=== PATIENT | male | born 1940 | race Caucasian/White ===

== ENCOUNTER 2024-05-18 13:01 | Inpatient (IN) | payer OTHER, SELFPAY ==
[2024-05-18] VITALS (14 sets, daily range): BP systolic 84–124; BP diastolic 46–74; BMI 21.5
[2024-05-18 11:04] LABS: % Basophils 0.2 % (0-2); % Immature Granulocytes 0.5 % (0-0.5); % Lymphocytes 3.7 % (20.5-51.1); % Monocytes 3.8 % (1.7-9.3); % Neutrophils 91.8 % (42.2-75.2); Absolute Immature Granulocytes 0.1 10^3/uL (0-0.05); Absolute Lymphocytes 0.4 10^3/uL (1.2-3.4); Absolute Monocytes 0.4 10^3/uL (0.1-0.6); Absolute Neutrophils 8.7 10^3/uL (1.4-6.5); Hematocrit 37.4 % (39.0-52.0); Hemoglobin 12.7 g/dL (13.0-18.0); Mean Corpuscular Volume 100.3 fL (80.0-94.0); Mean Platelet Volume 10.5 fL (7.4-10.4); Nucleated Red Blood Cells % 0 % (-); Platelet Count 138 10^3/uL (130-400); Red Blood Cell Count 3.73 10^6/uL (4.70-6.10); Red Cell Dist. Width 13.7 % (11.5-14.5); White Blood Cell Count 9.5 10^3/uL (4.8-10.8)
[2024-05-18 11:10] LABS: Urine Albumin 3+ (Neg - Trace); Urine Bilirubin 1+ (Negative); Urine Character Very Cloudy (Clear); Urine Glucose Negative (Negative); Urine Ketone Trace (Negative); Urine Leukocyte 2+ (Negative); Urine Nitrite Positive (Negative); Urine Occult Blood 4+ (Negative); Urine Specific Gravity 1.015 (<1.030); Urine Urobilinogen 2+ (Neg - 1+)
[2024-05-18 11:12] LABS: Urine Color Yellow
[2024-05-18 11:16] LABS: ALT (SGPT) 30 U/L (0-50); AST (SGOT) 61 U/L (17-59); Albumin 3.2 g/dl (3.5-5.0); Alkaline Phosphatase 108 U/L (38-126); Blood Urea Nitrogen 43 mg/dl (9-20); Calcium 9.5 mg/dl (8.4-10.2); Carbon Dioxide 27 mmol/L (22-30); Chloride 106 mmol/L (98-107); Estimated Creatinine Clearance 27 ml/min; Glucose 252 mg/dl (70-99); Potassium 3.9 mmol/L (3.5-5.1); Sodium 145 mmol/L (135-145); Total Bilirubin 1.3 mg/dl (0.2-1.3); eGFR 36.89
[2024-05-18 11:17] LABS: Lactic Acid 3.1 mmol/L (0.7-2.0)
[2024-05-18 11:25] LABS: Urine Mucus Few
[2024-05-18 11:26] LABS: Urine Bacteria Many (Negative); Urine Red Blood Cell 30-40 /HPF (0-2); Urine White Cell >100 /HPF (0-5)
--- NOTE | 2024-05-18 11:32 | ED.GENMED ---
History of Present Illness
General
Chief Complaint: Catheter/Tube Problem
Time Seen by Provider: 05/18/24 10:50
History of Present Illness
History of Present Illness:
83-year-old male with history of diabetes, hypertension, hyperlipidemia, neurogenic bladder with suprapubic catheter placement presenting for concern of fever and altered mental status. Patient arrives with his partner who reports this morning
patient woke up feeling very warm, and seemed confused. He notes that 2 days ago he took him to the urologist because he was pain with passage of urine to his suprapubic catheter. He was started on Azo, however no antibiotics. Reports history of
UTI in the past. Patient himself is a limited historian. Denies any chest pain, difficulty breathing, abdominal pain. No report of recent fall or trauma. Partner at bedside notes normal mentation as of last evening. No additional history
obtained at this time
Past History
Past History
ED Past Medical History: CAD, HTN, Hypercholesterolemia, NIDDM, CA and Other (cardiac)
ED Past Surgical History: Cardiac (CABG x 2 1994)
Social History
Tobacco: Non-smoker
Alcohol: None
Personal: Partner
Living: other
Employment: Retired
Family History
Family History: Other
Phy Exam
Physical Exam
Physical Exam:
General: Well-appearing, no clinical signs of dehydration, nontoxic and in no acute distress
HEENT: protecting airway
Neck: appears supple
CV: Normal heart rate, regular rhythm
Resp: No accessory muscle use, no increased work of breathing, lungs clear to auscultation bilaterally
Abd: Soft and non-distended, no tenderness to palpation
Extremities: No deformities, no swelling, no erythema, pulses and sensation intact
Neuro: alert, disoriented to place and time
: Suprapubic catheter in place, appropriately draining
Rectal: deferred
Psych: Normal affect
Skin: Intact
Sepsis
Sepsis Screening
Sepsis Assessment: Severe Sepsis
Sepsis Screening: Lactate >2mmol/L and Hypotension
Sepsis Screen
Sepsis Screen: Severe Sepsis
Date: 05/18/24
Time: 11:35
Course
Orders/Labs/Results
Orders:
Orders
05/18/24 10:51
Complete Blood Count/With Diff Urgent
Comprehensive Metabolic Panel Urgent
Lactate Level [Lactic Acid] Urgent
Urinalysis Reflex To Culture Urgent
Date Specimen was Collected: 05/18/24
Time Specimen was Collected: 10:49
Urine Microscopic Reflex Cult Urgent
Urine Culture Urgent
MAURO Source: U
Specimen Description:
Date Specimen was Collected: 05/18/24
Time Specimen was Collected: 10:49
05/18/24 10:55
Acetaminophen [Tylenol] 650 mg .ROUTE .STK-MED ONE
05/18/24 11:10
Blood Culture Urgent
MAURO Source: Blood/Venous
Specimen Description:
0.9% Sodium Chloride 1000 ml [Nss] 1,000 ml IV BOLUS
05/18/24 11:11
COVID-19 Antigen Urgent
Source: Nasal Swab
CR Chest - 2 Views Urgent
Comment:
Reason For Exam: sepsis
05/18/24 11:25
Cefepime HCl [Maxipime] 2,000 mg IV NOW STA
05/18/24 11:40
Blood Culture Routine
MAURO Source: Blood/Venous
Specimen Description:
Abnormal Lab Results
05/18/24
10:51
RBC 3.73 L 10^6/uL
(4.70-6.10)
Hgb 12.7 L g/dL
(13.0-18.0)
Hct 37.4 L %
(39.0-52.0)
MCV 100.3 H fL
(80.0-94.0)
MCH 34.0 H pg
(27.0-31.0)
MPV 10.5 H fL
(7.4-10.4)
Abs Immat Gran (auto) 0.1 H 10^3/uL
(0-0.05)
Absolute Neuts (auto) 8.7 H 10^3/uL
(1.4-6.5)
Absolute Lymphs (auto) 0.4 L 10^3/uL
(1.2-3.4)
Neutrophils % 91.8 H %
(42.2-75.2)
Lymphocytes % 3.7 L %
(20.5-51.1)
BUN 43 H mg/dl
(9-20)
Creatinine 1.8 H mg/dL
(0.7-1.3)
Glucose 252 H mg/dl
(70-99)
Lactic Acid 3.1 H mmol/L
(0.7-2.0)
AST 61 H U/L
(17-59)
Total Protein 6.0 L g/dl
(6.3-8.2)
Albumin 3.2 L g/dl
(3.5-5.0)
Urine Ketones Trace A
(Negative)
Ur Occult Blood Reflex 4+ A
(Negative)
Urine Nitrite (Reflex) Positive A
(Negative)
Urine Bilirubin 1+ A
(Negative)
Urine Urobilinogen 2+ A
(Neg - 1+)
Leukocyte Esterase Rfl 2+ A
(Negative)
Urine RBC 30-40 A /HPF
(0-2)
Urine WBC (Reflex) >100 A /HPF
(0-5)
Urine Bacteria (Reflex) Many A
(Negative)
Urine Albumin (Reflex) 3+ A
(Neg - Trace)
05/18/24 10:51
05/18/24 10:51
Vital Signs
Initial and Last Documented VS:
Initial Vital Signs
Pulse Resp BP Pulse Ox
90 18 102/54 98
05/18/24 10:32 05/18/24 10:32 05/18/24 10:32 05/18/24 10:32
Last Documented Vital Signs
Temp Pulse Resp BP Pulse Ox
101.2 F H 90 18 102/54 98
05/18/24 10:50 05/18/24 10:32 05/18/24 10:32 05/18/24 10:32 05/18/24 10:32
MDM/Problems Addressed
MDM/Problems Addressed:
83-year-old male with history of neurogenic bladder with suprapubic catheter, hypertension, hyperlipidemia, diabetes presenting for change in mental status and fever. Vital signs are significant for fever, hypotension, tachycardia.
On exam patient is in no acute distress, however does appear confused, disoriented to place and time. Patient and presenting vital signs concerning for sepsis, meeting SIRS criteria. Plan for laboratory analysis, lactic acid, blood cultures, IV
fluids. Suspected the source of infection is urine. Partner notes that patient was having pain with urination prior to catheter placement on Sunday. Will maintain. Will also check chest x-ray and COVID.
11:40 - Urine does show evidence of infection. Positive nitrites. Will start antibiotics. Will continue IV fluids. Lactate is 3, again consistent with sepsis. Plan for admission.
*Critical Care Note
Total Time (30-74mins, 75-104mins- exclusive of procedures): Not Applicable
ED Attending Note
-
Portions of this chart may have been created with voice recognition software.� Occasional wrong word or��sound alike� substitutions may have occurred due to the inherent limitations of voice recognition software.
Discharge Plan
Departure
Prescriptions:
No Action
donepezil 10 MG tablet
20 mg PO HS
ezetimibe 10 MG tablet
10 mg PO DAILY
rosuvastatin [Crestor] 40 MG tablet
40 mg PO DAILY
memantine 10 MG tablet
10 mg PO BID
metformin 500 MG tablet
500 mg PO BID
omega 7-oos-gdf-fish oil [Fish Oil] 1,200 (144-216) mg Capsule
1 cap PO BID
d-mannose Powder
1 ea PO BID
metoprolol tartrate 50 mg Tablet
50 mg PO BID
cyanocobalamin (vitamin B-12) 1,000 mcg Tablet
1,000 mcg PO DAILY
therapeutic multivitamin Tablet
1 tab PO DAILY
aspirin 81 mg Tablet,Delayed Release (Dr/Ec)
81 mg PO DAILY
Folic Acid 667 Dfe Folate
1 tab PO DAILY
amoxicillin-pot clavulanate 875-125 mg Tablet
1 tab PO Q12 7 Days Qty: 14 0RF
Referrals:
Mauricio Cook MD [Family Provider] -
Interventions
Interventions:
*Risk Screen - Suicide Last Done: 05/18/24 10:31
*General Assessment Last Done: 05/18/24 10:32
*Neglect/Abuse Screening Last Done: 05/18/24 10:31
ED- Fall Risk Assessment Last Done: 05/18/24 10:31
*ED COVID-19 Vaccine History Last Done: 05/18/24 10:31
WU-Dyqluj-Cjgvfamyet Assessment Last Done: 05/18/24 10:43
ED-Male Genitourinary Assessment Last Done: 05/18/24 10:43
Discharge Date and Time
Print Language: CZECH
[2024-05-18] MEDS: TYLENOL 650 MG PO (11:34)
[2024-05-18] MEDS: NSS 1000 IV ×2 (11:35→14:29)
[2024-05-18] MEDS: MAXIPIME 2000 MG IV (11:42)
[2024-05-18 12:03] LABS: COVID-19 Antigen Negative (Negative)
--- NOTE | 2024-05-18 12:18 | HPS.HSE ---
Family Physician
-
Family Physician: Mauricio Cook
Chief Complaint
-
fever confusion
History of Present Illness
83-year-old male with history of diabetes, hypertension, hyperlipidemia, neurogenic bladder with suprapubic catheter placement presenting for concern of fever and altered mental status. he had fever of 101 at home. his Welch was changed two days
ago by urology due to the catheter obstruction. patient complaining of pain at the cath site. denied ANNE, dizzy or syncopal episode. Patient denied chest pain or short of breath. Denied nausea vomiting diarrhea.
Positive urinalysis. Patient received cefepime in ER. Admitting for further management
Medical History
Past Medical History
Past Medical History: Reports Other
Additional Past Medical History:
Neurogenic bladder, CAD, hypertension, dementia, hyperlipidemia, type 2 diabetes,
Past Surgical History: Reports Other
Additional Past Surgical History:
Coronary artery bypass graft, cataract
Social History
Tobacco: Non-smoker
Alcohol: None
Drug: None
Personal:
Living: With Family
Family History
Family History: Not pertinent
Allergies / Home Medications
Allergies reflects when Allergies were last updated in [facility].
Home Medications with original date entered in [facility]
Allergy/Medication List:
Allergies
Allergy/AdvReac Type Severity Reaction Status Date / Time
No Known Allergies Allergy Verified 06/23/23 08:32
Home Medications
donepezil 10 mg tablet 20 mg PO HS memory 12/08/20
ezetimibe 10 mg tablet 10 mg PO DAILY High cholesterol 12/08/20
rosuvastatin 40 mg tablet (Crestor) 40 mg PO DAILY High cholesterol 12/08/20
memantine 10 mg tablet 10 mg PO BID memory 05/13/21
metformin 500 mg tablet 500 mg PO BID Diabetes 05/13/21
Folic Acid 667 Dfe Folate 1 tab PO DAILY Supplement 06/23/23
aspirin 81 mg tablet,delayed release 81 mg PO DAILY Blood Clot Prevention/Tx 06/23/23
cyanocobalamin (vitamin B-12) 1,000 mcg tablet 1,000 mcg PO DAILY Supplement 06/23/23
metoprolol tartrate 50 mg tablet 50 mg PO BID Blood Pressure 06/23/23
therapeutic multivitamin 1 tab PO DAILY Supplement 06/23/23
Review of Systems
-
Constitutional: Reports Fever, Fatigue and Chills
EENT: Reports No Symptoms
Respiratory: Reports No Symptoms
Cardiac: Reports No Symptoms
Abdomen/GI: Reports Abdominal Pain
: Reports Suprapubic Tube
Musculoskeletal: Reports No Symptoms
Skin: Reports No Symptoms
Neurological: Reports No Symptoms
Endocrine: Reports No Symptoms
Hematologic/Lymphatic: Reports No Symptoms
Psych: Reports No Symptoms
Physical Exam
Vital Signs
Vital Signs
Temp Pulse Resp BP Pulse Ox
101.2 F H 107 21 92/56 97
05/18/24 10:50 05/18/24 11:45 05/18/24 11:30 05/18/24 11:00 05/18/24 11:45
Physical Exam
General: Well Developed, Well Nourished and No Apparent Distress
HEENT: NormoCephalic, Moist mucous membranes and Atraumatic
Respiratory: Clear
Cardiac: S1/S2 and Regular Rhythm; No Murmur or Rub
GI: Soft, Non Tender, Non Distended, Normal Bowel Sounds and Tender; No Organomegaly
Rectal: Deferred by Provider
Musculoskeletal: No Clubbing, No Cyanosis and No Edema
Skin: No Rash
Neuro: Nonfocal/grossly intact
Psych: Calm
Laboratory Results
-
05/18/24 10:51
05/18/24 10:51
Laboratory Results
Lactic Acid 3.1 mmol/L (0.7-2.0) H 05/18/24 10:51
Total Bilirubin 1.3 mg/dl (0.2-1.3) 05/18/24 10:51
AST 61 U/L (17-59) H 05/18/24 10:51
ALT 30 U/L (0-50) 05/18/24 10:51
Alkaline Phosphatase 108 U/L (38-126) 05/18/24 10:51
Data Reviewed
-
Lab Data: Labs Reviewed by me
Impression/Plan
-
# Metabolic encephalopathy/fever likely from catheter associated urinary tract infection
# Neurogenic bladder
-Severe sepsis sepsis as evident Lactic 3.1, hypotension and tachycardia and fever
-Blood and urine culture sent from ER
-IV cefepime continued, Tylenol as needed for fever
-Trend lactic, curve WBCs
-obtain CT abdomen pelvis
-Fluids continued
# Acute kidney injury likely dehydration
-Creatinine 1.8
-Normal saline continued
-Monitor BMP in a.m.
# Type 2 diabetes
-Home metformin on hold due to lactic acidosis and ARINA
-Sliding scale
-CHO diet
#Hypertension
-Patient is hypotensive in ER
-Hold metoprolol
#Coronary artery disease CABG
#Hyperlipidemia
-Continue statin, Zetia
-Aspirin continued
#Dementia
-Continue donepezil memantine
DVT prophylaxis heparin subcu
Full code
--- NOTE | 2024-05-18 13:52 | W.PN.UPDATE ---
Update Note
Progress Note Update
This is an addendum to the H&P written by Heather Brown on 05/18/2024.� Patient seen and examined independently with [facility] [employer].
83-year-old male past medical history of CAD status post CABG, hypertension, hyperlipidemia, neurogenic bladder status post suprapubic catheter, CKD 3, dementia, presenting with fever, altered mental status.� He saw urologist 2 days ago due to block
suprapubic catheter was replaced at that time but is also having pain at the site of the catheter.�
Labs show ARINA with creatinine 1.8.
Concern for sepsis secondary to super catheter associated UTI.� Check blood cultures, IV fluids, cefepime, check CT abdomen pelvis to evaluate for clogged suprapubic catheter which has occurred in the past versus pyelonephritis.
[2024-05-18 16:21] LABS: Glucose - Point of Care 260 mg/dl (70-99)
[2024-05-18 16:37] LABS: Lactic Acid 1.2 mmol/L (0.7-2.0)
[2024-05-18] MEDS: NOVOLOG FLEXPEN-MODERATE RESISTANCE 5 UNITS SC (16:46)
[2024-05-18] MEDS: FLOMAX 0.4 MG PO (17:51)
[2024-05-18] MEDS: MAXIPIME 1000 MG IV (17:52)
[2024-05-18] MEDS: NAMENDA 5 MG PO (20:33)
[2024-05-18] MEDS: HEPARIN 5000 UNITS SC (20:33)
--- NOTE | 2024-05-18 20:48 | EDRN ---
Report received patient sleeping, did wake patient to see if he wants to eat dinner, helped cut up his chicken, patient appears to be eating without difficulty. New gown and linen placed on patient and pulled up in bed, will continue to monitor,
call danielle in reach.
[2024-05-18] MEDS: ARICEPT 20 MG PO (22:37)
[2024-05-18 22:42] LABS: Glucose - Point of Care 186 mg/dl (70-99)
[2024-05-19] VITALS (18 sets, daily range): BP systolic 96–127; BP diastolic 38–80
--- NOTE | 2024-05-19 00:46 | EDRN ---
Patient sleeping at this time, will continue to monitor
[2024-05-19] MEDS: NSS 1000 IV ×3 (01:01→20:06)
--- NOTE | 2024-05-19 02:42 | EDRN ---
Report to ANGIE Glasgow
[2024-05-19 06:25] LABS: Glucose - Point of Care 123 mg/dl (70-99)
[2024-05-19 07:02] LABS: Hematocrit 31.9 % (39.0-52.0); Hemoglobin 11.2 g/dL (13.0-18.0); Mean Corp Hgb Conc. 35.1 g/dL (33.0-37.0); Mean Corpuscular Hgb 35.6 pg (27.0-31.0); Mean Corpuscular Volume 101.3 fL (80.0-94.0); Mean Platelet Volume 10.2 fL (7.4-10.4); Platelet Count 109 10^3/uL (130-400); Red Blood Cell Count 3.15 10^6/uL (4.70-6.10); Red Cell Dist. Width 13.7 % (11.5-14.5); White Blood Cell Count 9.8 10^3/uL (4.8-10.8)
--- NOTE | 2024-05-19 09:18 | VNURNOTE ---
Chart reviewed. Patient is current with [facility] nursing. Will continue to follow hospital course and DC plans.
[2024-05-19] MEDS: HEPARIN 5000 UNITS SC ×2 (09:20→20:01)
[2024-05-19] MEDS: ASPIR LOW (ENTERIC COATED) 81 MG PO (09:20)
[2024-05-19] MEDS: FLOMAX 0.4 MG PO (09:20)
[2024-05-19 10:03] LABS: Hematocrit 30.6 % (39.0-52.0); Hemoglobin 10.5 g/dL (13.0-18.0); Mean Corp Hgb Conc. 34.3 g/dL (33.0-37.0); Mean Corpuscular Hgb 34.3 pg (27.0-31.0); Mean Platelet Volume 10.8 fL (7.4-10.4); Platelet Count 138 10^3/uL (130-400); Red Blood Cell Count 3.06 10^6/uL (4.70-6.10); Red Cell Dist. Width 13.7 % (11.5-14.5); White Blood Cell Count 8.9 10^3/uL (4.8-10.8)
[2024-05-19 10:07] LABS: Blood Urea Nitrogen 41 mg/dl (9-20); Calcium 8.3 mg/dl (8.4-10.2); Carbon Dioxide 25 mmol/L (22-30); Chloride 110 mmol/L (98-107); Estimated Creatinine Clearance 38 ml/min; Glucose 135 mg/dl (70-99); Sodium 144 mmol/L (135-145); eGFR 54.51
[2024-05-19] MEDS: CRESTOR 10 MG PO (10:48)
[2024-05-19] MEDS: ZETIA 10 MG PO (10:49)
[2024-05-19] MEDS: NAMENDA 5 MG PO ×2 (10:49→20:00)
[2024-05-19] MEDS: STERILE WATER FOR INJECTION 10 ML IV ×2 (11:52→23:21)
[2024-05-19] MEDS: MAXIPIME 1000 MG IV ×2 (11:53→23:20)
[2024-05-19 12:05] LABS: Glucose - Point of Care 127 mg/dl (70-99)
--- NOTE | 2024-05-19 12:12 | PTCARENOTE ---
Patient resting comfortably in bed, vitals stable. pt afebrile. Suprapubic catheter draining mallorie urine. Blanchable redness on patient sacrum, continues [id number] and pillow for offloading. Confirmed with MD that patient is NPO for possible surgery
today.
--- NOTE | 2024-05-19 12:27 | CONS.URO ---
Consultation
-
Date/Time Consultation Requested: 05/18
Date/Time Consultation Performed: 05/19
Requesting Provider: Hospitalist
Performing Provider: ED
Reason for Consultation: urosepsis, suspected CAUTI, non-obstructing distal right ureteral stone
Medical History
History of Present Illness
83M presents to ED w/ fever, altered mental status, tachycardia.
Noted fever 101F @home.
SPT changed in office due to blockage on 05/16/24 w/ 22Fr latex catheter.
SPT draining well @office visit.
Patient c/o pain at catheter site and general lower abdomen.
Denies N/V.
Past Medical History
Past Medical History: CAD, HTN, NIDDM and Other (dementia, hyperlipidemia, neurogenic bladder)
Past Surgical History: Cardiac (CABG), Urological (SPT placement) and Other (cataracts)
Social History
Tobacco: Non-smoker
Alcohol: None
Drug: None
Personal:
Living: With Family
Family History
Family History: Reviewed & Not Pertinent
Allergies/Home Medications
Allergies
Allergy/AdvReac Type Severity Reaction Status Date / Time
No Known Allergies Allergy Verified 06/23/23 08:32
Home Medications
�Medication �Instructions �Recorded �Confirmed �Type
donepezil 10 mg tablet 20 mg PO HS memory 12/08/20 05/18/24 History
ezetimibe 10 mg tablet 10 mg PO DAILY High cholesterol 12/08/20 05/18/24 History
rosuvastatin 40 mg tablet (Crestor) 40 mg PO DAILY High cholesterol 12/08/20 05/18/24 History
memantine 10 mg tablet 10 mg PO BID memory 05/13/21 05/18/24 History
metformin 500 mg tablet 500 mg PO BID Diabetes 05/13/21 05/18/24 History
Folic Acid 667 Dfe Folate 1 tab PO DAILY Supplement 06/23/23 05/18/24 History
aspirin 81 mg tablet,delayed 81 mg PO DAILY Blood Clot 06/23/23 05/18/24 History
release Prevention/Tx
cyanocobalamin (vitamin B-12) 1,000 mcg PO DAILY Supplement 06/23/23 05/18/24 History
1,000 mcg tablet
metoprolol tartrate 50 mg tablet 50 mg PO BID Blood Pressure 06/23/23 05/18/24 History
therapeutic multivitamin 1 tab PO DAILY Supplement 06/23/23 05/18/24 History
Review of Systems
-
History Source: Patient
A 12 point Review of Systems was completed except as noted: Yes
Physical Exam
Vital Signs
Vital Signs
Temp Pulse Resp BP Pulse Ox
97.3 F 67 22 127/62 95
05/19/24 11:31 05/19/24 11:45 05/19/24 11:45 05/19/24 11:00 05/19/24 11:31
Lab / Testing Results
Laboratory Results
05/19/24 09:37
05/19/24 09:37
Physical Exam
General: No Apparent Distress and Comfortable
HEENT: Normocephalic and Anicteric
Respiratory: Non Labored Respirations
Cardiac: Regular Rhythm
Breast: N/A
GI: Soft, Non Tender and Non Distended
Rectal: Deferred by Provider
Genito-urinary: No Costovertebral Tend and Suprapubic Tube
Musculoskeletal: No Edema
Skin: Warm and Dry
Neuro: AO x 3, No Motor Deficits and Nonfocal/Grossly Intact
Hematologic/Lymphatic: No Lymphadenopathy
Psych: Calm
Assessment / Plan
-
cUTI
Urosepsis
H/o neurogenic bladder w/ SPT drainage
Non-obstructing small right UVJ stone
Labs:
WBC WNL
Cr 1.8 => 1.3
UA +nitrites, >100 WBCs
BCx => E. Coli
UCx => GN bacilli
Imaging:
CTAP w/o IV contrast:
2 mm non-obstructing stone in right UVJ.
Mild distention of right ureter w/o right collecting system distention or hydronephrosis.
Left renal stones and renal cysts.
SPT extends into bladder, collapsed bladder. Mild bladder wall thickening and soft tissue stranding.
Cr improved w/ IVF hydration and IV antibiotics.
CT imaging reviewed - no radiographic evidence of obstructive uropathy.
Stone is small w/o evidence of right renal obstruction - high likelihood of spontaneous passage.
Afebrile and hemodynamically stable today (05/19) w/ clinical improvement noted.
- No indication for ureteroscopic intervention if afebrile and HDS
- CT imaging/report reviewed - no obstructive uropathy noted
- IV antibiotics pending Cx S/S (E. Coli)
- If SBPs allow, start tamsulosin 0.4 mg qhs to facilitate stone passage into bladder
- Will exchange SPT - may consider silastic catheter given recent obstructions
D/w ED physician.
D/w Dr. An.
Data Reviewed
-
Total Time Spent with Patient (in minutes): 4
CT Scan: Image personally visualized and interpreted, Report Reviewed by Me and Discussed with Physician
Lab Data: Labs Reviewed and Discussed with Physician
Old Records: Reviewed
[2024-05-19 15:14] LABS: Glucose - Point of Care 136 mg/dl (70-99)
--- NOTE | 2024-05-19 16:16 | CM ---
VM left for DIXON/Italo to obtain IA info as pt sleeping soundly in room
ED CM missed return call and left another VM
--- NOTE | 2024-05-19 16:27 | W.PN.HOSP.TC ---
Today's Communication/Plan
-
repeat blood cultures
cont cefepime
SPT exchange
IVF
Monitor blood culture clearance, BMP
Assessment / Plan
Assessment / Plan
Physical Exam
General: Well Developed, Well Nourished and No Apparent Distress
HEENT: NormoCephalic, Moist mucous membranes and Atraumatic
Respiratory: Clear
Cardiac: S1/S2 and Regular Rhythm; No Murmur or Rub
GI: Soft, Non Tender, Non Distended, Normal Bowel Sounds and Tender; No Organomegaly
Rectal: Deferred by Provider
Musculoskeletal: No Clubbing, No Cyanosis and No Edema
Skin: No Rash
Neuro: Nonfocal/grossly intact
Psych: Calm
#Complicated UTI
#Severe sepsis - Lactic 3.1, tachycardia and fever
#Bacteremia
--Blood and urine culture; repeat blood culture
-IV cefepime continued, Tylenol as needed for fever
-Trend lactic, curve WBCs
-Fluids continued
�SPT exchange
#H/o neurogenic bladder w/ SPT drainage
#Non-obstructing small right UVJ stone
--Fluids continued
�no evidence of obstruction, high likelihood of spontaneous passage
� Exchange SPT
� Urology consulted
� May start tamsulosin depending on blood pressures
� See plan for sepsis above
� No indication for acute urological procedure at this time
# Acute kidney injury likely septic ATN versus prerenal
-Creatinine 1.8�improved with fluids
-Continue IV fluids, monitor stone passage
-Monitor BMP in a.m.
# Metabolic encephalopathy/fever likely from catheter associated urinary tract infection
�Appears to have improved
# Type 2 diabetes
-Home metformin on hold due to lactic acidosis and ARINA
-Sliding scale
-CHO diet
#Hypertension
-Patient is hypotensive in ER
-Hold metoprolol
#Coronary artery disease CABG
#Hyperlipidemia
-Continue statin, Zetia
-Aspirin continued
#Dementia
-Continue donepezil memantine
DVT prophylaxis heparin subcu
Full code
Total time spent on today's encounter was 50 minutes which included time spent in counseling the patient/family regarding diagnosis and treatment plan as listed above, goals of care, and symptom management. Case was discussed with nursing staff,
specialists, and care coordinators/case management. All labs and imaging personally reviewed by me. Remainder the time spent in detailed review of previous records, lab data, imaging, and other medical provider documentation.
Anticipated Discharge: 24 - 48 hours
Subjective/Interval History
-
Date of Service: May 19, 2024
No acute events overnight
Objective Data
-
Labs:
Laboratory Results
05/19/24 05/19/24
06:13 09:37
WBC 9.8 8.9
Hgb 11.2 L 10.5 L
Hct 31.9 L 30.6 L
Plt Count 109 L D 138 D
Sodium 144
Potassium
Chloride 110 H
Carbon Dioxide 25
BUN 41 H
Creatinine 1.3
Glucose 135 H
Calcium 8.3 L
Total Bilirubin Cancelled
AST Cancelled
ALT Cancelled
Alkaline Phosphatase Cancelled
Vital Signs:
Vital Signs
Temp Pulse Resp BP Pulse Ox
98.1 F 64 19 107/55 98
05/19/24 14:22 05/19/24 14:22 05/19/24 14:22 05/19/24 14:22 05/19/24 14:25
I&O
05/18/24 05/19/24 05/20/24
06:59 06:59 06:59
Intake Total 1440 / 1440 400 / 400
Output Total 800 / 800 100 / 100
Balance 640 / 640 300 / 300
Review of Systems
-
History Source: Patient
All other systems: Not reviewed unless documented
Data Reviewed
-
Diagnostic Radiology: Image personally visualized and interpreted and Report Reviewed by me
CT Scan: Image personally visualized and interpreted and Report Reviewed by me
Labs: Labs Reviewed by me
[2024-05-19] MEDS: NOVOLOG FLEXPEN-MODERATE RESISTANCE SC (17:20)
[2024-05-19] MEDS: ARICEPT 20 MG PO (20:00)
[2024-05-19 21:23] LABS: Glucose - Point of Care 171 mg/dl (70-99)
[2024-05-20 07:26] VITALS: BP 145/82
[2024-05-20 07:38] LABS: Glucose - Point of Care 137 mg/dl (70-99)
--- NOTE | 2024-05-20 07:55 | W.PN.URO.CBU ---
Today's Communication / Plan
-
- No indication for ureteroscopic intervention
- CT imaging/report reviewed - no obstructive uropathy noted
- IV antibiotics pending Cx S/S
- continue tamsulosin 0.4 mg qhs to facilitate stone passage into bladder
- Resume regular SPT changes on discharge - may consider silastic catheter given recent obstructions
D/w patient.
D/w Dr. An.
Assessment / Plan
-
cUTI
Urosepsis
H/o neurogenic bladder w/ SPT drainage
Non-obstructing small right UVJ stone
WBC WNL
Cr 1.8 => 1.3 => 1.3
UA +nitrites, >100 WBCs
BCx => E. Coli
UCx => E. Coli, Oxytoca
SPT replaced w/ good drainage noted.
Cr improved w/ IVF + IV abx.
CT imaging reviewed - no radiographic evidence of obstructive uropathy.
Stone is small w/o evidence of right renal obstruction - high likelihood of spontaneous passage.
Diagnosis
-
Date of Service: May 20, 2024
-
Patient Diagnosis:
cUTI
Urosepsis
H/o neurogenic bladder w/ SPT
Non-obstructing small right UVJ stone
Subjective
-
Feels well.
Notes suprapubic and abdominal pain has resolved.
SPT draining clear yellow urine.
Denies right flank or abdominal pain.
Objective
-
Vital Signs
Temp Pulse Resp BP Pulse Ox
98.3 F 105 18 145/82 95
05/20/24 07:26 05/20/24 07:26 05/20/24 07:26 05/20/24 07:26 05/20/24 07:26
Intake and Output
05/19/24 05/20/24 05/21/24
06:59 06:59 06:59
Intake Total 1440 / 1440 1620 / 1620
Output Total 800 / 800 3200 / 3200
Balance 640 / 640 -1580 / -1580
Intake:
Oral fluids 1440 / 1440 720 / 720
IV fluids (Total) 900 / 900
Output:
Urine, Welch 2200 / 2200
Urine, Voided 450 / 450
Suprapubic output 350 / 350 1000 / 1000
Laboratory Results
05/20/24 07:10
05/20/24 07:10
Physical Exam
-
General - well developed, well nourished, no acute distress
Abdomen - soft, non-tender, non-distended, 22Fr latex SPT in place draining clear yellow urine, no discharge/purulence/erythema @SPT site
Genitalia - normal
Skin - warm & dry with no rash
Neuro - AOx3, no motor deficits
Extremities - no clubbing, no cyanosis, no edema
Care Review
Data Reviewed
Discussed with: Hospitalist
CT Scan: Report Pers Reviewed and Image Pers Reviewed
[2024-05-20 08:11] LABS: ALT (SGPT) 187 U/L (0-50); AST (SGOT) 290 U/L (17-59); Albumin 2.5 g/dl (3.5-5.0); Alkaline Phosphatase 96 U/L (38-126); Blood Urea Nitrogen 29 mg/dl (9-20); Calcium 8.1 mg/dl (8.4-10.2); Carbon Dioxide 21 mmol/L (22-30); Chloride 110 mmol/L (98-107); Estimated Creatinine Clearance 38 ml/min; Glucose 130 mg/dl (70-99); Magnesium 2.1 mg/dl (1.6-2.3); Potassium 3.5 mmol/L (3.5-5.1); Sodium 143 mmol/L (135-145); Total Bilirubin 1.1 mg/dl (0.2-1.3); eGFR 54.51
[2024-05-20 08:12] LABS: Hematocrit 30.3 % (39.0-52.0); Hemoglobin 10.8 g/dL (13.0-18.0); Mean Corp Hgb Conc. 35.6 g/dL (33.0-37.0); Mean Corpuscular Hgb 35.3 pg (27.0-31.0); Mean Platelet Volume 10.1 fL (7.4-10.4); Platelet Count 110 10^3/uL (130-400); Red Blood Cell Count 3.06 10^6/uL (4.70-6.10); Red Cell Dist. Width 13.4 % (11.5-14.5); White Blood Cell Count 6.5 10^3/uL (4.8-10.8)
[2024-05-20] MEDS: NOVOLOG FLEXPEN-MODERATE RESISTANCE SC (08:27)
[2024-05-20] MEDS: NSS 1000 IV (08:28)
[2024-05-20] MEDS: NAMENDA 5 MG PO ×2 (08:28→21:41)
[2024-05-20] MEDS: HEPARIN 5000 UNITS SC ×2 (08:29→21:41)
[2024-05-20] MEDS: ASPIR LOW (ENTERIC COATED) 81 MG PO (08:29)
[2024-05-20] MEDS: FLOMAX 0.4 MG PO (08:29)
[2024-05-20] MEDS: ZETIA 10 MG PO (08:29)
[2024-05-20] MEDS: CRESTOR 10 MG PO (08:29)
--- NOTE | 2024-05-20 10:32 | PTCARENOTE ---
pt awake oriented to self. states no pain. room air. ivf running as ordered. suprapubic tube in place
[2024-05-20 11:34] LABS: Glucose - Point of Care 203 mg/dl (70-99)
[2024-05-20] MEDS: STERILE WATER FOR INJECTION 10 ML IV (11:43)
[2024-05-20] MEDS: MAXIPIME 1000 MG IV (11:43)
[2024-05-20] MEDS: NOVOLOG FLEXPEN-MODERATE RESISTANCE 3 UNITS SC (11:44)
--- NOTE | 2024-05-20 11:50 | CM ---
Addendum entered by Jeanette Carson 05/20/24 15:40:
Patient is current with [facility], [facility] will follow with patient after discharge
Plan; Home with [facility].
Original Note:
logistics planning manager reviewed patient's chart and met with patient and patient states that he lives with his spouse in a 2 story home, patient is independent with adl's and ambulation, no dme.
PCP: Dr. Crum
Pharamcy: Frank López
Plan; Home with spouse when stable, no needs.
--- NOTE | 2024-05-20 14:08 | W.PN.HOSP.TC ---
Today's Communication/Plan
-
f/u repeat blood cultures
Cont ivf, monitor bmp
ID consulted - anticipate switching to oral regimen within 24-48 hours
Assessment / Plan
Assessment / Plan
#Complicated UTI
#Severe sepsis - Lactic 3.1, tachycardia and fever
#Bacteremia
--Blood and urine culture; repeat blood culture; Urine: Klebsiella oxytoca, E. coli; blood cultures E. coli
-IV cefepime continued, Tylenol as needed for fever
-Trend lactic, curve WBCs
-Fluids continued
�SPT exchange
-ID consulted
#H/o neurogenic bladder w/ SPT drainage
#Non-obstructing small right UVJ stone
--Fluids continued
�no evidence of obstruction, high likelihood of spontaneous passage
� Successful Exchange SPT 05/19
� Urology consulted
� tamsulosin
� See plan for sepsis above
� No indication for acute urological procedure at this time
- Resume regular SPT changes on discharge - may consider silastic catheter given recent obstructions
# Acute kidney injury likely septic ATN versus prerenal - resolving
-Creatinine 1.8�improved with fluids
-Continue IV fluids, monitor stone passage
-Monitor BMP in a.m.
# Transaminitis
� Bilirubin within normal limits, alk phos within normal limits
� Most likely secondary to infection
� Continue to monitor outpatient
�CT abdomen/pelvis with no remarkable findings in the liver, gallbladder, biliary duct, pancreas
# Metabolic encephalopathy/fever likely from catheter associated urinary tract infection
�resolved
# Type 2 diabetes
-Home metformin on hold due to lactic acidosis and ARINA
-Sliding scale
-CHO diet
#Hypertension
-Patient is hypotensive in ER
-Hold metoprolol
#Coronary artery disease CABG
#Hyperlipidemia
-Continue statin, Zetia
-Aspirin continued
#Dementia
-Continue donepezil memantine
DVT prophylaxis heparin subcu
Full code
Total time spent on today's encounter was 53 minutes which included time spent in counseling the patient/family regarding diagnosis and treatment plan as listed above, goals of care, and symptom management. Case was discussed with nursing staff,
specialists, and care coordinators/case management. All labs and imaging personally reviewed by me. Remainder the time spent in detailed review of previous records, lab data, imaging, and other medical provider documentation.
Anticipated Discharge: 24 - 48 hours
Subjective/Interval History
-
Date of Service: May 20, 2024
No acute events overnight
Objective Data
-
Labs:
Laboratory Results
05/20/24
07:10
WBC 6.5
Hgb 10.8 L
Hct 30.3 L
Plt Count 110 L D
Sodium 143
Potassium 3.5
Chloride 110 H
Carbon Dioxide 21 L
BUN 29 H
Creatinine 1.3
Glucose 130 H
Calcium 8.1 L
Total Bilirubin 1.1
AST 290 H
ALT 187 H
Alkaline Phosphatase 96
Vital Signs:
Vital Signs
Temp Pulse Resp BP Pulse Ox
98.3 F 105 18 145/82 95
05/20/24 07:26 05/20/24 07:26 05/20/24 07:26 05/20/24 07:26 05/20/24 07:26
I&O
05/19/24 05/20/24 05/21/24
06:59 06:59 06:59
Intake Total 1440 / 1440 1620 / 1620
Output Total 800 / 800 3200 / 3200
Balance 640 / 640 -1580 / -1580
Review of Systems
-
History Source: Patient
All other systems: Not reviewed unless documented
Physical Exam
-
General: No Apparent Distress
HEENT: Moist Mucous Membranes
Respiratory: Clear to Auscultation
Cardiac: Regular Rhythm and S1/S2
GI: Soft, Nontender, Nondistended and Normal Bowel Sounds
Genito-urinary: Supra Pubic Tube (22Fr latex SPT in place draining clear yellow urine, no discharge/purulence/erythema @SPT site)
Neuro: AO x 3
Psych: Calm; Negative Confused or Agitated
Data Reviewed
-
Diagnostic Radiology: Image personally visualized and interpreted and Report Reviewed by me
CT Scan: Image personally visualized and interpreted and Report Reviewed by me
Labs: Labs Reviewed by me
[2024-05-20] MEDS: LR 1000 IV (14:40)
--- NOTE | 2024-05-20 15:07 | CON.ID ---
Consultation
-
Date/Time Consultation Requested: 05/20/2024 0919
Date/Time Consultation Performed: 05/20/2024 1450
Requesting Provider: Dr. An
Performing Provider: Dr. Gtz
Reason for Consultation: Bacteremia; complicated urinary tract infection
Chief Complaint / Past History
History of Present Illness
Glenroy Benoit is an 83-year-old man with a significant past medical history of neurogenic bladder and chronic suprapubic catheter being evaluated at the request of Dr. An regarding a complicated urinary tract infection and bacteremia.
History is obtained from chart review along with patient interview although the patient was found to be able to provide very little in the way of history.
The patient presents to [facility] on 05/18 after his partner reported a change in mental status earlier in the day. ER notes report that confusion was noted to some degree on the day of admission. 2 days prior, the patient was seen by
Neurology and had his suprapubic catheter changed. Prior to arrival in the ER, the patient was noted to have a fever to 101 degrees at home.
At presentation, the patient was not noted to have a leukocytosis but did have a fever to 101.2 degrees. Blood cultures obtained at the time of admission are now positive for E. coli, and Infectious Diseases is asked to comment upon further
antimicrobial management.
At the present time, the patient denies any pain. He denies any headache. Denies any shortness of breath, cough or congestion. He denies any abdominal discomfort. He describes no suprapubic discomfort.
Past History
Additional Past Medical History:
CAD; Hx UT
HTN
Dyslipidemia
Diabetes mellitus
CKD
Neurogenic bladder
Additional Past Surgical History:
CABG (1994)
Suprapubic catheter placement
Allergy History:
No Known Allergies Allergy (Verified 06/23/23 08:32)
Medications Reviewed: Yes
Current Antibiotics:
Cefepime 1 g IV every 12 hours
Social History
Tobacco: Non-Smoker
Alcohol: None
Drug: None
Personal: Partner
Living: With Family
Employment: Retired
Family History
Family History: Not Pertinent
Review of Systems
Vital Signs
Temp Pulse Resp BP Pulse Ox
98.3 F 105 18 145/82 95
05/20/24 07:26 05/20/24 07:26 05/20/24 07:26 05/20/24 07:26 05/20/24 07:26
Physical Exam
Physical Exam
Constitutional: No Acute Distress, Comfortable and Non-toxic
Eyes: Pupils Equal, Pupils Round, No Conjunctival Hemorrhage and Sclera Anicteric
Oral: No Thrush and No Ulcers
Cardiovascular: Regular Rate and S1/S2; Negative S3/S4
Pulmonary: Clear; Negative Wheezes, Rales or Rhonchi
Gastrointestinal: Soft, Non Tender, Non Distended, Normal Bowel Sounds, No Rebound and No Guarding
Genito-Urinary: Welch (Suprapubic) and Clear Urine; Negative Suprapubic Tenderness, Turbid Urine or Hematuria
Extremities: Negative Edema, Cyanosis, Erythema or Venous Insufficiency
Neurological: Awake and Alert
Psychological: Confused
.
Lab / Diagnostic Study Results
05/20/24 07:10
05/20/24 07:10
Abs Immat Gran (auto) 0.1 10^3/uL (0-0.05) H 05/18/24 10:51
Absolute Neuts (auto) 8.7 10^3/uL (1.4-6.5) H 05/18/24 10:51
Absolute Lymphs (auto) 0.4 10^3/uL (1.2-3.4) L 05/18/24 10:51
Absolute Monos (auto) 0.4 10^3/uL (0.1-0.6) 05/18/24 10:51
Absolute Basos (auto) 0.0 10^3/uL (0-0.2) 05/18/24 10:51
Immature Gran % 0.5 % (0-0.5) 05/18/24 10:51
Neutrophils % 91.8 % (42.2-75.2) H 05/18/24 10:51
Lymphocytes % 3.7 % (20.5-51.1) L 05/18/24 10:51
Monocytes % 3.8 % (1.7-9.3) 05/18/24 10:51
Eosinophils % 0.0 % (0-6) 05/18/24 10:51
Basophils % 0.2 % (0-2) 05/18/24 10:51
Lactic Acid Cancelled 05/18/24 23:00
Ur Squamous Epith Cells 3-5 /LPF (Few) 05/18/24 10:51
Microbiology Results
Micro:
05/19/24 09:58 Blood Culture - Preliminary
Blood/Venous No Growth in 24 hours- Final report to follow
05/20/24 09:29 Blood Culture - Pending
Blood/Venous
05/18/24 10:51 Urine Culture - Final
Urine Escherichia coli
Klebsiella oxytoca
05/18/24 11:32 Blood Culture - Preliminary
Blood/Venous Positive culture in progress
Gram Stain - Final
05/18/24 11:32 Blood Culture - Preliminary
Blood/Venous Escherichia coli
Gram Stain - Final
Imaging:
05/18/2024 CT abdomen/pelvis without contrast: The suprapubic catheter extends into the bladder lumen. Bladder is collapsed. Mild bladder wall thickening and soft tissue stranding which may be acute versus chronic inflammatory changes or cystitis.
No bladder calculus. No ascites or adenopathy. A 2 mm calculus is in the right ureterovesical junction. Mild distention of the ureter. No significant intra renal collecting system distention or hydronephrosis noted. Please see full dictation
for additional detail.
Assessment / Plan
E. coli bacteremia
Complicated urinary tract infection (CAUTI; POA)
Fever
ARINA; improved
Transaminitis
CAD; Hx UT
HTN
Dyslipidemia
Diabetes mellitus
Neurogenic bladder; suprapubic catheter in place
Recommendations:
Continue with cefepime for the present.
Follow white count and temperature curve.
Trend LFTs
Further recommendations as additional data is returned.
[2024-05-20 15:10] VITALS: BP 120/58
[2024-05-20 16:06] LABS: Glucose - Point of Care 188 mg/dl (70-99)
[2024-05-20] MEDS: NOVOLOG FLEXPEN-MODERATE RESISTANCE 1 UNITS SC (17:00)
[2024-05-20 21:12] LABS: Glucose - Point of Care 236 mg/dl (70-99)
[2024-05-20] MEDS: ARICEPT 20 MG PO (21:42)
[2024-05-20 22:42] VITALS: BP 151/71
[2024-05-21] MEDS: STERILE WATER FOR INJECTION 10 ML IV ×2 (01:00→13:52)
[2024-05-21] MEDS: MAXIPIME 1000 MG IV ×2 (01:00→13:51)
[2024-05-21] MEDS: LR 1000 IV (04:00)
--- NOTE | 2024-05-21 07:42 | W.PN.URO.CBU ---
Today's Communication / Plan
-
- CT imaging/report reviewed - no obstructive uropathy noted
- IV Cefepime per ID Cx S/S
- continue tamsulosin 0.4 mg qhs to facilitate stone passage into bladder
- Resume regular SPT changes w/ VN on discharge - may consider silastic catheter given recent obstructions
D/w patient.
D/w Dr. An.
Assessment / Plan
-
Urosepsis
E. Coli bacteremia
H/o neurogenic bladder w/ SPT drainage
Non-obstructing small right UVJ stone
WBC WNL
Cr 1.8 => 1.3 => 1.3
UA +nitrites, >100 WBCs
BCx => E. Coli
UCx => E. Coli, Oxytoca
SPT exchanged w/ clear UOP.
Cr improved w/ IVF + IV abx.
CT imaging reviewed - no radiographic evidence of obstructive uropathy.
Diagnosis
-
Date of Service: May 21, 2024
-
Patient Diagnosis:
Post Op Day:
Patient Diagnosis:
cUTI
Urosepsis
H/o neurogenic bladder w/ SPT
Non-obstructing small right UVJ stone
Subjective
-
Feels well.
Afebrile.
SPT exchanged and draining clear urine.
Suprapubic/abdominal pain resolved.
Tolerating diet.
Objective
-
Vital Signs
Temp Pulse Resp BP Pulse Ox
98.2 F 75 20 143/70 95
05/21/24 07:49 05/21/24 07:49 05/21/24 07:49 05/21/24 07:49 05/21/24 07:49
Intake and Output
05/20/24 05/21/24 05/22/24
06:59 06:59 06:59
Intake Total 1620 / 1620 1750 / 1750
Output Total 3200 / 3200 4250 / 4250
Balance -1580 / -1580 -2500 / -2500
Intake:
Oral fluids 720 / 720 600 / 600
IV fluids (Total) 900 / 900 1150 / 1150
Output:
Urine, Welch 2200 / 2200
Suprapubic output 1000 / 1000 4250 / 4250
Physical Exam
-
General - well developed, well nourished, no acute distress
Abdomen - soft, non-tender, non-distended, SPT in place draining clear urine, no purulent discharge or erythema @SPT site
Genitalia - normal
Skin - warm & dry with no rash
Extremities - no clubbing, no cyanosis, no edema
Care Review
Data Reviewed
Discussed with: Hospitalist
CT Scan: Report Pers Reviewed and Image Pers Reviewed
[2024-05-21 07:49] VITALS: BP 143/70
[2024-05-21 08:04] LABS: Glucose - Point of Care 167 mg/dl (70-99)
[2024-05-21 08:21] LABS: Hematocrit 30.3 % (39.0-52.0); Hemoglobin 10.7 g/dL (13.0-18.0); Mean Corp Hgb Conc. 35.3 g/dL (33.0-37.0); Mean Corpuscular Hgb 33.4 pg (27.0-31.0); Mean Corpuscular Volume 94.7 fL (80.0-94.0); Platelet Count 124 10^3/uL (130-400); White Blood Cell Count 6.2 10^3/uL (4.8-10.8)
[2024-05-21] MEDS: NOVOLOG FLEXPEN-MODERATE RESISTANCE 1 UNITS SC ×3 (08:21→16:12)
[2024-05-21] MEDS: HEPARIN 5000 UNITS SC (08:22)
[2024-05-21] MEDS: NAMENDA 5 MG PO (08:24)
[2024-05-21] MEDS: ASPIR LOW (ENTERIC COATED) 81 MG PO (08:24)
[2024-05-21] MEDS: ZETIA 10 MG PO (08:25)
[2024-05-21] MEDS: FLOMAX 0.4 MG PO (08:25)
[2024-05-21] MEDS: CRESTOR 10 MG PO (08:25)
[2024-05-21 08:49] LABS: ALT (SGPT) 123 U/L (0-50); AST (SGOT) 88 U/L (17-59); Albumin 2.5 g/dl (3.5-5.0); Alkaline Phosphatase 103 U/L (38-126); Blood Urea Nitrogen 22 mg/dl (9-20); Calcium 8.3 mg/dl (8.4-10.2); Carbon Dioxide 23 mmol/L (22-30); Chloride 108 mmol/L (98-107); Estimated Creatinine Clearance 45 ml/min; Glucose 164 mg/dl (70-99); Potassium 3.4 mmol/L (3.5-5.1); Sodium 143 mmol/L (135-145); Total Bilirubin 0.8 mg/dl (0.2-1.3); Total Protein 5.1 g/dl (6.3-8.2); eGFR > 60.00
[2024-05-21 11:50] LABS: Glucose - Point of Care 191 mg/dl (70-99)
--- NOTE | 2024-05-21 12:21 | W.PN.ID1 ---
Date of Service
Date of Service: May 21, 2024
Today's Communication
Transition to cefdinir.
Assessment / Plan
E. coli bacteremia
Complicated urinary tract infection (CAUTI; POA)
Fever
ARINA; improved
Transaminitis
CAD; Hx HI
HTN
Dyslipidemia
Diabetes mellitus
Neurogenic bladder; suprapubic catheter in place
Recommendations:
Patient overall clinically improved.
Transition to oral cefdinir, to complete 7 more days of antibiotics.
Chief Complaint
-: UTI and Bacteremia
Subjective / Review of Systems
Patient seen and examined. Denies specific complaints. No fevers or chills.
Vital Signs / Physical Exam
Vital Signs
Vital Signs
Temp Pulse Resp BP Pulse Ox
98.2 F 75 20 143/70 95
05/21/24 07:49 05/21/24 07:49 05/21/24 07:49 05/21/24 07:49 05/21/24 07:49
Physical Exam
Constitutional: No Acute Distress, Comfortable, Chronically Ill and Non-toxic
Eyes: Sclera Anicteric
Cardiovascular: S1/S2; Negative S3/S4
Pulmonary: Non Labored
Gastrointestinal: Soft and Non Tender
Genito-Urinary: Welch (Suprapubic) and Clear Urine; Negative Suprapubic Tenderness, Turbid Urine or Hematuria
Neurological: Awake and Alert
Psychological: Calm
Objective Data
Lab Data
Lab Results
05/21/24 07:53
05/21/24 07:53
Estimated Creat Clear 45 ml/min 05/21/24 07:53
Lactic Acid Cancelled 05/18/24 23:00
Total Bilirubin 0.8 mg/dl (0.2-1.3) 05/21/24 07:53
AST 88 U/L (17-59) H 05/21/24 07:53
ALT 123 U/L (0-50) H 05/21/24 07:53
Alkaline Phosphatase 103 U/L (38-126) 05/21/24 07:53
Most recent labs reviewed.
Micro Results:
05/18/24 11:32 Blood Culture - Final
Blood/Venous Escherichia coli
Gram Stain - Final
05/18/24 11:32 Blood Culture - Final
Blood/Venous Escherichia coli
Gram Stain - Final
05/19/24 09:58 Blood Culture - Preliminary
Blood/Venous No Growth in 48 hours- Final report to follow
05/20/24 09:29 Blood Culture - Preliminary
Blood/Venous No Growth in 24 hours- Final report to follow
05/18/24 10:51 Urine Culture - Final
Urine Escherichia coli
Klebsiella oxytoca
Imaging:
05/18/2024 CT abdomen/pelvis without contrast: The suprapubic catheter extends into the bladder lumen. Bladder is collapsed. Mild bladder wall thickening and soft tissue stranding which may be acute versus chronic inflammatory changes or cystitis.
No bladder calculus. No ascites or adenopathy. A 2 mm calculus is in the right ureterovesical junction. Mild distention of the ureter. No significant intra renal collecting system distention or hydronephrosis noted. Please see full dictation
for additional detail.
Care Review
Plan reviewed with: Physician (Hospitalist)
--- NOTE | 2024-05-21 13:06 | W.PN.HOSP.TC ---
Addendum entered and electronically signed by Kang An MD 05/21/24 18:03:
[id number]
Original Note:
Today's Communication/Plan
-
cefdinir x 7 days
f/u with pcp, urology
SPT exchange by VN
Assessment / Plan
Assessment / Plan
#Complicated UTI ([place], POA)
#Severe sepsis - Lactic 3.1, tachycardia and fever
#Bacteremia, E. coli
--Blood and urine culture; repeat blood culture; Urine: Klebsiella oxytoca, E. coli; blood cultures E. coli
-IV cefepime continued, Tylenol as needed for fever�transition over to cefdinir to complete 7 more days
�SPT exchange - VN at home
-ID consulted
-F/u urology outpatient
#H/o neurogenic bladder w/ SPT drainage
#Non-obstructing small right UVJ stone
--Fluids continued
�no evidence of obstruction, high likelihood of spontaneous passage
� Successful Exchange SPT 05/19
� Urology consulted
� tamsulosin
� See plan for sepsis above
� No indication for acute urological procedure at this time
- Resume regular SPT changes on discharge - may consider silastic catheter given recent obstructions
# Acute kidney injury likely septic ATN versus prerenal - resolved
-Creatinine 1.8�improved with fluids
-Monitor BMP outpatient
# Transaminitis
� Bilirubin within normal limits, alk phos within normal limits
� Most likely secondary to infection
- improving
� Continue to monitor outpatient
�CT abdomen/pelvis with no remarkable findings in the liver, gallbladder, biliary duct, pancreas
#Hypokalemia
-monitor and replete
# Metabolic encephalopathy/fever likely from catheter associated urinary tract infection
�resolved
# Type 2 diabetes
-metformin
-Sliding scale
-CHO diet
#Hypertension
resume metoprolol
#Coronary artery disease CABG
#Hyperlipidemia
-Continue statin, Zetia
-Aspirin continued
#Dementia
-Continue donepezil memantine
DVT prophylaxis heparin subcu
Full code
More than 30 minutes spent in discharge including
Final examination of the patient
Summarizing hospital stay
Instructions for continuing care to all relevant caregivers
Preparation of discharge records, prescriptions, and referral forms
Total time spent (35 in minutes):
Anticipated Discharge: Today
Subjective/Interval History
-
Date of Service: May 21, 2024
No acute events overnight
Objective Data
-
Labs:
Laboratory Results
05/21/24
07:53
WBC 6.2
Hgb 10.7 L
Hct 30.3 L
Plt Count 124 L
Sodium 143
Potassium 3.4 L
Chloride 108 H
Carbon Dioxide 23
BUN 22 H
Creatinine 1.1
Glucose 164 H
Calcium 8.3 L
Total Bilirubin 0.8
AST 88 H
ALT 123 H
Alkaline Phosphatase 103
Vital Signs:
Vital Signs
Temp Pulse Resp BP Pulse Ox
98.2 F 75 20 143/70 95
05/21/24 07:49 05/21/24 07:49 05/21/24 07:49 05/21/24 07:49 05/21/24 07:49
I&O
05/20/24 05/21/24 05/22/24
06:59 06:59 06:59
Intake Total 1620 / 1620 1750 / 1750
Output Total 3200 / 3200 4250 / 4250
Balance -1580 / -1580 -2500 / -2500
Review of Systems
-
History Source: Patient
All other systems: Not reviewed unless documented
Physical Exam
-
General: No Apparent Distress
HEENT: Moist Mucous Membranes
Respiratory: Clear to Auscultation
Cardiac: Regular Rhythm and S1/S2
GI: Soft, Nontender, Nondistended and Normal Bowel Sounds
Genito-urinary: Supra Pubic Tube (22Fr latex SPT in place draining clear yellow urine, no discharge/purulence/erythema @SPT site)
Neuro: AO x 3
Psych: Calm; Negative Confused or Agitated
Data Reviewed
-
Diagnostic Radiology: Image personally visualized and interpreted and Report Reviewed by me
CT Scan: Image personally visualized and interpreted and Report Reviewed by me
Labs: Labs Reviewed by me
--- NOTE | 2024-05-21 13:10 | W.DS.TRANS ---
DC Summary - [employer]
-
Discharge Instructions:
Discharge Diagnosis/Procedures Complicated UTI
E. coli bacteremia
ARINA
Diet Diabetic, Carb Controlled,Low Cholesterol,Low
Fat
Activity As tolerated
Blood Work CBC, CMP(K and LFTs) in 3 to 5 days with PCP
Instructions:
Stand-Alone Forms:
Changes to Home Medications: No
Discharge Medications:
DC Medications w/original date entered in [employer]
donepezil 10 mg tablet 20 mg PO HS memory 12/08/20
ezetimibe 10 mg tablet 10 mg PO DAILY High cholesterol 12/08/20
rosuvastatin 40 mg tablet (Crestor) 40 mg PO DAILY High cholesterol 12/08/20
memantine 10 mg tablet 10 mg PO BID memory 05/13/21
metformin 500 mg tablet 500 mg PO BID Diabetes 05/13/21
Folic Acid 667 Dfe Folate 1 tab PO DAILY Supplement 06/23/23
aspirin 81 mg tablet,delayed release 81 mg PO DAILY Blood Clot Prevention/Tx 06/23/23
cyanocobalamin (vitamin B-12) 1,000 mcg tablet 1,000 mcg PO DAILY Supplement 06/23/23
metoprolol tartrate 50 mg tablet 50 mg PO BID Blood Pressure 06/23/23
therapeutic multivitamin 1 tab PO DAILY Supplement 06/23/23
cefdinir 300 mg capsule 300 mg PO Q12 7 days #14 caps 05/21/24
tamsulosin 0.4 mg capsule 0.4 mg PO DAILY 30 days #30 caps 05/21/24
Home Medication Changes
cefdinir 300 mg capsule 300 mg PO Q12 7 days #14 caps 05/21/24
tamsulosin 0.4 mg capsule 0.4 mg PO DAILY 30 days #30 caps 05/21/24
Pending Results: No
--- NOTE | 2024-05-21 13:20 | CM ---
Plan Home with [facility].
Plan; Home with [facility]
[2024-05-21] MEDS: KCL ELIXIR 40 MEQ PO (13:50)
[2024-05-21] MEDS: MAXIPIME IV (14:15)
[2024-05-21] MEDS: STERILE WATER FOR INJECTION IV (14:15)
[2024-05-21 15:15] VITALS: BP 120/59
[2024-05-21 16:09] LABS: Glucose - Point of Care 170 mg/dl (70-99)
== END 2024-05-21 18:38 | disposition home health service (06) | DRG 698 ==
LOC: 4 WEST ACU 13:01
PROVIDERS: Registered Nurse; ADMITTING PHYSICIAN Hospitalist; ATTENDING PHYSICIAN Internal Medicine; CONSULT PHYSICIAN Surgery; EMERGENCY PHYSICIAN Student in an Organized Health Care Education/Training Program; FAMILY PHYSICIAN Family Medicine; OTHER PHYSICIAN Internal Medicine Infectious Disease
DX: T83.511A Infection and inflammatory reaction due to indwelling urethral catheter, initial encounter (principal); A41.51 Sepsis due to Escherichia coli [E. coli]; G93.41 Metabolic encephalopathy; R65.20 Severe sepsis without septic shock; N17.9 Acute kidney failure, unspecified; E87.20 Acidosis, unspecified; N20.1 Calculus of ureter; N39.0 Urinary tract infection, site not specified; N31.9 Neuromuscular dysfunction of bladder, unspecified; I12.9 Hypertensive chronic kidney disease with stage 1 through stage 4 chronic kidney disease, or unspecified chronic kidney disease; E11.22 Type 2 diabetes mellitus with diabetic chronic kidney disease; E78.00 Pure hypercholesterolemia, unspecified; E86.0 Dehydration; F03.90 Unspecified dementia, unspecified severity, without behavioral disturbance, psychotic disturbance, mood disturbance, and anxiety; I25.10 Atherosclerotic heart disease of native coronary artery without angina pectoris; N18.9 Chronic kidney disease, unspecified; R74.01 Elevation of levels of liver transaminase levels; E87.6 Hypokalemia; Y84.6 Urinary catheterization as the cause of abnormal reaction of the patient, or of later complication, without mention of misadventure at the time of the procedure; I25.2 Old myocardial infarction; Z11.52 Encounter for screening for COVID-19; Z79.82 Long term (current) use of aspirin; Z79.899 Other long term (current) drug therapy; Z95.1 Presence of aortocoronary bypass graft; Z79.84 Long term (current) use of oral hypoglycemic drugs; Z93.59 Other cystostomy status
CPT/HCPCS: 71046; 74176; 80048; 80053; 81003; 81015; 82962; 83036; 83605; 83735; 85025; 85027; 87040; 87077; 87086; 87149; 87186; 87205; 87811; 96361; 96374; 99285

== ENCOUNTER 2024-11-15 18:44 | Inpatient (IN) | payer OTHER, SELFPAY ==
[2024-11-15 15:05] VITALS: BP 102/66
[2024-11-15 15:39] LABS: % Basophils 0.3 % (0-2); % Eosinophils 0.1 % (0-6); % Immature Granulocytes 0.7 % (0-0.5); % Neutrophils 86.9 % (42.2-75.2); Absolute Basophils 0.1 10^3/uL (0-0.2); Absolute Immature Granulocytes 0.1 10^3/uL (0-0.05); Absolute Lymphocytes 1.4 10^3/uL (1.2-3.4); Absolute Neutrophils 17.2 10^3/uL (1.4-6.5); Hematocrit 40.2 % (39.0-52.0); Hemoglobin 13.7 g/dL (13.0-18.0); Mean Corp Hgb Conc. 34.1 g/dL (33.0-37.0); Mean Corpuscular Hgb 34.3 pg (27.0-31.0); Mean Corpuscular Volume 100.8 fL (80.0-94.0); Mean Platelet Volume 9.7 fL (7.4-10.4); Nucleated Red Blood Cells % 0 % (-); Platelet Count 173 10^3/uL (130-400); Red Blood Cell Count 3.99 10^6/uL (4.70-6.10); Red Cell Dist. Width 14.2 % (11.5-14.5); White Blood Cell Count 19.8 10^3/uL (4.8-10.8)
[2024-11-15 15:45] LABS: ALT (SGPT) 28 U/L (0-50); AST (SGOT) 26 U/L (17-59); Albumin 3.7 g/dl (3.5-5.0); Alkaline Phosphatase 78 U/L (38-126); Blood Urea Nitrogen 18 mg/dl (9-20); Calcium 9.5 mg/dl (8.4-10.2); Carbon Dioxide 31 mmol/L (22-30); Chloride 101 mmol/L (98-107); Glucose 152 mg/dl (70-99); Potassium 4.6 mmol/L (3.5-5.1); Sodium 140 mmol/L (135-145); Total Bilirubin 1.6 mg/dl (0.2-1.3); Total Protein 6.9 g/dl (6.3-8.2); eGFR > 60.00
[2024-11-15 16:03] VITALS: BP 110/62
--- NOTE | 2024-11-15 16:15 | ED.GENMED ---
History of Present Illness
General
Chief Complaint: Change in Mental Status
Source: patient and spouse
Exam Limitations: none
Time Seen by Provider: 11/15/24 15:57
Nursing documentation reviewed up to this point in time: agreed with
History of Present Illness
History of Present Illness:
Patient to ED for eval of weakness and confusion. states symptoms started this AM. Denies fever/chills, recent illness. He had a similar event approx 1 year ago due to UTI. Brought to ED today for eval.
Past History
Past History
ED Past Medical History: CAD, HTN, Hypercholesterolemia, NIDDM, LA and Other (cardiac)
ED Past Surgical History: Cardiac (CABG x 1994)
Social History
Tobacco: Non-smoker
Alcohol: None
Personal: Partner
Living: other
Employment: Retired
Family History
Family History: Other
Review of Systems
Review of Systems
Allergies reviewed?: Yes
All Other Systems: ROS reviewed and negative except as documented in HPI and ROS
Constitutional: Reports fatigue
EENT: Reports no symptoms
Respiratory: Reports no symptoms
Cardiac: Reports no symptoms
ABD/GI: Reports other (Poor appetite today)
: Reports no symptoms
Musculoskeletal: Reports no symptoms
Skin: Reports no symptoms
Neurological: Reports other (confusion)
Psychiatric: Reports no symptoms
Phy Exam
General Physical Exam
General Presentation: no apparent distress
General age: appears stated age
General Skin: warm and dry
General Habitus: normal
General Mental: alert
Cardiovascular Exam
Cardiovascular Exam: regular rate/rhythm and no edema
Pulmonary Exam
Pulmonary Exam: lungs clear and no respiratory distress
Gastrointestinal Exam
Gastrointestinal Exam: normal bowel sounds, non tender, soft, no organomegaly, no pulsatile mass, non distended and no cva tenderness
Musculoskeletal Exam
Musculoskeletal Exam: full ROM and neuro vasc intact
Skin Exam
Skin Exam: normal color, warm/dry and no rash
Psychiatric Exam
Psychiatric Exam: normal mood/affect
Course
Orders/Labs/Results
Orders:
Orders
11/15/24 Breakfast
Regular
At Your Request: Limited Participation
Does patient need a safe tray?: No
11/15/24 15:16
Complete Blood Count/With Diff Urgent
Comprehensive Metabolic Panel Urgent
11/15/24 16:22
Lactic Acid Urgent
Blood Culture Urgent
MAURO Source: Blood/Venous
Specimen Description:
11/15/24 17:36
Urinalysis Reflex To Culture Urgent
Date Specimen was Collected: 11/15/24
Time Specimen was Collected: 17:35
Urine Microscopic Reflex Cult Urgent
Urine Culture Urgent
MAURO Source: U
Specimen Description:
Obtained by: Random
Date Specimen was Collected: 11/15/24
Time Specimen was Collected: 17:35
11/15/24 18:01
0.9% Sodium Chloride 1000 ml [Nss] 1,000 ml IV BOLUS
11/15/24 18:02
Cefepime HCl [Maxipime] 2,000 mg IV NOW STA
11/15/24 18:24
Admit/Transfer Patient As Directed
Co-Sign Provider:
Level of Care: Inpatient admission
Assign to:: Medical/Surgical
Physician / Group: Huong
Diagnosis: CAUTI
Reason for Hospitalization: IV abx
Expected length of stay greater than two midnights?: Yes
ELOS- Estimated Length of Stay in days: 3
I certify the patient meets the requirements for IP care: Yes
11/15/24 18:25
PRN Pain Medication Management As Directed
May give lesser potent ordered pain med per pt: Yes
preference::
Protocol:: Medication orders for pain may be administered in a
manner that supports deferring to patient preference
when the pt is:
- Requesting an ordered lesser potent pain medication.
Least to most potent pain medications are defined
as: acetaminophen < NSAID < tramadol < opioids
(morphine, oxycodone, hydromorphone).
- Requesting a lesser dose of the same medication IF
ORDERED.
- Requesting a less intrusive route of administration
if both routes are prescribed by the provider (PO <
IV).
11/15/24 18:26
Blood Culture Urgent
MAURO Source: Blood/Venous
Specimen Description:
11/15/24 18:27
Code Status As Directed
Resuscitation Status: Do not resuscitate
Reached after discussion with pt or family/Healthcare POA: Yes
DNR Bracelet Application ONCE
11/15/24 20:14
0.9% Sodium Chloride 1000 ml [Nss] 1,000 ml IV 100 mls/hr
Acetaminophen [Tylenol] 650 mg PO Q4HPRN PRN
Dextrose 50%-Water [Dextrose 50% Syringe] 12.5 grams IV [id number] PRN
Glucagon [GlucaGen] 1 mg IM PRN PRN
11/15/24 20:14
UROLOGY CONSULT Routine
Consulting Provider: Nolberto Aguiar
Was physician already notified: Yes
Activity As Directed
Activity Level: Out of Bed- Chair
Bedside Glucose Monitoring As Directed
Frequency: AC&HS
Additional Instructions:: Change to q6h if pt on TPN, tube feeding or not eating
Vital Signs As Directed
Frequency: Per unit guidelines
Weight As Directed
Frequency: Daily
Ot Eval And Treat Routine
Pt Eval And Treat Routine
Activity Level: Out of Bed-Early Mobility
DX Deep Vein Thrombosis Video Routine
11/15/24 21:00
Memantine HCl [Namenda] 10 mg PO BID
Metoprolol [Lopressor] 50 mg PO BID
11/15/24 22:00
Donepezil HCl [Aricept] 20 mg PO HS
11/16/24 02:00
Cefepime HCl [Maxipime] 1,000 mg IV Q8H
11/16/24 06:00
Basic Metabolic Panel IN AM
Complete Blood Count/No Diff IN AM
Glycohemoglobin (HgbA1c) IN AM
11/16/24 07:30
Insulin Aspart Corrective Low [Novolog Flexpen-Low Resistance] See Protocol SC AC
11/16/24 08:00
Aspirin Low Dose EC [Aspir Low (Enteric Coated)] 81 mg PO DAILY
Ezetimibe [Zetia] 10 mg PO DAILY
Rosuvastatin Calcium [Crestor] 40 mg PO DAILY
Tamsulosin [Flomax] 0.4 mg PO DAILY
11/16/24 18:00
Enoxaparin Sodium [Lovenox] 40 mg SC QPM
Abnormal Lab Results
11/15/24 11/15/24
15:16 17:36
WBC 19.8 H 10^3/uL
(4.8-10.8)
RBC 3.99 L 10^6/uL
(4.70-6.10)
MCV 100.8 H fL
(80.0-94.0)
MCH 34.3 H pg
(27.0-31.0)
Abs Immat Gran (auto) 0.1 H 10^3/uL
(0-0.05)
Absolute Neuts (auto) 17.2 H 10^3/uL
(1.4-6.5)
Absolute Monos (auto) 1.0 H 10^3/uL
(0.1-0.6)
Immature Gran % 0.7 H %
(0-0.5)
Neutrophils % 86.9 H %
(42.2-75.2)
Lymphocytes % 7.0 L %
(20.5-51.1)
Carbon Dioxide 31 H mmol/L
(22-30)
Glucose 152 H mg/dl
(70-99)
Total Bilirubin 1.6 H mg/dl
(0.2-1.3)
Ur Occult Blood Reflex 4+ A
(Negative)
Urine Nitrite (Reflex) Positive A
(Negative)
Urine Bilirubin 1+ A
(Negative)
Urine Urobilinogen 2+ A
(Neg - 1+)
Leukocyte Esterase Rfl 3+ A
(Negative)
Urine RBC 70-80 A /HPF
(0-2)
Urine WBC (Reflex) 30-40 A /HPF
(0-5)
Urine Bacteria (Reflex) Many A
(Negative)
Urine Albumin (Reflex) 3+ A
(Neg - Trace)
11/15/24 15:16
11/15/24 15:16
Vital Signs
Initial and Last Documented VS:
Initial Vital Signs
Temp Pulse Resp BP Pulse Ox
99.2 F 86 16 102/66 97
11/15/24 15:05 11/15/24 15:05 11/15/24 15:05 11/15/24 15:05 11/15/24 15:05
Last Documented Vital Signs
Temp Pulse Resp BP Pulse Ox
101.1 F H 80 20 142/70 98
11/15/24 20:15 11/15/24 21:37 11/15/24 20:15 11/15/24 21:37 11/15/24 20:15
*Pulse Oximetry
Patient hypoxic: no
*Critical Care Note
Total Time (30-74mins, 75-104mins- exclusive of procedures): Not Applicable
Update Note
Update Note:
Patient to ED for eval of confusion and weakness. Afebrile. Labs reviewed. WBC 19, lactic normal. UA reflecting UTI. Cefipime and IVF started in ED. Will admit to hospitalists service.
ED Attending Note
-
Portions of this chart may have been created with voice recognition software.� Occasional wrong word or��sound alike� substitutions may have occurred due to the inherent limitations of voice recognition software.
Discharge Plan
Departure
Patient Disposition: Admit
Date of Disposition: 11/15/24
Time of Disposition: 18:04
Presentation/result/management discussed w/ accepting MD/DO: Hospitalist
Condition: Fair
Covid-19: Not Applicable
Discharge Problem:
Acute UTI (urinary tract infection), Weakness
Interventions
Interventions:
*Risk Screen - Suicide Last Done: 11/15/24 16:10
*General Assessment Last Done: 11/15/24 16:10
*Neglect/Abuse Screening Last Done: 11/15/24 16:10
*ED- Fall Risk Assessment Last Done: 11/15/24 16:10
*ED COVID-19 Vaccine History Last Done: 11/15/24 16:10
*Nursing Disposition Last Done: 11/15/24 20:15
ED- Cardiac Assessment Last Done: 11/15/24 16:10
ED- Neurological Assessment Last Done: 11/15/24 16:10
ED- Pulmonary Assessment Last Done: 11/15/24 16:10
ED Swallowing Screen Last Done: 11/15/24 16:10
Discharge Date and Time
Discharge Date/Time: 11/15/24 20:15
[2024-11-15 16:43] LABS: Lactic Acid 1.8 mmol/L (0.7-2.0)
[2024-11-15 17:00] VITALS: BP 106/63
[2024-11-15 17:41] LABS: Urine Albumin 3+ (Neg - Trace); Urine Bilirubin 1+ (Negative); Urine Character Cloudy (Clear); Urine Color Red; Urine Glucose Negative (Negative); Urine Ketone Negative (Negative); Urine Leukocyte 3+ (Negative); Urine Nitrite Positive (Negative); Urine Occult Blood 4+ (Negative); Urine Specific Gravity 1.015 (<1.030); Urine Urobilinogen 2+ (Neg - 1+)
[2024-11-15 17:48] LABS: Urine Red Blood Cell 70-80 /HPF (0-2); Urine White Cell 30-40 /HPF (0-5)
[2024-11-15 17:49] LABS: Urine Bacteria Many (Negative)
[2024-11-15 18:01] VITALS: BP 119/64
[2024-11-15] MEDS: NSS 1000 IV ×2 (18:08→21:36)
--- NOTE | 2024-11-15 18:08 | HPS.HSE ---
Family Physician
-
Family Physician: Mauricio Cook
Chief Complaint
-
Weakness
History of Present Illness
Patient is an 84 y/o male past medical history CAD, HTN, DM, diabetes and neurogenic bladder with suprapubic catheter who presents with weakness. Additional history obtained from patient's spouce at bedside. Patient usually ambulates unassisted but
today had to be lifted from bed to a wheelchair which is not his baseline. Patient's suprapubic catheter is usually changed every 5 weeks, but missed his appointment in the office last. There are no reports of fevers.
Medical History
Past Medical History
Past Medical History: Reports Other
Additional Past Medical History:
Neurogenic Bladder s/p Suprapubic Catheter
Dementia
Diabetes Mellitus, Type II
Coronary Artery Disease s/p CABG
Essential Hypertension
Hyperlipidemia
Past Surgical History: Reports Other
Additional Past Surgical History:
Coronary Artery Bypass Graft
Cataracts
Social History
Tobacco: Non-smoker
Personal:
Living: With Family
Family History
Family History: Not pertinent
Allergies / Home Medications
Allergies reflects when Allergies were last updated in [facility].
Home Medications with original date entered in [facility]
Allergy/Medication List:
Allergies
Allergy/AdvReac Type Severity Reaction Status Date / Time
No Known Allergies Allergy Verified 11/15/24 15:08
Home Medications
donepezil 10 mg tablet 20 mg PO HS memory 12/08/20
ezetimibe 10 mg tablet 10 mg PO DAILY High cholesterol 12/08/20
rosuvastatin 40 mg tablet (Crestor) 40 mg PO DAILY High cholesterol 12/08/20
memantine 10 mg tablet 10 mg PO BID memory 05/13/21
metformin 500 mg tablet 500 mg PO BID Diabetes 05/13/21
Folic Acid 667 Dfe Folate 1 tab PO DAILY Supplement 06/23/23
aspirin 81 mg tablet,delayed release 81 mg PO DAILY Blood Clot Prevention/Tx 06/23/23
cyanocobalamin (vitamin B-12) 1,000 mcg tablet 1,000 mcg PO DAILY Supplement 06/23/23
metoprolol tartrate 50 mg tablet 50 mg PO BID Blood Pressure 06/23/23
therapeutic multivitamin 1 tab PO DAILY Supplement 06/23/23
tamsulosin 0.4 mg capsule 0.4 mg PO DAILY 30 days #30 caps 05/21/24
Review of Systems
-
Unable to obtain full review of systems at this time due to: Dementia
Constitutional: Reports Fever
Physical Exam
Vital Signs
Vital Signs
Temp Pulse Resp BP Pulse Ox
99.2 F 84 27 119/64 97
11/15/24 15:05 11/15/24 18:01 11/15/24 18:01 11/15/24 18:01 11/15/24 18:06
Physical Exam
General: Comfortable and Appears Chronically Ill
HEENT: Anicteric and Moist mucous membranes
Respiratory: Clear and Non Labored Respirations
Cardiac: S1/S2 and Regular Rhythm
GI: Soft and Non Tender
Rectal: Deferred by Provider
Genito-urinary: Suprapubic Tube
Skin: Warm and Dry
Neuro: Awake, Alert, Oriented and Nonfocal/grossly intact
Psych: Calm
Laboratory Results
-
11/15/24 15:16
11/15/24 15:16
Laboratory Results
Lactic Acid 1.8 mmol/L (0.7-2.0) 11/15/24 16:22
Total Bilirubin 1.6 mg/dl (0.2-1.3) H 11/15/24 15:16
AST 26 U/L (17-59) 11/15/24 15:16
ALT 28 U/L (0-50) 11/15/24 15:16
Alkaline Phosphatase 78 U/L (38-126) 11/15/24 15:16
Data Reviewed
-
Lab Data: Labs Reviewed by me
Old Records: Reviewed
Impression/Plan
-
Catheter-Associated Urinary Tract Infection
-Continue Cefepime
-Await urine and blood cultures
Neurogenic Bladder s/p Suprapubic Catheter
-Consult Urology to exchange suprapubic tube
Dementia
-Monitor for mood/behavior changes during hospitalization
-Continue donepezil and memantine
Diabetes Mellitus, Type II
-Hold metformin
-Monitor sugars and continue coverage insulin
Coronary Artery Disease s/p CABG
-Continue aspirin
Essential Hypertension
-Continue metoprolol
Hyperlipidemia
-Continue ezetimibe and rosuvastatin
DVT proph: Lovenox
Code Status: DNR per patient and confirmed with patent's spouse at bedside
[2024-11-15] MEDS: MAXIPIME 2000 MG IV (18:09)
--- NOTE | 2024-11-15 18:23 | W.PN.UPDATE ---
Update Note
Progress Note Update
This is an addendum to H&P written by Stephanie Tom on 11/15/2024.� Patient seen and examined independently with PA.
84-year-old male past medical history of neurogenic bladder with suprapubic catheter, complicated UTI with E. coli bacteremia, nephrolithiasis, CAD status post CABG, hypertension, hypercholesteremia, diabetes, dementia, presenting for weakness and
confusion.
Vital signs normal.� Labs show leukocytosis.
Urinalysis shows 30-40 WBC, positive nitrates, +3 leukocyte esterase.
Presentation consistent with catheter associated UTI.
Urine culture, blood cultures pending.� IV fluids.� Cefepime.� Urology consulted to exchange suprapubic catheter.
--- NOTE | 2024-11-15 18:53 | PHANOTE ---
Med tech note: patient is not able to give a med rec. I called his partner and left a message for him to call back.
--- NOTE | 2024-11-15 19:29 | EDRN ---
Report received, patient is resting at this time waiting for bed to be clean, call danielle in reach
[2024-11-15 20:15] VITALS: BP 142/70; BMI 20.5
[2024-11-15 21:23] LABS: Glucose - Point of Care 134 mg/dl (70-99)
[2024-11-15] MEDS: NAMENDA 10 MG PO (21:37)
[2024-11-15] MEDS: LOPRESSOR 50 MG PO (21:37)
[2024-11-15] MEDS: ARICEPT 20 MG PO (21:37)
[2024-11-15] MEDS: TYLENOL 650 MG PO (21:38)
--- NOTE | 2024-11-15 22:52 | PTCARENOTE ---
Receive pt from ER. Pt confused, oriented to name only. Pt pulled over to bed. Pt oriented to the room, call danielle within reach, bed alarm in place. Pt denies chills, SOB, or pain. Suprapubic catheter present draining a yellow/cloudy urine. Pt's
Scun=877.1, Tylenol given. BW=873/70, SpO2=96% on RA. IVFs infusing as per order. Will continue to monitor the pt.
[2024-11-15 23:37] VITALS: BP 107/52
[2024-11-16] MEDS: STERILE WATER FOR INJECTION 10 ML IV ×3 (01:03→17:27)
[2024-11-16] MEDS: MAXIPIME 1000 MG IV ×2 (01:03→10:11)
[2024-11-16 06:00] VITALS: BMI 20.7
[2024-11-16 06:02] LABS: Hematocrit 32.8 % (39.0-52.0); Hemoglobin 11.1 g/dL (13.0-18.0); Mean Corp Hgb Conc. 33.8 g/dL (33.0-37.0); Mean Corpuscular Volume 100.6 fL (80.0-94.0); Mean Platelet Volume 9.3 fL (7.4-10.4); Platelet Count 121 10^3/uL (130-400); Red Blood Cell Count 3.26 10^6/uL (4.70-6.10); Red Cell Dist. Width 14.4 % (11.5-14.5); White Blood Cell Count 14.4 10^3/uL (4.8-10.8)
[2024-11-16 06:15] LABS: Blood Urea Nitrogen 19 mg/dl (9-20); Calcium 8.5 mg/dl (8.4-10.2); Carbon Dioxide 27 mmol/L (22-30); Chloride 107 mmol/L (98-107); Estimated Creatinine Clearance 45 ml/min; Glucose 107 mg/dl (70-99); Potassium 4.2 mmol/L (3.5-5.1); Sodium 140 mmol/L (135-145); eGFR > 60.00
[2024-11-16 07:20] VITALS: BP 124/51
[2024-11-16 08:07] LABS: Glucose - Point of Care 124 mg/dl (70-99)
[2024-11-16] MEDS: NOVOLOG FLEXPEN-LOW RESISTANCE SC (10:07)
[2024-11-16] MEDS: CRESTOR 40 MG PO (10:11)
[2024-11-16] MEDS: ZETIA 10 MG PO (10:11)
[2024-11-16] MEDS: FLOMAX 0.4 MG PO (10:12)
[2024-11-16] MEDS: NAMENDA 10 MG PO ×2 (10:12→20:51)
[2024-11-16] MEDS: LOPRESSOR PO (10:12)
[2024-11-16] MEDS: ASPIR LOW (ENTERIC COATED) 81 MG PO (10:12)
--- NOTE | 2024-11-16 11:32 | W.PN.UPDATE ---
Update Note
Progress Note Update
Urology consulted to change suprapubic tube
22[address] SPT exchanged without difficulty
Please reach out with any additional questions
[2024-11-16 11:37] LABS: Glycohemoglobin (HgbA1c) 5.6 % (4.0-5.6)
--- NOTE | 2024-11-16 11:47 | W.PN.HOSP.TC ---
Addendum entered and electronically signed by Anastasia Woodard MD 11/16/24 13:41:
Sepsis 2/2 UTI - fever and leukocytosis
-afebrile overnight, wBC improving
continue antibiotics as below
Original Note:
Today's Communication/Plan
-
IV Ceftriaxone
f/U urine cultures
Assessment / Plan
Assessment / Plan
Catheter-Associated Urinary Tract Infection
-Continue abx - narrow to IV Ceftriaxone based on prior culture data
-Await urine and blood cultures
-PT/OT
Neurogenic Bladder s/p Suprapubic Catheter
-Consult Urology to exchange suprapubic tube
Dementia
-Monitor for mood/behavior changes during hospitalization
-Continue donepezil and memantine
Diabetes Mellitus, Type II
-Hold metformin
-Monitor sugars and continue coverage insulin
Coronary Artery Disease s/p CABG
-Continue aspirin
Essential Hypertension
-Continue metoprolol
Hyperlipidemia
-Continue ezetimibe and rosuvastatin
DVT proph: Lovenox
Code Status: DNR per patient and confirmed with patent's spouse at bedside
Anticipated Discharge: 24 - 48 hours
Subjective/Interval History
-
Date of Service: November 16, 2024
feeling better today
s/p catheter exchange
Objective Data
-
Labs:
Laboratory Results
11/16/24
05:32
WBC 14.4 H
Hgb 11.1 L
Hct 32.8 L
Plt Count 121 L D
Sodium 140
Potassium 4.2
Chloride 107
Carbon Dioxide 27
BUN 19
Creatinine 1.0
Glucose 107 H
Calcium 8.5
Vital Signs:
Vital Signs
Temp Pulse Resp BP Pulse Ox
97.3 F 56 16 124/57 98
11/16/24 07:20 11/16/24 10:12 11/16/24 07:20 11/16/24 10:12 11/16/24 07:20
I&O
11/15/24 11/16/24 11/17/24
06:59 06:59 06:59
Intake Total 800 / 800
Output Total 875 / 875
Balance -75 / -75
Review of Systems
-
History Source: Patient
All other systems: Reviewed and negative
Physical Exam
-
General: No Apparent Distress
HEENT: Moist Mucous Membranes
Respiratory: Clear to Auscultation
Cardiac: Regular Rhythm and S1/S2
GI: Soft, Nontender, Nondistended and Normal Bowel Sounds
Genito-urinary: Supra Pubic Tube
Neuro: AO x 3
Psych: Calm; Negative Confused or Agitated
Data Reviewed
-
Diagnostic Radiology: Report Reviewed by me
Labs: Labs Reviewed by me
--- NOTE | 2024-11-16 11:52 | CM ---
CM following re: discharge planning.
Reviewed pt's chart, met with pt.
Pt is an 84 year old male, admitted with primary dx of Catheter-Associated Urinary Tract Infection.
Pt reports he lives alone in an apartment 2nd floor with elevator, has no family, has supportive friend. Pt described himself as independent in all areas [employer]. No DME, VN or SNF history.
PCP: Mauricio Cook
[facility]: [facility]
D/C plan: home with anticipated no needs.
CM will follow with discharge plan updates as hospitalization progresses
[2024-11-16 12:08] LABS: Glucose - Point of Care 160 mg/dl (70-99)
[2024-11-16] MEDS: NOVOLOG FLEXPEN-LOW RESISTANCE 1 UNITS SC (13:38)
[2024-11-16 14:50] VITALS: BP 113/52; PULSE 69; O2SAT 97
[2024-11-16 15:15] VITALS: BP 99/45
[2024-11-16 15:53] VITALS: BP 113/52; PULSE 69; O2SAT 97
[2024-11-16 16:48] LABS: Glucose - Point of Care 214 mg/dl (70-99)
[2024-11-16] MEDS: LOVENOX 40 MG SC (17:24)
[2024-11-16] MEDS: ROCEPHIN 1000 MG IV (17:25)
[2024-11-16] MEDS: NOVOLOG FLEXPEN-LOW RESISTANCE 2 UNITS SC (17:30)
[2024-11-16 19:51] VITALS: BP 146/84
[2024-11-16] MEDS: LOPRESSOR 50 MG PO (20:51)
[2024-11-16 21:15] LABS: Glucose - Point of Care 260 mg/dl (70-99)
[2024-11-16] MEDS: ARICEPT 20 MG PO (22:12)
[2024-11-16 23:44] VITALS: BP 117/48
[2024-11-17 06:00] VITALS: BMI 20.8
[2024-11-17 06:40] LABS: % Basophils 0.4 % (0-2); % Eosinophils 2.9 % (0-6); % Immature Granulocytes 0.3 % (0-0.5); % Lymphocytes 23.3 % (20.5-51.1); % Neutrophils 66.1 % (42.2-75.2); Absolute Eosinophils 0.2 10^3/uL (0-0.7); Absolute Lymphocytes 1.6 10^3/uL (1.2-3.4); Absolute Monocytes 0.5 10^3/uL (0.1-0.6); Absolute Neutrophils 4.5 10^3/uL (1.4-6.5); Hematocrit 31.5 % (39.0-52.0); Hemoglobin 11.1 g/dL (13.0-18.0); Mean Corp Hgb Conc. 35.2 g/dL (33.0-37.0); Mean Corpuscular Hgb 34.2 pg (27.0-31.0); Mean Corpuscular Volume 96.9 fL (80.0-94.0); Mean Platelet Volume 9.2 fL (7.4-10.4); Nucleated Red Blood Cells % 0 % (-); Platelet Count 118 10^3/uL (130-400); Red Blood Cell Count 3.25 10^6/uL (4.70-6.10); Red Cell Dist. Width 14.2 % (11.5-14.5); White Blood Cell Count 6.8 10^3/uL (4.8-10.8)
[2024-11-17 07:09] LABS: Blood Urea Nitrogen 19 mg/dl (9-20); Calcium 8.6 mg/dl (8.4-10.2); Carbon Dioxide 24 mmol/L (22-30); Chloride 107 mmol/L (98-107); Estimated Creatinine Clearance 50 ml/min; Glucose 148 mg/dl (70-99); Magnesium 2.1 mg/dl (1.6-2.3); Potassium 4.2 mmol/L (3.5-5.1); Sodium 138 mmol/L (135-145); eGFR > 60.00
[2024-11-17 07:23] VITALS: BP 105/48
[2024-11-17 08:10] LABS: Glucose - Point of Care 147 mg/dl (70-99)
[2024-11-17] MEDS: NOVOLOG FLEXPEN-LOW RESISTANCE SC (09:36)
[2024-11-17] MEDS: LOPRESSOR PO ×2 (09:36→21:21)
[2024-11-17] MEDS: ZETIA 10 MG PO (09:38)
[2024-11-17] MEDS: FLOMAX 0.4 MG PO (09:38)
[2024-11-17] MEDS: CRESTOR 40 MG PO (09:38)
[2024-11-17] MEDS: NAMENDA 10 MG PO ×2 (09:38→21:21)
[2024-11-17] MEDS: ASPIR LOW (ENTERIC COATED) 81 MG PO (09:38)
[2024-11-17 11:59] LABS: Glucose - Point of Care 153 mg/dl (70-99)
[2024-11-17] MEDS: NOVOLOG FLEXPEN-LOW RESISTANCE 1 UNITS SC ×2 (12:00→17:23)
--- NOTE | 2024-11-17 14:32 | W.PN.HOSP.TC ---
Addendum entered and electronically signed by Michael Payan, 11/17/24 15:10:
__x__- Sepsis was present on admission and is now resolved
Original Note:
Today's Communication/Plan
-
Assessment / Plan
Assessment / Plan
General: No Apparent Distress, Comfortable and Conversant
HEENT: NormoCephalic, Moist mucous membranes, Atraumatic
Respiratory: Clear and Non Labored Respirations
Cardiac: S1/S2 and Regular Rhythm; No Rub or Gallop
GI: Soft, Non Tender, Non Distended and Normal Bowel Sounds
Musculoskeletal: No Edema, no deformity
: Suprapubic catheter in place
Neuro: Awake, Alert, Nonfocal/grossly intact
Psych: Calm and cooperative
Catheter-Associated Urinary Tract Infection
-Continue abx - narrowed to IV Ceftriaxone based on prior culture data
- Cultures negative to date
-PT/OT recommending home therapy
Neurogenic Bladder s/p Suprapubic Catheter
- Suprapubic catheter exchanged by urology on 11/16
Dementia
-Monitor for mood/behavior changes during hospitalization
-Continue donepezil and memantine
Diabetes Mellitus, Type II
-Hold metformin
-Monitor sugars and continue coverage insulin
Coronary Artery Disease s/p CABG
-Continue aspirin
Essential Hypertension
-Continue metoprolol
Hyperlipidemia
-Continue ezetimibe and rosuvastatin
DVT proph: Lovenox
Code Status: DNR
Anticipated Discharge: 24 - 48 hours
Subjective/Interval History
-
Date of Service: November 17, 2024
Patient was seen and examined at bedside this morning. He is status post exchange of his suprapubic catheter. Remains on ceftriaxone. PT recommending home health.
Objective Data
-
Labs:
Laboratory Results
11/17/24
06:24
WBC 6.8
Hgb 11.1 L
Hct 31.5 L
Plt Count 118 L
Sodium 138
Potassium 4.2
Chloride 107
Carbon Dioxide 24
BUN 19
Creatinine 0.9
Glucose 148 H
Calcium 8.6
Vital Signs:
Vital Signs
Temp Pulse Resp BP Pulse Ox
98.2 F 62 16 105/48 100
11/17/24 07:23 11/17/24 09:36 11/17/24 07:23 11/17/24 09:36 11/17/24 07:23
I&O
11/16/24 11/17/24 11/18/24
06:59 06:59 06:59
Intake Total 800 / 800 660 / 660
Output Total 875 / 875 900 / 900
Balance -75 / -75 -240 / -240
Review of Systems
-
History Source: Patient
All other systems: Reviewed and negative
Physical Exam
-
General: No Apparent Distress
--- NOTE | 2024-11-17 14:50 | PN.CDI ---
CDI
- -
CDI:
Physician Documentation Request
Admit Date: 11/15/24 18:44
Dear Doctor Ora,
Please review the following and provide your response in the progress notes.
Clinical Indicators:
The diagnosis of sepsis was documented on 11/16 PN but is not consistently noted in subsequent documentation.
- 11/16 PN 'Sepsis 2/2 UTI - fever and leukocytosis'
- 11/17 PN 'Catheter-Associated Urinary Tract Infection'
- Admission: WBC 19.8, TMax 101.1
- IV abx ceftriaxone
- 2L IVF
Please clarify the following:
____ - Sepsis was present on admission and is now resolved
____ - Sepsis was ruled out
____ - Other
Use of terms such as suspected, likely, concern for, or probable (associated with a specific diagnosis that is being evaluated, monitored, or treated as if it exists) are acceptable and can be coded in the inpatient setting, when documented at the
time of discharge.
Thank you,
Yanet Escobar RN
CDI Specialist
Please use your independent medical judgment in providing your response.
[2024-11-17 15:16] VITALS: BP 108/53
[2024-11-17 16:59] LABS: Glucose - Point of Care 196 mg/dl (70-99)
[2024-11-17] MEDS: LOVENOX 40 MG SC (17:21)
[2024-11-17] MEDS: STERILE WATER FOR INJECTION 10 ML IV (17:22)
[2024-11-17] MEDS: ROCEPHIN 1000 MG IV (17:22)
[2024-11-17] MEDS: ARICEPT 20 MG PO (21:21)
[2024-11-17] MEDS: LOPRESSOR 50 MG PO (21:37)
[2024-11-17 21:48] LABS: Glucose - Point of Care 225 mg/dl (70-99)
[2024-11-17 23:48] VITALS: BP 123/63
[2024-11-18 06:00] VITALS: BMI 20.4
[2024-11-18 08:07] VITALS: BP 95/58
[2024-11-18 08:20] LABS: Glucose - Point of Care 135 mg/dl (70-99)
[2024-11-18] MEDS: NOVOLOG FLEXPEN-LOW RESISTANCE SC (08:24)
[2024-11-18] MEDS: CRESTOR 40 MG PO (09:38)
[2024-11-18] MEDS: ASPIR LOW (ENTERIC COATED) 81 MG PO (09:39)
[2024-11-18] MEDS: LOPRESSOR PO (09:39)
[2024-11-18] MEDS: NAMENDA 10 MG PO (09:39)
[2024-11-18] MEDS: ZETIA 10 MG PO (09:39)
[2024-11-18] MEDS: FLOMAX 0.4 MG PO (09:39)
[2024-11-18] MEDS: NSS 250 IV (09:43)
[2024-11-18] MEDS: GLUCOPHAGE 500 MG PO (09:43)
[2024-11-18 10:31] VITALS: BP 133/57
[2024-11-18 12:06] LABS: Glucose - Point of Care 298 mg/dl (70-99)
[2024-11-18] MEDS: NOVOLOG FLEXPEN-LOW RESISTANCE 3 UNITS SC (12:19)
--- NOTE | 2024-11-18 12:38 | CM ---
Addendum entered by BETH Lee 11/18/24 13:30:
IMM reviewed with patient's partner who expressed understanding and voiced no concerns about discharge.
Addendum entered by BETH Lee 11/18/24 13:18:
Spoke with attending who stated that patient is medically cleared for discharge. Placed a call to patient's spouse who stated that he can pick patient up and support him at home. He stated that he wants [facility]. Attending will put in order. Referral
sent to liason.
Original Note:
Reviewed therapy notes. Indication is for home health as patient not quite at his baseline.
Plan: Case management will continue to follow and assist with discharge planning. Home with VN services.
--- NOTE | 2024-11-18 13:08 | W.DCSUMMARY ---
Discharge Summary
Discharge Data
Date of Admission: 11/15/24
Date of Discharge: 11/18/24
-
Pending Results: No
Hospital Course
Mr. Benoit is a 84-year-old male with a medical history of CAD, hypertension, kmy-iuztqde-vehgacyvd diabetes mellitus, dementia, and neurogenic bladder (suprapubic catheter in place) who presented with weakness. He had a significant leukocytosis,
was tachypneic, and febrile with a temperature of 101.1 �F upon arrival. His UA showed significant pyuria and bacteriuria. He was given IV fluids and started on antibiotics. His suprapubic catheter was exchanged by urology on 11/16. He made
significant clinical improvement after being started on antibiotics. His leukocytosis resolved and he remained afebrile since his initial fever at time of admission. He was evaluated by PT/OT who recommended home therapy after hospital discharge.
He will be discharged to home with with antibiotics to complete a total 7-day course. He will need to follow-up closely with his primary care physician.
General: No Apparent Distress, Comfortable and Conversant
HEENT: NormoCephalic, Moist mucous membranes, Atraumatic
Respiratory: Clear and Non Labored Respirations
Cardiac: S1/S2 and Regular Rhythm; No Rub or Gallop
GI: Soft, Non Tender, Non Distended and Normal Bowel Sounds
Musculoskeletal: No Edema, no deformity
: Suprapubic catheter in place
Neuro: Awake, Alert, Nonfocal/grossly intact
Psych: Calm and cooperative
Discharge Plan
-
Patient Disposition: Home with Home Care
Discharge Diagnosis/Procedures: Sepsis secondary to UTI associated with suprapubic catheter
Diet: Regular
Activity: With assistance and As tolerated
Activity Restrictions/Additional Instructions:
Mr. Benoit is a 84-year-old male with a medical history of CAD, hypertension, ecr-kmuekfy-nftequfhm diabetes mellitus, dementia, and neurogenic bladder (suprapubic catheter in place) who presented with weakness. He had a significant leukocytosis,
was tachypneic, and febrile with a temperature of 101.1 �F upon arrival. His UA showed significant pyuria and bacteriuria. He was given IV fluids and started on antibiotics. His suprapubic catheter was exchanged by urology on 11/16. He made
significant clinical improvement after being started on antibiotics. His leukocytosis resolved and he remained afebrile since his initial fever at time of admission. He was evaluated by PT/OT who recommended home therapy after hospital discharge.
He will be discharged to home with with antibiotics to complete a total 7-day course. He will need to follow-up closely with his primary care physician.
Referrals:
Mauricio Cook MD [Family Provider] -
Prescriptions:
New
phenazopyridine [Pyridium] 100 mg tablet
100 mg PO TID PRN (Reason: dysuria) Qty: 10 0RF
amoxicillin-pot clavulanate [Augmentin] 500-125 mg tablet
1 tab PO BID 5 Days Qty: 10 0RF
Continued
donepezil 10 MG tablet
20 mg PO HS
ezetimibe 10 MG tablet
10 mg PO DAILY
rosuvastatin [Crestor] 40 MG tablet
40 mg PO DAILY
memantine 10 MG tablet
10 mg PO BID
metformin 500 MG tablet
500 mg PO BID
metoprolol tartrate 50 mg Tablet
50 mg PO BID
cyanocobalamin (vitamin B-12) 1,000 mcg Tablet
1,000 mcg PO DAILY
therapeutic multivitamin Tablet
1 tab PO DAILY
aspirin 81 mg Tablet,Delayed Release (Dr/Ec)
81 mg PO DAILY
Folic Acid 667 Dfe Folate
1 tab PO DAILY
tamsulosin 0.4 mg Capsule
0.4 mg PO DAILY 30 Days Qty: 30 0RF
Discharge Orders:
Discharge Patient (As Directed); Ordered 11/18/24
Ordered By: Michael Payan
Discharge Date and Time
Print Language: ARABIC
--- NOTE | 2024-11-18 14:00 | VNURNOTE ---
Home Health Liaison attempted to meet with patient at bedside - he was dozing. [facility] liaison called patient's partner, Italo to discuss [facility] nurse/therapy, visits, schedule and homebound status. Partner is familiar with [facility] services, patient last
had us in July. Italo is agreeable and understands that visits at home will be 2-3 x per week to assess and teach medical management. He is aware that [facility] will contact them for start of care in 1-2 days after discharge from .
[facility] referral completed in [facility].
== END 2024-11-18 15:45 | disposition home health service (06) | DRG 698 ==
LOC: 4 EAST ACU 18:44
PROVIDERS: Nurse Practitioner; Physician Assistant Medical; Student in an Organized Health Care Education/Training Program; ADMITTING PHYSICIAN Hospitalist; ATTENDING PHYSICIAN Internal Medicine; EMERGENCY PHYSICIAN Emergency Medicine; FAMILY PHYSICIAN Family Medicine
DX: T83.510A Infection and inflammatory reaction due to cystostomy catheter, initial encounter (principal); A41.9 Sepsis, unspecified organism; N39.0 Urinary tract infection, site not specified; Y84.6 Urinary catheterization as the cause of abnormal reaction of the patient, or of later complication, without mention of misadventure at the time of the procedure; N31.9 Neuromuscular dysfunction of bladder, unspecified; F03.90 Unspecified dementia, unspecified severity, without behavioral disturbance, psychotic disturbance, mood disturbance, and anxiety; E11.36 Type 2 diabetes mellitus with diabetic cataract; I25.10 Atherosclerotic heart disease of native coronary artery without angina pectoris; I10 Essential (primary) hypertension; E78.00 Pure hypercholesterolemia, unspecified; Z66 Do not resuscitate; Z95.1 Presence of aortocoronary bypass graft
CPT/HCPCS: 80048; 80053; 81003; 81015; 82962; 83036; 83605; 83735; 85025; 85027; 87040; 87086; 96374; 97116; 97163; 97166; 99284

== ENCOUNTER → 2025-04-07 13:36 | Outpatient (REF) | payer OTHER, SELFPAY | LOC: RAD 13:36 | PROVIDERS: ATTENDING PHYSICIAN Specialist; FAMILY PHYSICIAN Family Medicine | DX: G30.1 Alzheimer's disease with late onset (principal) | CPT/HCPCS: 70450 ==

== ENCOUNTER 2025-04-07 14:48 | Emergency (ER) | payer OTHER, SELFPAY ==
[2025-04-07 14:53] VITALS: BP 126/60
[2025-04-07 15:02] VITALS: BP 140/65
[2025-04-07 15:27] LABS: Hematocrit 43.1 % (39.0-52.0); Hemoglobin 14.6 g/dL (13.0-18.0); Mean Corp Hgb Conc. 33.9 g/dL (33.0-37.0); Mean Corpuscular Volume 103.1 fL (80.0-94.0); Nucleated Red Blood Cells % 0 % (-); Platelet Count 175 10^3/uL (130-400); Red Cell Dist. Width 14.1 % (11.5-14.5)
[2025-04-07 15:33] LABS: ALT (SGPT) 51 U/L (0-50); AST (SGOT) 37 U/L (17-59); Albumin 4.3 g/dl (3.5-5.0); Alkaline Phosphatase 58 U/L (38-126); Blood Urea Nitrogen 22 mg/dl (9-20); Calcium 10.2 mg/dl (8.4-10.2); Carbon Dioxide 34 mmol/L (22-30); Chloride 106 mmol/L (98-107); Estimated Creatinine Clearance 36 ml/min; Glucose 124 mg/dl (70-99); Potassium 4.7 mmol/L (3.5-5.1); Sodium 145 mmol/L (135-145); Total Protein 7.5 g/dl (6.3-8.2); eGFR 54.17
[2025-04-07 15:34] LABS: INR 1.01; PT 13.6 Sec (11.4-14.6)
[2025-04-07 15:35] LABS: APTT 26.6 Sec (23.4-35.0)
[2025-04-07 15:46] VITALS: BP 131/59
--- NOTE | 2025-04-07 15:57 | ED.GENMED ---
History of Present Illness
General
Chief Complaint: Abnormal Lab Value
Source: patient
Exam Limitations: none
Time Seen by Provider: 04/07/25 15:06
History of Present Illness
History of Present Illness:
84-year-old male presents in referral from outpatient CT scan. He has a history of dementia. He is accompanied by his . 3 weeks ago, he saw a neurologist as an outpatient for follow-up routinely. They felt that he had not had a CT scan in
some time so they ordered an CT scan which was done today. Per the , the patient has been at his baseline without any changes. No recent falls. CT today demonstrated a subdural hematoma with acute component of bleeding on the left side
that is 5 mm thick. There is a questionable 2 mm shift. I sent him here for evaluation. He is on a baby aspirin. Patient denies headache. No chest pain or shortness of breath. No other complaints
Past History
Past History
ED Past Medical History: CAD, HTN, Hypercholesterolemia, NIDDM, [place] and Other (cardiac)
ED Past Surgical History: Cardiac (CABG x 2 1994)
Social History
Tobacco: Non-smoker
Alcohol: None
Personal: Partner
Living: other
Employment: Retired
Family History
Family History: Other
Phy Exam
Physical Exam
Physical Exam:
General: Well-appearing male no acute respiratory distress
HEENT: Normal cephalic
Heart: Regular rate and rhythm
Lungs: Clear
Neurologic exam: Alert and oriented x 2. No facial asymmetry no drift on exam finger-nose [id number] intact. Good strength and sensation to the upper and lower extremities. No dysarthria or aphasia pupils equal round reactive to light
Course
Orders/Labs/Results
Orders:
Orders
04/07/25 15:07
Electrocardiogram (*1) Urgent
Reason for Study: Other
Other Reason for Exam: Possible Stroke
04/07/25 15:08
EKG- Treatment ONCE
04/07/25 15:09
Type And Crossmatch [Type+Screen] Urgent
Complete Blood Count/With Diff Urgent
Comprehensive Metabolic Panel Urgent
PTT Urgent
Prothrombin Time Urgent
Abnormal Lab Results
04/07/25
15:09
RBC 4.18 L 10^6/uL
(4.70-6.10)
MCV 103.1 H fL
(80.0-94.0)
MCH 34.9 H pg
(27.0-31.0)
Carbon Dioxide 34 H mmol/L
(22-30)
BUN 22 H mg/dl
(9-20)
Glucose 124 H mg/dl
(70-99)
ALT 51 H U/L
(0-50)
04/07/25 15:09
04/07/25 15:09
Vital Signs
Initial and Last Documented VS:
Initial Vital Signs
Temp Pulse Resp BP Pulse Ox
98.2 F 54 15 126/60 100
04/07/25 14:53 04/07/25 14:53 04/07/25 14:53 04/07/25 14:53 04/07/25 14:53
Last Documented Vital Signs
Temp Pulse Resp BP Pulse Ox
98.2 F 51 16 140/65 100
04/07/25 14:53 04/07/25 15:12 04/07/25 15:12 04/07/25 15:02 04/07/25 15:02
MDM/Problems Addressed
Differential Diagnosis Includes:
Patient here for evaluation of subdural hematoma with acute component of bleeding. Patient has neurologic baseline. No recent fall. Reviewed the CT. I sent the video of the CT to neurosurgery. Recommendation from neurosurgery was to stop baby
aspirin and follow-up as an outpatient in the office without any further intervention needed. Patient and agreeable to the plan. Stable for discharge with return precautions
*Pulse Oximetry
SaO2: 100
Oxygen Mode of Delivery: Room air
Patient hypoxic: no
*Critical Care Note
Total Time (30-74mins, 75-104mins- exclusive of procedures): Not Applicable
ED Attending Note
-
Portions of this chart may have been created with voice recognition software.� Occasional wrong word or��sound alike� substitutions may have occurred due to the inherent limitations of voice recognition software.
Discharge Plan
Departure
Patient Disposition: Home (Routine Discharge)
Date of Disposition: 04/07/25
Time of Disposition: 16:08
Patient with high blood pressure during this ER visit?: No
Discharge Problem:
Subdural hematoma
Instructions: Subdural hematoma or epidural hematoma (DC)
Prescriptions:
No Action
donepezil 10 MG tablet
20 mg PO HS
ezetimibe 10 MG tablet
10 mg PO DAILY
memantine 10 MG tablet
10 mg PO BID
metformin 500 MG tablet
500 mg PO DAILY
metoprolol tartrate 50 mg Tablet
50 mg PO BID
cyanocobalamin (vitamin B-12) 1,000 mcg Tablet
1,000 mcg PO DAILY
therapeutic multivitamin Tablet
1 tab PO DAILY
aspirin 81 mg Tablet,Delayed Release (Dr/Ec)
81 mg PO DAILY
Folic Acid 667 Dfe Folate
1 tab PO DAILY
rosuvastatin 40 mg tablet
40 mg PO DAILY
Referrals:
Pramod Zamora DO [Active, Neurosurgery]
Activity Restrictions/Additional Instructions:
Please stop aspirin. Please return here for any change in neurologic status, headache vision change or discoordination or other concerning findings. Follow-up with neurosurgery otherwise
Interventions
Interventions:
*Risk Screen - Suicide Last Done: 04/07/25 14:53
*General Assessment Last Done: 04/07/25 14:53
*Neglect/Abuse Screening Last Done: 04/07/25 14:53
*ED- Fall Risk Assessment Last Done: 04/07/25 15:12
*ED COVID-19 Vaccine History Last Done: 04/07/25 15:12
Discharge Date and Time
Print Language: FRENCH
== END 2025-04-07 16:37 | disposition home or self-care (01) ==
LOC: EMR 14:48
PROVIDERS: Physician Assistant; EMERGENCY PHYSICIAN Emergency Medicine; FAMILY PHYSICIAN Family Medicine
DX: S06.5XAA Traumatic subdural hemorrhage with loss of consciousness status unknown, initial encounter (principal); X58.XXXA Exposure to other specified factors, initial encounter; F03.90 Unspecified dementia, unspecified severity, without behavioral disturbance, psychotic disturbance, mood disturbance, and anxiety; I25.10 Atherosclerotic heart disease of native coronary artery without angina pectoris; I10 Essential (primary) hypertension; E78.00 Pure hypercholesterolemia, unspecified; Z95.1 Presence of aortocoronary bypass graft; Z79.82 Long term (current) use of aspirin; E11.9 Type 2 diabetes mellitus without complications
CPT/HCPCS: 99284; 80053; 85025; 85610; 85730; 86850; 86900; 86901; 93005

== ENCOUNTER → 2025-05-04 14:21 | Outpatient (REF) | payer OTHER, SELFPAY | LOC: HWRAD 14:21 | PROVIDERS: ATTENDING PHYSICIAN Physician Assistant; FAMILY PHYSICIAN Family Medicine; REFERRING PHYSICIAN Specialist | DX: G30.1 Alzheimer's disease with late onset (principal) | CPT/HCPCS: 70450 ==

== ENCOUNTER 2025-05-15 16:59 | Inpatient (IN) | payer OTHER, SELFPAY ==
[2025-05-15 10:16] VITALS: BP 126/73
--- NOTE | 2025-05-15 13:15 | ED.GENMED ---
History of Present Illness
<Kwasi Parrish MD, Resident - Last Filed: 05/15/25 15:47>
General
Chief Complaint: Rectal Bleeding
Source: patient and spouse
Exam Limitations: none
Time Seen by Provider: 05/15/25 11:28
History of Present Illness
History of Present Illness:
84-year-old male with a past medical history of dementia and subdural hemorrhage who was found by his at home to have woken up yesterday morning with drops of blood on the sheets. From then, he had severe constant pain in his rectal area
for the rest of the day which got progressively worse today morning and then admitted to ER. Also has increasing pain in his suprapubic area as well. He has a straight catheter in place. Pain associated with frequent tenesmus and chills. No fever,
constipation, no diarrhea, no hemorrhoids, no weight loss, numbness, tingling, incontinence, weakness, no history of radiation.
Past History
<Wallace Olivares, DO - Last Filed: >
Past History
ED Past Medical History: CAD, HTN, Hypercholesterolemia, NIDDM, [place] and Other (cardiac)
ED Past Surgical History: Cardiac (CABG x 2 1994)
Social History
Tobacco: Non-smoker
Alcohol: None
Personal: Partner
Living: other
Employment: Retired
Family History
Family History: Other
Review of Systems
<Kwasi Parrish MD, Resident - Last Filed: 05/15/25 15:47>
Review of Systems
All Other Systems: ROS reviewed and negative except as documented in HPI and ROS
Phy Exam
<Kwasi Parrish MD, Resident - Last Filed: 05/15/25 15:47>
General Physical Exam
General Presentation: well appearing
General Skin: warm
General Habitus: normal
General Mental: alert
Cardiovascular Exam
Cardiovascular Exam: regular rate/rhythm
Pulmonary Exam
Pulmonary Exam: lungs clear and no respiratory distress
Gastrointestinal Exam
Gastrointestinal Exam: normal bowel sounds, soft, non distended, tender (severe suprapubic tenderness to palpation) and other (inspection of rectum shows no tears, bleeding, discharge, fissures. Palpation of rectum shows no masses or tenderness.
FOBT is negative. )
Neurological Exam
Neurological Exam: alert
Sepsis
<Kwasi Parrish MD, Resident - Last Filed: 05/15/25 15:47>
Sepsis Screening
Sepsis Assessment: Sepsis Ruled Out
Sepsis Screen
Sepsis Screen: Sepsis Ruled Out
Date: 05/15/25
Time: 15:47
<Wallace Olivares, DO - Last Filed: >
Sepsis Screen
Sepsis Screen: Possible Sepsis
Date: 05/15/25
Time: 13:15
Course
<Kwasi Parrish MD, Resident - Last Filed: 05/15/25 15:47>
Orders/Labs/Results
Orders:
Orders
05/15/25 13:49
Type And Crossmatch [Type+Screen] Urgent
CBC/With Diff [Complete Blood Count/With Diff] Urgent
CMP [Comprehensive Metabolic Panel] Urgent
PTT Urgent
Prothrombin Time Urgent
05/15/25 14:52
Urinalysis Reflex To Culture Urgent
Date Specimen was Collected: 05/15/25
Time Specimen was Collected: 14:52
Urine Microscopic Reflex Cult Urgent
Urine Culture Urgent
MAURO Source: U
Specimen Description:
Obtained by: Random
Date Specimen was Collected: 05/15/25
Time Specimen was Collected: 14:52
05/15/25 15:23
CT Abd/pelvis Wo Iv Cont Urgent
Comment:
Reason For Exam: suprapubic pain
Abnormal Lab Results
05/15/25 05/15/25
13:49 14:52
WBC 17.8 H 10^3/uL
(4.8-10.8)
RBC 4.58 L 10^6/uL
(4.70-6.10)
MCV 103.3 H fL
(80.0-94.0)
MCH 33.8 H pg
(27.0-31.0)
MCHC 32.8 L g/dL
(33.0-37.0)
Abs Immat Gran (auto) 0.1 H 10^3/uL
(0-0.05)
Absolute Neuts (auto) 14.4 H 10^3/uL
(1.4-6.5)
Absolute Monos (auto) 1.3 H 10^3/uL
(0.1-0.6)
Neutrophils % 80.7 H %
(42.2-75.2)
Lymphocytes % 11.2 L %
(20.5-51.1)
PT 15.5 H Sec
(11.4-14.6)
Potassium 5.6 H mmol/L
(3.5-5.1)
Carbon Dioxide 20 L mmol/L
(22-30)
BUN 34 H mg/dl
(9-20)
Creatinine 2.7 H mg/dL
(0.7-1.3)
Glucose 324 H mg/dl
(70-99)
ALT 55 H U/L
(0-50)
Ur Occult Blood Reflex 4+ A
(Negative)
Leukocyte Esterase Rfl 3+ A
(Negative)
Urine RBC 26-30 A /HPF
(0-2)
Urine WBC (Reflex) >100 A /HPF
(0-5)
Urine Bacteria (Reflex) Moderate A
(Negative)
Urine Albumin (Reflex) 4+ A
(Neg - Trace)
05/15/25 13:49
05/15/25 13:49
Vital Signs
Initial and Last Documented VS:
Initial Vital Signs
Pulse Resp BP Pulse Ox
95 16 126/73 99
05/15/25 10:16 05/15/25 10:16 05/15/25 10:16 05/15/25 10:16
Last Documented Vital Signs
Pulse Resp BP Pulse Ox
95 16 138/83 98
05/15/25 10:16 05/15/25 10:16 05/15/25 14:00 05/15/25 14:15
<Michael Oconnell, DO - Last Filed: 05/15/25 14:10>
Orders/Labs/Results
Orders:
Orders
05/15/25 13:49
Type And Crossmatch [Type+Screen] Urgent
CBC/With Diff [Complete Blood Count/With Diff] Urgent
CMP [Comprehensive Metabolic Panel] Urgent
PTT Urgent
Prothrombin Time Urgent
05/15/25 14:52
Urinalysis Reflex To Culture Urgent
Date Specimen was Collected: 05/15/25
Time Specimen was Collected: 14:52
Urine Microscopic Reflex Cult Urgent
Urine Culture Urgent
MAURO Source: U
Specimen Description:
Obtained by: Random
Date Specimen was Collected: 05/15/25
Time Specimen was Collected: 14:52
05/15/25 15:23
CT Abd/pelvis Wo Iv Cont Urgent
Comment:
Reason For Exam: suprapubic pain
Abnormal Lab Results
05/15/25 05/15/25
13:49 14:52
WBC 17.8 H 10^3/uL
(4.8-10.8)
RBC 4.58 L 10^6/uL
(4.70-6.10)
MCV 103.3 H fL
(80.0-94.0)
MCH 33.8 H pg
(27.0-31.0)
MCHC 32.8 L g/dL
(33.0-37.0)
Abs Immat Gran (auto) 0.1 H 10^3/uL
(0-0.05)
Absolute Neuts (auto) 14.4 H 10^3/uL
(1.4-6.5)
Absolute Monos (auto) 1.3 H 10^3/uL
(0.1-0.6)
Neutrophils % 80.7 H %
(42.2-75.2)
Lymphocytes % 11.2 L %
(20.5-51.1)
PT 15.5 H Sec
(11.4-14.6)
Potassium 5.6 H mmol/L
(3.5-5.1)
Carbon Dioxide 20 L mmol/L
(22-30)
BUN 34 H mg/dl
(9-20)
Creatinine 2.7 H mg/dL
(0.7-1.3)
Glucose 324 H mg/dl
(70-99)
ALT 55 H U/L
(0-50)
Ur Occult Blood Reflex 4+ A
(Negative)
Leukocyte Esterase Rfl 3+ A
(Negative)
Urine RBC 26-30 A /HPF
(0-2)
Urine WBC (Reflex) >100 A /HPF
(0-5)
Urine Bacteria (Reflex) Moderate A
(Negative)
Urine Albumin (Reflex) 4+ A
(Neg - Trace)
05/15/25 13:49
05/15/25 13:49
Vital Signs
Initial and Last Documented VS:
Initial Vital Signs
Pulse Resp BP Pulse Ox
95 16 126/73 99
05/15/25 10:16 05/15/25 10:16 05/15/25 10:16 05/15/25 10:16
Last Documented Vital Signs
Pulse Resp BP Pulse Ox
95 16 138/83 98
05/15/25 10:16 05/15/25 10:16 05/15/25 14:00 05/15/25 14:15
<Wallace Olivares, DO - Last Filed: >
Orders/Labs/Results
Orders:
Orders
05/15/25 13:49
Type And Crossmatch [Type+Screen] Urgent
CBC/With Diff [Complete Blood Count/With Diff] Urgent
CMP [Comprehensive Metabolic Panel] Urgent
PTT Urgent
Prothrombin Time Urgent
05/15/25 14:52
Urinalysis Reflex To Culture Urgent
Date Specimen was Collected: 05/15/25
Time Specimen was Collected: 14:52
Urine Microscopic Reflex Cult Urgent
Urine Culture Urgent
MAURO Source: U
Specimen Description:
Obtained by: Random
Date Specimen was Collected: 05/15/25
Time Specimen was Collected: 14:52
05/15/25 15:23
CT Abd/pelvis Wo Iv Cont Urgent
Comment:
Reason For Exam: suprapubic pain
Abnormal Lab Results
05/15/25 05/15/25
13:49 14:52
WBC 17.8 H 10^3/uL
(4.8-10.8)
RBC 4.58 L 10^6/uL
(4.70-6.10)
MCV 103.3 H fL
(80.0-94.0)
MCH 33.8 H pg
(27.0-31.0)
MCHC 32.8 L g/dL
(33.0-37.0)
Abs Immat Gran (auto) 0.1 H 10^3/uL
(0-0.05)
Absolute Neuts (auto) 14.4 H 10^3/uL
(1.4-6.5)
Absolute Monos (auto) 1.3 H 10^3/uL
(0.1-0.6)
Neutrophils % 80.7 H %
(42.2-75.2)
Lymphocytes % 11.2 L %
(20.5-51.1)
PT 15.5 H Sec
(11.4-14.6)
Potassium 5.6 H mmol/L
(3.5-5.1)
Carbon Dioxide 20 L mmol/L
(22-30)
BUN 34 H mg/dl
(9-20)
Creatinine 2.7 H mg/dL
(0.7-1.3)
Glucose 324 H mg/dl
(70-99)
ALT 55 H U/L
(0-50)
Ur Occult Blood Reflex 4+ A
(Negative)
Leukocyte Esterase Rfl 3+ A
(Negative)
Urine RBC 26-30 A /HPF
(0-2)
Urine WBC (Reflex) >100 A /HPF
(0-5)
Urine Bacteria (Reflex) Moderate A
(Negative)
Urine Albumin (Reflex) 4+ A
(Neg - Trace)
05/15/25 13:49
05/15/25 13:49
Vital Signs
Initial and Last Documented VS:
Initial Vital Signs
Pulse Resp BP Pulse Ox
95 16 126/73 99
05/15/25 10:16 05/15/25 10:16 05/15/25 10:16 05/15/25 10:16
Last Documented Vital Signs
Pulse Resp BP Pulse Ox
95 16 138/83 98
05/15/25 10:16 05/15/25 10:16 05/15/25 14:00 05/15/25 14:15
<Kwasi Parrish MD, Resident - Last Filed: 05/15/25 15:47>
MDM/Problems Addressed
Differential Diagnosis Includes:
hemorrhoids, anal fissure, proctitis, urinary tract infection, cystitis, kidney stones, ureteral stones, pyelonephritis
MDM/Problems Addressed:
- CBC: WBC of 17.8, hgb normal,
- CMP: potassium 5.6, creatinine 2.7 ( baseline is 1.1 to 1.3), glucose 324
- UA: urine occult blood 4+, leucocyte esterase 3+, urine rbc 26-30, urine wbc more than 100
- PT/PTT: PT increased at 15.5
- Abdomen pelvis: pending
- Patient does not want pain medication at this time
Will admit to hospitalist team for ARINA.
<Kwasi Parrish MD, Resident - Last Filed: 05/15/25 15:47>
*Pulse Oximetry
Patient hypoxic: no
*Critical Care Note
Total Time (30-74mins, 75-104mins- exclusive of procedures): Not Applicable
<Wallace Olivares, DO - Last Filed: >
*Pulse Oximetry
SaO2: 99
ED Attending Note
<Michael Oconnell, DO - Last Filed: 05/15/25 14:10>
ED Attending Note
Patient seen and examined by attending physician: Yes
I performed a history and physical exam of patient and discussed management with resident, I reviewed resident's note and agree with documented findings and plan of care.: Yes
ED Attending Note:
I have seen and evaluated the patient with a [id number] encounter. I have spoken to the resident and involved in the medical history, the physical exam, medical decision making.
Evaluation and management service: agree unless noted differently below.
Results interpretation: agree unless noted differently below.
Focused HPI: 84-year-old male presenting for evaluation of abdominal and rectal pain. Spouse at bedside noted that there was drops of blood on the sheets presumably from his rectum
Physical exam: Sitting bed comfortably. Rectal exam brown and guaiac negative. No fissure noted. Mild suprapubic tenderness noted
Medical Decision Making: Given the pain and the bleeding, will obtain CT abdomen/pelvis.
<Wallace Olivares DO - Last Filed: >
-
Portions of this chart may have been created with voice recognition software.� Occasional wrong word or��sound alike� substitutions may have occurred due to the inherent limitations of voice recognition software.
Discharge Plan
Departure
Patient Disposition: Admit
Date of Disposition: 05/15/25
Time of Disposition: 15:45
Presentation/result/management discussed w/ accepting MD/DO: Hospitalist
Condition: Fair
Discharge Problem:
ARINA (acute kidney injury)
Prescriptions:
No Action
donepezil 10 MG tablet
20 mg PO HS
ezetimibe 10 MG tablet
10 mg PO DAILY
memantine 10 MG tablet
10 mg PO BID
metformin 500 MG tablet
500 mg PO DAILY
metoprolol tartrate 50 mg Tablet
50 mg PO BID
cyanocobalamin (vitamin B-12) 1,000 mcg Tablet
1,000 mcg PO DAILY
therapeutic multivitamin Tablet
1 tab PO DAILY
aspirin 81 mg Tablet,Delayed Release (Dr/Ec)
81 mg PO DAILY
Folic Acid 667 Dfe Folate
1 tab PO DAILY
rosuvastatin 40 mg tablet
40 mg PO DAILY
Referrals:
Mauricio Cook MD [Family Provider, Family Practice]
Interventions
Interventions:
*Risk Screen - Suicide Last Done: 05/15/25 14:47
*General Assessment Last Done: 05/15/25 14:47
*Neglect/Abuse Screening Last Done: 05/15/25 14:47
*ED- Fall Risk Assessment Last Done: 05/15/25 14:47
*ED COVID-19 Vaccine History Last Done: 05/15/25 14:47
*ED Influenza Vaccine History Last Done: 05/15/25 14:47
UG-Egyjwv-Yrsnvdasuz Assessment Last Done: 05/15/25 14:47
ED- Cardiac Assessment Last Done: 05/15/25 14:47
ED- Pulmonary Assessment Last Done: 05/15/25 14:47
ED-Skin Assessment Last Done: 05/15/25 14:47
Discharge Date and Time
Print Language: CITIZ[place]
[2025-05-15 14:00] VITALS: BP 138/83; BMI 23.1
[2025-05-15 14:11] LABS: Hematocrit 47.3 % (39.0-52.0); Hemoglobin 15.5 g/dL (13.0-18.0); Mean Corp Hgb Conc. 32.8 g/dL (33.0-37.0); Mean Corpuscular Volume 103.3 fL (80.0-94.0); Nucleated Red Blood Cells % 0 % (-); Platelet Count 190 10^3/uL (130-400); Red Cell Dist. Width 14.2 % (11.5-14.5)
[2025-05-15 14:18] LABS: INR 1.20; PT 15.5 Sec (11.4-14.6)
[2025-05-15 14:19] LABS: APTT 25.9 Sec (23.4-35.0)
[2025-05-15 14:37] LABS: AST (SGOT) 40 U/L (17-59); Albumin 4.4 g/dl (3.5-5.0); Alkaline Phosphatase 65 U/L (38-126); Blood Urea Nitrogen 34 mg/dl (9-20); Calcium 10.0 mg/dl (8.4-10.2); Carbon Dioxide 20 mmol/L (22-30); Chloride 105 mmol/L (98-107); Estimated Creatinine Clearance 18 ml/min; Glucose 324 mg/dl (70-99); Potassium 5.6 mmol/L (3.5-5.1); Sodium 143 mmol/L (135-145); Total Protein 7.3 g/dl (6.3-8.2); eGFR 22.53
[2025-05-15 14:47] LABS: ALT (SGPT) 55 U/L (0-50)
[2025-05-15 15:02] LABS: Urine Character Cloudy (Clear)
[2025-05-15 15:08] LABS: Urine Squamous Cell 0-2 /LPF (Few)
[2025-05-15 15:09] LABS: Urine Red Blood Cell 26-30 /HPF (0-2); Urine White Cell >100 /HPF (0-5)
--- NOTE | 2025-05-15 16:01 | HPS.HSE ---
Addendum entered and electronically signed by Cindy Borja MD 05/15/25 17:38:
This is an addendum to H&P written by Ora Lewis on 05/15/2025. �Patient seen and examined independently with MEDIA SALES REPRESENTATIVE.
84-year-old male past medical history of neurogenic bladder with suprapubic catheter, complicated UTI with E. coli bacteremia, nephrolithiasis, prior subdural hemorrhage, CAD status post CABG, hypertension, hypercholesteremia, diabetes, dementia,
presenting with drops of blood on the sheets and constant severe rectal pain. �Also pain in the suprapubic area. �Has chills. �No fever. �He had a very large pasty bowel movement yesterday.
Vital signs normal. �Rectal exam unremarkable. �Fecal occult negative.
Labs show creatinine of 2.7. �Calcium 5.6. �Blood sugar 324. �Leukocytosis 17.
Urinalysis shows greater than 100 WBC, +[address] abdomen pelvis shows moderate bilateral hydroureteronephrosis. �Send urinary bladder, small calcification in the urinary bladder near the tip of the suprapubic catheter concerning for obstruction of the suprapubic catheter drainage. �Urinary
bladder wall thickening and fat stranding. �Bilateral nephrolithiasis. �Mild distention of the rectum mild circumferential rectal wall thickening suggesting for stercoral colitis.
Patient with acute cystitis. �Check urine culture. �Start cefepime. �Also concern for ARINA and hyperkalemia secondary to obstructive uropathy/bilateral hydroureteronephrosis concerning for obstruction of the suprapubic catheter. �IV fluids. �Urology
consulted to exchange suprapubic catheter.
Patient with stercoral colitis and minor drops of bleeding from constipation. �Likely he had overflow incontinence yesterday. �Start MiraLAX and senna and give enema.
Hyperglycemia secondary to infection. �Check A1c and insulin sliding scale.
Original Note:
Family Physician
-
Family Physician: Mauricio Cook
Chief Complaint
-
Rectal pain, suprapubic tenderness near catheter
History of Present Illness
84-year-old male who was per woke up yesterday morning with drops of blood on the sheet due to picking at rectum. Since then he had constant pain in his rectal area for the rest of the day which got progressively worse this morning he has
also had increasing pain in his suprapubic area with chills where his suprapubic catheter is in place due to history of neurogenic bladder. This has been states the suprapubic catheter was changed May [address] Hoang. Since yesterday he has
only eaten once had 20 ounces of juice and 1 cup of coffee this morning denied history of fever, headache, constipation, diarrhea, chest pain, cough, shortness of breath.
He has past medical history neurogenic bladder history suprapubic catheter, UTI, with E. coli, Klebsiella oxytoca 05/18/2024, CAD/CABG, HTN, HLD, DM 2, dementia
Medical History
Past Medical History
Past Medical History: Reports Other
Additional Past Medical History:
Neurogenic Bladder s/p Suprapubic Catheter
Dementia
Diabetes Mellitus, Type II
Coronary Artery Disease s/p CABG
Essential Hypertension
Hyperlipidemia
Past Surgical History: Reports Other
Additional Past Surgical History:
Coronary Artery Bypass Graft
Cataracts
Social History
Tobacco: Non-smoker
Alcohol: Daily (1 to 2 glasses of wine)
Personal:
Living: With Family ()
Employment: Retired
Family History
Family History: Not pertinent
Allergies / Home Medications
Allergies reflects when Allergies were last updated in [facility].
Home Medications with original date entered in [facility]
Allergy/Medication List:
Allergies
Allergy/AdvReac Type Severity Reaction Status Date / Time
No Known Allergies Allergy Verified 05/15/25 10:16
Home Medications
donepezil 10 mg tablet 20 mg PO HS memory 12/08/20
ezetimibe 10 mg tablet 10 mg PO DAILY High cholesterol 12/08/20
memantine 10 mg tablet 10 mg PO BID memory 05/13/21
metformin 500 mg tablet 500 mg PO DAILY Diabetes 05/13/21
Folic Acid 667 Dfe Folate 1 tab PO DAILY Supplement 06/23/23
cyanocobalamin (vitamin B-12) 1,000 mcg tablet 1,000 mcg PO DAILY Supplement 06/23/23
metoprolol tartrate 50 mg tablet 50 mg PO BID Blood Pressure 06/23/23
therapeutic multivitamin 1 tab PO DAILY Supplement 06/23/23
rosuvastatin 40 mg tablet 40 mg PO DAILY High Cholesterol 04/07/25
Review of Systems
-
History Source: Patient and Family (Spoke with via phone)
Constitutional: Reports Chills; Denies Fever
EENT: Denies Sore Throat
Respiratory: Denies Cough or Trouble Breathing
Cardiac: Denies Chest Pain, Diaphoresis, Palpitations or Syncope
Abdomen/GI: Reports Abdominal Pain (Suprapubic); Denies Nausea, Vomiting, Diarrhea or Constipated
: Reports Suprapubic Tube (Draining scant amount yellow)
Musculoskeletal: Denies Joint Pain or Muscle Pain
Skin: Denies Itching or Rash
Neurological: Denies Dizzy, Headache or Weakness
Endocrine: Reports No Symptoms
Hematologic/Lymphatic: Reports No Symptoms
Psych: Reports Calm
Physical Exam
Vital Signs
Vital Signs
Pulse Resp BP Pulse Ox
95 16 138/83 98
05/15/25 10:16 05/15/25 10:16 05/15/25 14:00 05/15/25 14:15
Physical Exam
General: Conversant, Pain and Chills; No Fever
HEENT: NormoCephalic, Anicteric, PERRLA, [place] Conjunctivae, No Ptosis and Other (Dry oral mucosa)
Respiratory: Clear; No Wheezes, Rales or Rhonchi
Cardiac: S1/S2 and Regular Rhythm; No Murmur, Rub, Gallop or Peripheral Edema
Breast: Deferred by me
GI: Soft, Normal Bowel Sounds and Tender (Suprapubic area around suprapubic catheter)
Genito-urinary: Suprapubic Tube
Musculoskeletal: No Clubbing, No Cyanosis and No Edema
Skin: Warm and Dry; No Rash
Neuro: Awake, Alert, Oriented (To name, place but not year, president, history due to his history of dementia), No Motor Deficits, Nonfocal/grossly intact, Cranial Nerves Intact and No Sensory Deficits; No Slurred Speech, Facial Droop, Tremors or
Sedated
Psych: Calm
Laboratory Results
-
05/15/25 13:49
05/15/25 13:49
Laboratory Results
PT 15.5 Sec (11.4-14.6) H 05/15/25 13:49
INR 1.20 05/15/25 13:49
APTT 25.9 Sec (23.4-35.0) 05/15/25 13:49
Total Bilirubin 1.1 mg/dl (0.2-1.3) 05/15/25 13:49
AST 40 U/L (17-59) 05/15/25 13:49
ALT 55 U/L (0-50) H 05/15/25 13:49
Alkaline Phosphatase 65 U/L (38-126) 05/15/25 13:49
Impression/Plan
-
Impression/plan:
Admit to [facility]
#Sepsis 2/2 symptomatic UTI from clogged suprapubic catheter
#History of neurogenic bladder with chronic suprapubic tube
#History E. coli, Klebsiella oxytoca 05/18/2024
Recent suprapubic catheter changed on 05/08/[address] Hoang
WBC 17.8 with left shift, HR 95, 138/83
- Positive pyuria
-follow urine culture, blood cultures x 2
- IV cefepime
- Consult urology for suprapubic catheter change given clogged
CT abdomen pelvis:Moderate bilateral hydroureteronephrosis. Distended urinary bladder.
Small calcification in the urinary bladder near the tip of the suprapubic catheter, concerning for obstruction of
the suprapubic catheter drainage.
Urinary bladder wall thickening and fat stranding. Recommend correlation with a urinalysis.
Bilateral nephrolithiasis.
Mild stool distention of the rectum and mild circumferential rectal wall thickening suggesting for stercoral colitis.
#ARINA secondary to clogged suprapubic catheter/moderate bilateral hydroureteronephrosis/distended bladder
Creat 2.7/bun 34
Urology to change suprapubic catheter
-IV NSS 100 cc an hour
-Follow BMP and urine output
#Stercoral colitis
-Enema
-Start MiraLAX, Senokot
#Acute hyperkalemia secondary to ARINA
K5.6
IV NSS
Follow BMP
#DM2 with hyperglycemia
Blood sugar 324 check HgbA1c
-Accu-Cheks with SSI
- NovoLog 5 units now
#History subdural hematoma 04/07/2025
#Dementia
Oriented to name, place but not year, president, history
- Continue Namenda, donepezil
#Alcohol use
Drinks 1 to 2 glasses of wine a day per
#CAD/CABG times 09/17/1994
Continue metoprolol 50 mg twice daily with hold parameters, Crestor, Zetia
#HTN
BP 138/83
Continue metoprolol 50 mg twice daily with hold parameters
HLD
Continue Crestor and Zetia
DVT prophylaxis
Subcu heparin
DNR
[2025-05-15 16:48] VITALS: BP 134/78
--- NOTE | 2025-05-15 17:14 | EDRN ---
urology Dr Gamez at the pts bedside removed the existing clogged suprapubic hair catheter. Dr Gamez placed a new 22 ic[place] suprapubic hair catheter and performed manual bladder irrigation at this time. Per Dr Gamez verbal order, a urine culture
was obtained from the pts new suprapubic hair catheter and sent to the lab.
measured urine output - 700ml. the pts urine is cloudy with sediment and foul smelling
[2025-05-15 17:18] LABS: Magnesium 2.2 mg/dl (1.6-2.3)
[2025-05-15 17:29] LABS: Glucose - Point of Care 206 mg/dl (70-99)
[2025-05-15] MEDS: NSS 1000 IV (17:36)
[2025-05-15] MEDS: MAXIPIME 1000 MG IV (17:48)
[2025-05-15] MEDS: STERILE WATER FOR INJECTION 10 ML IV (17:48)
--- NOTE | 2025-05-15 18:16 | CON.MD ---
Consultation - Medical
-
pt with longstanding sp tube
managed by dr verdugo
occ UTI
changed about one week ago in office
pt admitted with increasing confusion/rectal bleeding and abd pain
ct showed distended bladder with hydro
cath would not irrigate
replaced at bedside with 22 [place] non-latex- 1.5 liters of purulent/foul smelling urine returned- cath irrigated to clear
suspect malfunction sp tube with bladder distention causing hydro
now with functioning cath
medical support/ucx /antibx/trend cr level
will follow
Consultation
-
Date/Time Consultation Requested: 05/15/25 at 4:30pm
Date/Time Consultation Performed: 05/15/25 at 5pm
Requesting Provider: ER
Performing Provider: Dr Gamez
Reason for Consultation: Urinary Retention
[2025-05-15 18:44] VITALS: BP 99/68
[2025-05-15 21:23] LABS: Glucose - Point of Care 214 mg/dl (70-99)
[2025-05-15] MEDS: ARICEPT 20 MG PO (21:51)
[2025-05-15] MEDS: HEPARIN 5000 UNITS SC (21:51)
[2025-05-15] MEDS: SENOKOT-S 1 TABLET PO (21:51)
[2025-05-15] MEDS: LOPRESSOR PO (21:55)
[2025-05-15] MEDS: NAMENDA 10 MG PO (22:01)
[2025-05-15 23:00] VITALS: BP 127/62
[2025-05-16] MEDS: NSS 1000 IV ×2 (04:03→17:34)
[2025-05-16 07:19] LABS: Hematocrit 39.5 % (39.0-52.0); Hemoglobin 13.3 g/dL (13.0-18.0); Mean Corp Hgb Conc. 33.7 g/dL (33.0-37.0); Mean Corpuscular Volume 100.0 fL (80.0-94.0); Platelet Count 147 10^3/uL (130-400); Red Cell Dist. Width 14.1 % (11.5-14.5)
[2025-05-16 07:40] LABS: ALT (SGPT) 41 U/L (0-50); AST (SGOT) 33 U/L (17-59); Albumin 3.2 g/dl (3.5-5.0); Alkaline Phosphatase 58 U/L (38-126); Blood Urea Nitrogen 44 mg/dl (9-20); Calcium 9.4 mg/dl (8.4-10.2); Carbon Dioxide 23 mmol/L (22-30); Chloride 113 mmol/L (98-107); Estimated Creatinine Clearance 28 ml/min; Glucose 177 mg/dl (70-99); Nucleated Red Blood Cells % 0 % (-); Potassium 4.7 mmol/L (3.5-5.1); Sodium 142 mmol/L (135-145); Total Protein 6.1 g/dl (6.3-8.2); eGFR 36.66
[2025-05-16 07:45] VITALS: BP 107/60
[2025-05-16 07:55] LABS: Glucose - Point of Care 173 mg/dl (70-99)
--- NOTE | 2025-05-16 08:31 | W.PN.URO.CBU ---
Today's Communication / Plan
-
continue sp tube and medical support
Assessment / Plan
-
chronic NGB with sp tube
sp tube obstruction with resultant UTI and reflux hydro/JULIANN
sp tube functional and draining
cr downtrending
continue hydration antibx pending cx results
Diagnosis
-
Date of Service: May 16, 2025
-
Patient Diagnosis:
neurogenic bladder with sp tube
admitted with sp tube obstruction/bladder distention/hydro and UTI and elevated cr
sp tube exchanged 05/15
Subjective
-
pt asleep
good UO- clearing
cr downtrending
cx's pending
Objective
-
Vital Signs
Temp Pulse Resp BP Pulse Ox
97.6 F 84 19 107/60 98
05/16/25 07:45 05/16/25 07:45 05/16/25 07:45 05/16/25 07:45 05/16/25 07:45
Intake and Output
05/15/25 05/16/25 05/17/25
06:59 06:59 06:59
Output Total 700 / 700
Balance -700 / -700
Output:
Suprapubic output 700 / 700
Laboratory Results
05/16/25 06:51
05/16/25 06:51
Review of Systems
-
Unable to obtain full review of systems at this time due to: Dementia
Physical Exam
-
General - no acute distress
Abdomen - soft, non-tender, sp tube in place
Genitalia - normal
[2025-05-16] MEDS: HEPARIN 5000 UNITS SC ×2 (09:05→21:48)
[2025-05-16] MEDS: SENOKOT-S 1 TABLET PO ×2 (09:06→21:47)
[2025-05-16] MEDS: ZETIA 10 MG PO (09:06)
[2025-05-16] MEDS: VITAMIN B-12 1000 MCG PO (09:06)
[2025-05-16] MEDS: THERAGRAN 1 TABLET PO (09:06)
[2025-05-16] MEDS: CRESTOR 40 MG PO (09:07)
[2025-05-16] MEDS: MIRALAX 17 GRAMS PO (09:10)
[2025-05-16 09:27] VITALS: BP 115/60; PULSE 86
[2025-05-16] MEDS: NOVOLOG FLEXPEN-LOW RESISTANCE 1 UNITS SC ×3 (09:29→17:37)
[2025-05-16] MEDS: NAMENDA 10 MG PO ×2 (09:38→21:48)
[2025-05-16] MEDS: LOPRESSOR 50 MG PO ×2 (09:38→21:48)
[2025-05-16 10:32] LABS: Glycohemoglobin (HgbA1c) 6.2 % (4.0-5.6)
--- NOTE | 2025-05-16 10:33 | W.PN.HOSP.TC ---
Today's Communication/Plan
-
Repeat blood culture
Continue with IV cefepime
Follow up BMP
Assessment / Plan
Assessment / Plan
#Sepsis 2/2 symptomatic UTI from clogged suprapubic catheter
# Complicated UTI with Proteus bacteremia
#History of neurogenic bladder with chronic suprapubic tube
#History E. coli, Klebsiella oxytoca 05/18/2024
Recent suprapubic catheter changed on 05/08/[address] Hoang
-Continue with IV cefepime
- S/p change of suprapubic catheter by urology on admission
- Afebrile and hemodynamically stable
CT abdomen pelvis:Moderate bilateral hydroureteronephrosis. Distended urinary bladder.
Small calcification in the urinary bladder near the tip of the suprapubic catheter, concerning for obstruction of
the suprapubic catheter drainage.
Urinary bladder wall thickening and fat stranding. Recommend correlation with a urinalysis.
Bilateral nephrolithiasis.
Mild stool distention of the rectum and mild circumferential rectal wall thickening suggesting for stercoral colitis.
#ARINA secondary to clogged suprapubic catheter/moderate bilateral hydroureteronephrosis/distended bladder
Creat 2.7/bun 34
Improving creatinine-today 1.8
Continue to follow
#Stercoral colitis
-Enema
- Continue with MiraLAX, Senokot
#Acute hyperkalemia secondary to ARINA
Normalized
#DM2 with hyperglycemia
Blood sugar 324 check HgbA1c
-Accu-Cheks with SSI
- NovoLog 5 units now
#History subdural hematoma 04/07/2025
#Dementia
Oriented to name, place but not year, president, history
- Continue Namenda, donepezil
#Alcohol use
Drinks 1 to 2 glasses of wine a day per
#CAD/CABG times 09/17/1994
Continue metoprolol 50 mg twice daily with hold parameters, Crestor, Zetia
#HTN
Under goal
Continue metoprolol 50 mg twice daily with hold parameters
HLD
Continue Crestor and Zetia
DVT prophylaxis
Subcu heparin
DNR
Discussed with RN
Total time spent on today's encounter was 52 minutes which included time spent in counseling the patient/family regarding diagnosis and treatment plan as listed above, goals of care, and symptom management. Case was discussed with nursing staff,
specialists, and care coordinators/case management. All labs and imaging personally reviewed by me. Remainder the time spent in detailed review of previous records, lab data, imaging, and other medical provider documentation.
Portions of this chart may have been created with voice recognition software. Occasional wrong word or 'sound alike' substitutions may have occurred due to the inherent limitations of voice recognition software.
Anticipated Discharge: > 48 hours
Subjective/Interval History
-
Date of Service: May 16, 2025
Patient is alert and oriented.
Voices no specific complaints. Denies any fever chills.
No nausea vomiting. Tolerating diet. Denies any shortness of breath.
He says he lives alone at home.
Objective Data
-
Labs:
Laboratory Results
05/16/25
06:51
WBC 17.0 H
Hgb 13.3
Hct 39.5
Plt Count 147 D
Sodium 142
Potassium 4.7
Chloride 113 H
Carbon Dioxide 23
BUN 44 H
Creatinine 1.8 H
Glucose 177 H
Calcium 9.4
Total Bilirubin 1.2
AST 33
ALT 41
Alkaline Phosphatase 58
Vital Signs:
Vital Signs
Temp Pulse Resp BP Pulse Ox
97.6 F 84 19 107/60 98
05/16/25 07:45 05/16/25 07:45 05/16/25 07:45 05/16/25 07:45 05/16/25 07:45
I&O
05/15/25 05/16/25 05/17/25
06:59 06:59 06:59
Output Total 700 / 700
Balance -700 / -700
Physical Exam
-
General: No Apparent Distress
Respiratory: Clear to Auscultation and Non Labored Respirations; Negative Accessory Resp Muscle Use
Cardiac: Regular Rhythm and S1/S2; Negative Tachycardic
GI: Soft
Genito-urinary: Turbid Urine and Welch; Negative Bloody Urine
Neuro: AO x 3
Psych: Calm; Negative Confused
Data Reviewed
-
Labs: Labs Reviewed by me
[2025-05-16 11:45] LABS: Glucose - Point of Care 186 mg/dl (70-99)
[2025-05-16 15:24] VITALS: BP 129/68
[2025-05-16 16:28] LABS: Glucose - Point of Care 158 mg/dl (70-99)
--- NOTE | 2025-05-16 16:34 | CM ---
Alert awake oriented patient who lives with his SO Italo who lives in a 2 story home with 2 step to enter and 3 steps to bed and bathroom. He is independent in driving and in all activities of daily living.He was offered VN he declined need.
DH VN hx / No SNF history
Pharmacy [facility] on [address]
PCP DR Crum
PLAN will need PT OT francesco for dc planning
[2025-05-16] MEDS: STERILE WATER FOR INJECTION 10 ML IV (17:35)
[2025-05-16] MEDS: MAXIPIME 1000 MG IV (17:36)
[2025-05-16 21:30] LABS: Glucose - Point of Care 113 mg/dl (70-99)
[2025-05-16] MEDS: ARICEPT 20 MG PO (21:47)
[2025-05-16 23:00] VITALS: BP 111/62
[2025-05-16] MEDS: NSS IV (23:00)
[2025-05-17 06:57] LABS: Hematocrit 34.7 % (39.0-52.0); Hemoglobin 11.5 g/dL (13.0-18.0); Mean Corp Hgb Conc. 33.1 g/dL (33.0-37.0); Mean Corpuscular Volume 108.1 fL (80.0-94.0); Platelet Count 104 10^3/uL (130-400); Red Cell Dist. Width 14.3 % (11.5-14.5)
[2025-05-17 07:12] LABS: ALT (SGPT) 41 U/L (0-50); AST (SGOT) 46 U/L (17-59); Albumin 2.7 g/dl (3.5-5.0); Alkaline Phosphatase 66 U/L (38-126); Blood Urea Nitrogen 35 mg/dl (9-20); Calcium 8.8 mg/dl (8.4-10.2); Carbon Dioxide 22 mmol/L (22-30); Chloride 114 mmol/L (98-107); Estimated Creatinine Clearance 41 ml/min; Glucose 122 mg/dl (70-99); Potassium 4.1 mmol/L (3.5-5.1); Sodium 141 mmol/L (135-145); Total Protein 5.5 g/dl (6.3-8.2); eGFR 59.63
[2025-05-17 07:15] VITALS: BP 91/47
[2025-05-17] MEDS: ZETIA 10 MG PO (07:51)
[2025-05-17] MEDS: SENOKOT-S 1 TABLET PO ×2 (07:52→22:15)
[2025-05-17] MEDS: VITAMIN B-12 1000 MCG PO (07:53)
[2025-05-17] MEDS: THERAGRAN 1 TABLET PO (07:53)
[2025-05-17] MEDS: LOPRESSOR PO (07:54)
[2025-05-17] MEDS: NAMENDA 10 MG PO ×2 (07:54→22:15)
[2025-05-17] MEDS: HEPARIN 5000 UNITS SC ×2 (07:54→22:15)
[2025-05-17] MEDS: MIRALAX 17 GRAMS PO (07:55)
[2025-05-17] MEDS: CRESTOR 40 MG PO (07:55)
[2025-05-17 08:02] LABS: Glucose - Point of Care 130 mg/dl (70-99)
[2025-05-17] MEDS: NOVOLOG FLEXPEN-LOW RESISTANCE SC (08:05)
--- NOTE | 2025-05-17 08:59 | W.PN.URO.CBU ---
Today's Communication / Plan
-
continue sp tube- now functional
treat infx
Assessment / Plan
-
chronic NGB with sp tube
sp tube obstruction with resultant UTI and reflux hydro/UJLIANN
sp tube functional and draining
cr downtrending- back to baseline
continue hydration- antibx
pt should f/u in our [facility] [address] verdugo specifically for eval and tube change change
Diagnosis
-
Date of Service: May 17, 2025
-
Patient Diagnosis:
Post Op Day:
Patient Diagnosis:
neurogenic bladder with sp tube
admitted with sp tube obstruction/bladder distention/hydro and UTI and elevated cr
sp tube exchanged 05/15
Subjective
-
pt asleep
urine clear
cx's + for proteus
cr back to baseline
Objective
-
Vital Signs
Temp Pulse Resp BP Pulse Ox
97.9 F 71 16 91/47 99
05/17/25 07:15 05/17/25 07:15 05/17/25 07:15 05/17/25 07:15 05/17/25 07:15
Intake and Output
05/16/25 05/17/25 05/18/25
06:59 06:59 06:59
Intake Total 1410 / 1410
Output Total 700 / 700 650 / 650 850 / 850
Balance -700 / -700 760 / 760 -850 / -850
Intake:
Oral fluids 210 / 210
IV fluids (Total) 1200 / 1200
Output:
Urine, Welch 850 / 850
Suprapubic output 700 / 700 650 / 650
Other:
Number of unmeasured liquid
stools
Rectum 3 3
Laboratory Results
05/17/25 05:41
05/17/25 05:41
Physical Exam
-
General - no acute distress
Abdomen - soft, non-tender, sp tube in place
[2025-05-17 10:48] LABS: Nucleated Red Blood Cells % 0 % (-)
--- NOTE | 2025-05-17 11:33 | W.PN.HOSP.TC ---
Today's Communication/Plan
-
Continues with IV cefepime for today and check blood culture data tomorrow.
PT OT eval
DC planning
Assessment / Plan
Assessment / Plan
#Sepsis 2/2 symptomatic UTI from clogged suprapubic catheter
#Complicated UTI with Proteus bacteremia
#History of neurogenic bladder with chronic suprapubic tube
#History E. coli, Klebsiella oxytoca 05/18/2024
Recent suprapubic catheter changed on 05/08/[address] Hoang
-Continue with IV cefepime. Await cx data
- S/p change of suprapubic catheter by urology on admission
- Afebrile and hemodynamically stable;improving WBC
CT abdomen pelvis:Moderate bilateral hydroureteronephrosis. Distended urinary bladder.
Small calcification in the urinary bladder near the tip of the suprapubic catheter, concerning for obstruction of
the suprapubic catheter drainage.
Urinary bladder wall thickening and fat stranding. Recommend correlation with a urinalysis.
Bilateral nephrolithiasis.
Mild stool distention of the rectum and mild circumferential rectal wall thickening suggesting for stercoral colitis.
#ARINA secondary to clogged suprapubic catheter/moderate bilateral hydroureteronephrosis/distended bladder
Creat 2.7/bun 34
Improving creatinine-today 1.2
Continue to follow
# Thrombocytopenia-suspected sepsis
Follow for now
#Stercoral colitis
-Enema
- Continue with MiraLAX, Senokot
#Acute hyperkalemia secondary to ARINA
Normalized
#DM2 with hyperglycemia
HgbA1c 6.2
- Blood sugars mostly controlled
-Accu-Cheks with SSI
#History subdural hematoma 04/07/2025
#Dementia
Oriented to name, place but not year, president, history
- Continue Namenda, donepezil
#Alcohol use
Drinks 1 to 2 glasses of wine a day per
#CAD/CABG times 09/17/1994
Continue metoprolol 50 mg twice daily with hold parameters, Crestor, Zetia
#HTN
Under goal
Continue metoprolol 50 mg twice daily with hold parameters
HLD
Continue Crestor and Zetia
DVT prophylaxis
Subcu heparin
DNR
PT OT eval
DC planning
Portions of this chart may have been created with voice recognition software. Occasional wrong word or 'sound alike' substitutions may have occurred due to the inherent limitations of voice recognition software.
Anticipated Discharge: 24 - 48 hours
Subjective/Interval History
-
Date of Service: May 17, 2025
Feels better. Voices no specific complaints. Denies fever chills. Denies nausea or vomiting. Denies shortness of breath.
Objective Data
-
Labs:
Laboratory Results
05/17/25
05:41
WBC 14.2 H
Hgb 11.5 L
Hct 34.7 L
Plt Count 104 L D
Sodium 141
Potassium 4.1
Chloride 114 H
Carbon Dioxide 22
BUN 35 H
Creatinine 1.2
Glucose 122 H
Calcium 8.8
Total Bilirubin 0.9
AST 46
ALT 41
Alkaline Phosphatase 66
Vital Signs:
Vital Signs
Temp Pulse Resp BP Pulse Ox
97.9 F 71 16 91/47 99
05/17/25 07:15 05/17/25 07:15 05/17/25 07:15 05/17/25 07:15 05/17/25 07:15
I&O
05/16/25 05/17/25 05/18/25
06:59 06:59 06:59
Intake Total 1410 / 1410
Output Total 700 / 700 650 / 650 850 / 850
Balance -700 / -700 760 / 760 -850 / -850
Physical Exam
-
General: Comfortable
Respiratory: Clear to Auscultation and Non Labored Respirations; Negative Accessory Resp Muscle Use
Cardiac: Regular Rhythm and S1/S2; Negative Tachycardic
GI: Soft and Nontender
Genito-urinary: Clear Urine (clearing ) and Welch
Neuro: AO x 3
Psych: Calm
Data Reviewed
-
Labs: Labs Reviewed by me
[2025-05-17 11:49] LABS: Glucose - Point of Care 153 mg/dl (70-99)
[2025-05-17] MEDS: NSS IV (12:06)
[2025-05-17] MEDS: MAXIPIME 1000 MG IV ×2 (12:13→22:16)
[2025-05-17] MEDS: STERILE WATER FOR INJECTION 10 ML IV ×2 (12:13→22:16)
[2025-05-17] MEDS: NOVOLOG FLEXPEN-LOW RESISTANCE 1 UNITS SC ×2 (12:14→18:12)
[2025-05-17 15:45] VITALS: BP 108/58
[2025-05-17 16:41] LABS: Glucose - Point of Care 173 mg/dl (70-99)
[2025-05-17] MEDS: ARICEPT 20 MG PO (22:15)
[2025-05-17 22:16] LABS: Glucose - Point of Care 99 mg/dl (70-99)
[2025-05-17] MEDS: LOPRESSOR 50 MG PO (22:20)
[2025-05-17 23:30] VITALS: BP 124/71
[2025-05-18 06:08] LABS: Hematocrit 38.5 % (39.0-52.0); Hemoglobin 12.4 g/dL (13.0-18.0); Mean Corp Hgb Conc. 32.2 g/dL (33.0-37.0); Mean Corpuscular Volume 105.2 fL (80.0-94.0); Nucleated Red Blood Cells % 0 % (-); Platelet Count 113 10^3/uL (130-400); Red Cell Dist. Width 14.1 % (11.5-14.5)
[2025-05-18 06:31] LABS: ALT (SGPT) 127 U/L (0-50); AST (SGOT) 151 U/L (17-59); Albumin 2.9 g/dl (3.5-5.0); Alkaline Phosphatase 96 U/L (38-126); Blood Urea Nitrogen 24 mg/dl (9-20); Calcium 8.7 mg/dl (8.4-10.2); Carbon Dioxide 21 mmol/L (22-30); Chloride 113 mmol/L (98-107); Estimated Creatinine Clearance 45 ml/min; Glucose 98 mg/dl (70-99); Potassium 3.7 mmol/L (3.5-5.1); Sodium 138 mmol/L (135-145); Total Protein 5.8 g/dl (6.3-8.2); eGFR > 60.00
[2025-05-18] MEDS: MAXIPIME 1000 MG IV (06:39)
[2025-05-18] MEDS: STERILE WATER FOR INJECTION 10 ML IV (06:39)
--- NOTE | 2025-05-18 07:20 | W.PN.HOSP.TC ---
Today's Communication/Plan
-
ID consult
labs in the AM
outpatient fu with urology after dc
Assessment / Plan
Assessment / Plan
84-year-old male with dementia and long-standing bladder dysfunction and suprapubic tube presented with c/o abdominal pain
#Sepsis 2/2 symptomatic UTI from clogged suprapubic catheter
#Complicated UTI with Proteus bacteremia
#History of neurogenic bladder with chronic suprapubic tube
#History E. coli, Klebsiella oxytoca 05/18/2024
Recent suprapubic catheter changed on 05/08/[address] Hoang
- Continue with IV cefepime Day 4. Dose changed on 05/17 and now Lfts are elevated. ?? s/e from cefepime; will consult ID for abx choice
- S/p change of suprapubic catheter by urology on admission
- Afebrile and hemodynamically stable;improving WBC
CT abdomen pelvis:Moderate bilateral hydroureteronephrosis. Distended urinary bladder.
Small calcification in the urinary bladder near the tip of the suprapubic catheter, concerning for obstruction of
the suprapubic catheter drainage.
Urinary bladder wall thickening and fat stranding. Recommend correlation with a urinalysis.
Bilateral nephrolithiasis.
Mild stool distention of the rectum and mild circumferential rectal wall thickening suggesting for stercoral colitis.
#ARINA secondary to clogged suprapubic catheter/moderate bilateral hydroureteronephrosis/distended bladder
-Creat 2.7/bun 34 on presentation
-Resolved
# Thrombocytopenia-suspected sepsis
- Follow for now
#Stercoral colitis
- Continue with MiraLAX, Senokot
#Acute hyperkalemia secondary to ARINA
- resolved
#DM2 with hyperglycemia
HgbA1c 6.2
- Blood sugars mostly controlled
-Accu-Cheks with SSI
#History subdural hematoma 04/07/2025
#Dementia
Oriented to name, place but not year, president, history
- Continue Namenda, donepezil
#Alcohol use
Drinks 1 to 2 glasses of wine a day
#CAD/CABG times 09/17/1994
Continue metoprolol 50 mg twice daily with hold parameters, Crestor, Zetia
#HTN
-controlled
-Continue metoprolol 50 mg twice daily with hold parameters
#HLD
-Continue Crestor and Zetia
DVT prophylaxis
Subcu heparin
DNR
Anticipated Discharge: 24 - 48 hours
Subjective/Interval History
-
Date of Service: May 18, 2025
Afvss, reports mild pain near the site of suprapubic catheter.
Objective Data
-
Labs:
Laboratory Results
05/18/25
05:34
WBC 11.5 H
Hgb 12.4 L
Hct 38.5 L
Plt Count 113 L
Sodium 138
Potassium 3.7
Chloride 113 H
Carbon Dioxide 21 L
BUN 24 H
Creatinine 1.1
Glucose 98
Calcium 8.7
Total Bilirubin 1.0
AST 151 H
ALT 127 H
Alkaline Phosphatase 96
Vital Signs:
Vital Signs
Temp Pulse Resp BP Pulse Ox
98.5 F 68 16 124/71 98
05/17/25 23:30 05/17/25 23:30 05/17/25 23:30 05/17/25 23:30 05/17/25 23:30
I&O
05/17/25 05/18/25 05/19/25
06:59 06:59 06:59
Intake Total 1410 / 1410 2880 / 2880
Output Total 650 / 650 2600 / 2600
Balance 760 / 760 280 / 280
Review of Systems
-
History Source: Patient
All other systems: Reviewed and negative
Physical Exam
-
General: No Apparent Distress and Comfortable
Respiratory: Clear to Auscultation and Non Labored Respirations; Negative Accessory Resp Muscle Use
Cardiac: Regular Rhythm and S1/S2; Negative Tachycardic
GI: Soft, Nontender and Nondistended
Genito-urinary: Clear Urine (clearing ) and Supra Pubic Tube
Skin: Warm
Neuro: AO x 3
Psych: Calm
Data Reviewed
-
CT Scan: Report Reviewed by me and Discussed with Physician
Labs: Labs Reviewed by me, Discussed with Physician and Discussed with Patient
[2025-05-18 07:30] VITALS: BP 123/64
--- NOTE | 2025-05-18 07:38 | W.PN.URO.CBU ---
Today's Communication / Plan
-
outpt f/u
Assessment / Plan
-
chronic NGB with sp tube
sp tube obstruction with resultant UTI and reflux hydro/JULIANN
sp tube functional and draining
cr downtrending- back to baseline- hydro secondary to bladder distension
continue hydration- antibx
pt should f/u in our office in [address] verdugo specifically for eval and tube change change
Diagnosis
-
Date of Service: May 18, 2025
-
Patient Diagnosis:
neurogenic bladder with sp tube
admitted with sp tube obstruction/bladder distention/hydro and UTI and elevated cr
sp tube exchanged 05/15
Subjective
-
pt awake and alert
no complaints
urine clear
no fevers and wbc slowly declining
ucx + for providencia/ blood cx + for proteus
Objective
-
Vital Signs
Temp Pulse Resp BP Pulse Ox
97.8 F 69 18 124/71 96
05/18/25 07:30 05/18/25 07:30 05/18/25 07:30 05/17/25 23:30 05/18/25 07:30
Intake and Output
05/17/25 05/18/25 05/19/25
06:59 06:59 06:59
Intake Total 1410 / 1410 2880 / 2880
Output Total 650 / 650 2600 / 2600
Balance 760 / 760 280 / 280
Intake:
Oral fluids 210 / 210 1680 / 1680
IV fluids (Total) 1200 / 1200 1200 / 1200
Output:
Urine, Welch 850 / 850
Suprapubic output 650 / 650 1750 / 1750
Other:
Number of approximated MODERATE 1
amounts of urine
Number of unmeasured liquid
stools
Rectum 3 1
Laboratory Results
05/18/25 05:34
05/18/25 05:34
Physical Exam
-
General - no acute distress
Abdomen - soft, non-tender- sp tube in place
[2025-05-18 07:59] LABS: Glucose - Point of Care 126 mg/dl (70-99)
[2025-05-18] MEDS: NOVOLOG FLEXPEN-LOW RESISTANCE SC ×3 (08:47→16:47)
[2025-05-18] MEDS: MIRALAX PO (08:52)
[2025-05-18] MEDS: SENOKOT-S PO ×2 (08:52→20:43)
[2025-05-18] MEDS: VITAMIN B-12 1000 MCG PO (08:57)
[2025-05-18] MEDS: LOPRESSOR 50 MG PO ×2 (08:57→20:38)
[2025-05-18] MEDS: ZETIA 10 MG PO (08:57)
[2025-05-18] MEDS: THERAGRAN 1 TABLET PO (08:57)
[2025-05-18] MEDS: NAMENDA 10 MG PO ×2 (08:57→20:36)
[2025-05-18] MEDS: CRESTOR 40 MG PO (08:57)
[2025-05-18] MEDS: HEPARIN 5000 UNITS SC ×2 (08:57→20:37)
[2025-05-18 12:07] LABS: Glucose - Point of Care 149 mg/dl (70-99)
--- NOTE | 2025-05-18 12:27 | CON.ID ---
Addendum entered and electronically signed by Flores Gómez MD 05/18/25 14:41:
I personally performed a history and physical exam of the patient and discussed management with the resident. I reviewed the resident's note and agree with the documented findings and plan of care HPI/CC with the following additions/corrections:
Mr Benoit is an 84 year old male with history of neurogenic bladder with suprapubic catheter, diabetes, dementia who presented here for rectal pain, suprapubic area pain and some drops of blood on the sheets. Catheter had been changed about 1
week before arrival. Reports chills without fever. denied history of fever, headache, constipation, diarrhea, chest pain, cough, shortness of breath. The catheter was found to be blocked - it would not irrigate; CT with distended bladder with
hydronephrosis. it was replaced with return of 1.5 L of purulent/foul smelling urine. Urine culture with Providencia in two sets of urine culturs, blood culture one set with Proteus. WBC initially 17.8 now 11.5, hbg 15.5 now 12.4, plt 190 now
113, L shift noted. Cr on arrival 2.7 now 1.1, na 143, T bili 1.1, ast 40, alt 55, alk phos 65; repeat t bili today 1.0, ast 151, alt 127, alk phos 96. Patient has been on cefepime throughout this time. ID is consulted for assistance with
management.
Physical Exam
General: Conversant, Pain and Chills; No Fever
Respiratory: Clear; No Wheezes, Rales or Rhonchi
Cardiac: S1/S2 and Regular Rhythm; No Murmur, Rub, Gallop or Peripheral Edema
Breast: Deferred by me
GI: Soft, Normal Bowel Sounds and nontender
Genito-urinary: Suprapubic Tube, mild tenderness around the tube
Musculoskeletal: No Clubbing, No Cyanosis and No Edema
Skin: Warm and Dry; No Rash
Neuro: Awake, Alert, Oriented
A&P
DILI - possibly due to cefepime
Complicated UTI
Bacteremia with Proteus
- blood culture in progress send a second set to complete the pair
- suspect the proteus is also from the tract
- QTc 450
- switch to ciprofloxacin
- follow up LFTs
- add cefepime to allergy list
Original Note:
Consultation
-
Date/Time Consultation Requested: 05/18/2025 at 10:30 AM
Date/Time Consultation Performed: 05/18/2025 at 11:30 AM
Requesting Provider: Justice Hilliard MD
Performing Provider: Flores Gómez MD
Reason for Consultation: Transaminitis secondary to cefepime
Chief Complaint / Past History
Chief Complaint
Urinary tract infection secondary to obstructed suprapubic catheter
History of Present Illness
Patient is an 84-year-old male with a past medical history of coronary artery disease, VT, essential hypertension, isl-mvqfhps-ichnemnot diabetes mellitus, subdural hemorrhage, dementia, hyperlipidemia, neurogenic bladder status post suprapubic
catheter who presented to the emergency department with rectal pain and suprapubic tenderness near catheter. Patient was found by his to have drops of blood on his sheets in bed possibly secondary to picking at his rectum the day prior to
his presentation. He also had severe constant pain in his rectal area for the rest of the day which progressively got worse. He also had increasing pain in his suprapubic area with chills where his suprapubic catheter was in place. His last
suprapubic catheter change was on May [address] Hoang. He had poor oral intake the day prior to his presentation and only took approximately 20 ounces of juice and 1 cup of coffee for the whole day. The patient did not report any fever,
headache, constipation, diarrhea, chest pain, shortness of breath, wheezing, or cough.
Past History
Additional Past Medical History:
Neurogenic bladder status post suprapubic catheter
Dementia
Mki-uajekjn-lznzdffen type 2 diabetes mellitus
Coronary artery disease status post CABG
Essential hypertension
Hyperlipidemia
History of UTIs secondary to E. coli, Klebsiella oxytoca, Pseudomonas, MSSA, viridans, Enterococcus
Past Surgical History: Cardiac (Status post CABG) and Other (Cataracts)
Allergy History:
No Known Allergies Allergy (Verified 05/15/25 10:16)
Medications Reviewed: Yes
Current Antibiotics:
Currently on IV cefepime at 1000 mg every 8 hours -received 3 doses -was originally on cefepime 1000 mg daily and received 1 dose on May 15 and May 16 -total 5 doses administered over 3 days.
Social History
Tobacco: Non-Smoker
Alcohol: Daily (1 to 2 glasses of wine)
Personal:
Living: With Family
Employment: Retired
Family History
Family History: Not Pertinent
Review of Systems
Review of Systems
All systems: All other systems were reviewed and were negative
Vital Signs
Temp Pulse Resp BP Pulse Ox
97.8 F 69 18 123/64 96
05/18/25 07:30 05/18/25 08:57 05/18/25 07:30 05/18/25 08:57 05/18/25 07:30
Physical Exam
Physical Exam
Head: Normocephalic
Eyes: Pupils Equal
Cardiovascular: S1/S2; Negative Murmur, Rub, Peripheral Edema or Gallop
Pulmonary: Clear and Non Labored; Negative Wheezes, Rales, Rhonchi or Coarse
Gastrointestinal: Soft, Non Tender, Non Distended, Normal Bowel Sounds, No Rebound and No Guarding
Genito-Urinary: Other (Suprapubic catheter)
Extremities: Negative Edema, Clubbing or Cyanosis
Musculoskeletal: Negative Joint Swelling
Skin: Warm and Dry; Negative Rash, Jaundice or Ulcers
Neurological: Awake and Alert
Psychological: Calm
Lab / Diagnostic Study Results
05/18/25 05:34
05/18/25 05:34
Abs Immat Gran (auto) 0.1 10^3/uL (0-0.05) H 05/18/25 05:34
Absolute Neuts (auto) 9.3 10^3/uL (1.4-6.5) H 05/18/25 05:34
Absolute Lymphs (auto) 1.7 10^3/uL (1.2-3.4) 05/18/25 05:34
Absolute Monos (auto) 0.3 10^3/uL (0.1-0.6) 05/18/25 05:34
Absolute Basos (auto) 0.0 10^3/uL (0-0.2) 05/18/25 05:34
Immature Gran % 0.4 % (0-0.5) 05/18/25 05:34
Neutrophils % 80.6 % (42.2-75.2) H 05/18/25 05:34
Lymphocytes % 15.1 % (20.5-51.1) L 05/18/25 05:34
Monocytes % 2.7 % (1.7-9.3) 05/18/25 05:34
Eosinophils % 0.9 % (0-6) 05/18/25 05:34
Basophils % 0.3 % (0-2) 05/18/25 05:34
PT 15.5 Sec (11.4-14.6) H 05/15/25 13:49
INR 1.20 05/15/25 13:49
Ur Squamous Epith Cells 0-2 /LPF (Few) 05/15/25 14:52
Microbiology Results
Micro:
05/17/25 10:30 Blood Culture - Preliminary
Blood/Venous No Growth in 24 hours- Final report to follow
05/15/25 17:22 Blood Culture - Final
Blood/Venous Proteus mirabilis
Gram Stain - Final
05/15/25 17:37 Blood Culture - Preliminary
Blood/Venous No Growth in 48 hours- Final report to follow
05/15/25 17:22 Urine Culture - Final
Urine Providencia rettgeri
05/15/25 14:52 Urine Culture - Final
Urine Providencia rettgeri
Assessment / Plan
- Complicated UTI secondary to Providencia rettgeri: Unresolved
- Sepsis secondary to UTI: Unresolved
- Complicated UTI with Proteus bacteremia: Unresolved
- Neurogenic bladder status post chronic indwelling suprapubic catheter: Stable/monitoring
- Drug induced liver injury secondary to Cefepime: Unresolved
Past medical history of UTIs -08/12/2021 UCx positive for Enterobacter, 09/16/2022 UCx positive for Pseudomonas + MSSA + Enterococcus, 10/24/2022 UCx positive for Pseudomonas + MSSA + viridans, 05/18/2024 UCx positive for E. coli and Klebsiella
2x urine cultures positive for Providencia rettgeri -sensitivities obtained
1 blood culture positive for Proteus mirabilis -indicating complicated UTI
In the ED WBCs at 17.8, neutrophil predominance, heart rate 93, with positive urine culture indicating sepsis secondary to UTI
CT abdomen and pelvis conducted on 05/15/2025 showed moderate bilateral hydronephrosis with distended urinary bladder. Small calcification in the urinary bladder near the tip of the suprapubic catheter concerning for obstruction of suprapubic
catheter drainage
Creatinine was elevated at 2.7 indicating ARINA likely secondary to UTI superimposed on suprapubic catheter blockage
Patient responded well to cefepime every 24 hours with leukocytosis improving (2 doses at q24h). WBCs at 14.2 on 05/17
Patient was then switched to cefepime 1000 mg IV every 8 hours on 05/17/2025. Leukocytosis continued to improve with white blood cell count at 11.5 on 05/18... Unfortunately transaminitis with AST of 151 and ALT of 127 likely secondary to
increased frequency of cefepime dosing.
Cefepime Discontinued. Sensitivity to Ciprofloxacin. Will switch to cipro
Trend LFTs
Ciprofloxacin 500mg PO BID for 4d (3 days of Cefepime + 4 days of Ciprofloxacin for a total of 7d of abx)
[2025-05-18] MEDS: STERILE WATER FOR INJECTION IV (13:13)
[2025-05-18] MEDS: MAXIPIME IV (13:13)
--- NOTE | 2025-05-18 13:53 | CM ---
Spoke with pt and SO in room.
Requested OT eval order from .
Reviewed PT eval.
PT indicates SNF>
PAC data given ,
Awaiting OT eval
Pt will let CM know his request for DC.
PLAN Home with VN VS SNF.
[2025-05-18 16:00] VITALS: BP 136/74
[2025-05-18 16:43] LABS: Glucose - Point of Care 126 mg/dl (70-99)
[2025-05-18] MEDS: CIPRO 500 MG PO (20:37)
[2025-05-18] MEDS: ARICEPT 20 MG PO (21:13)
[2025-05-18 21:32] LABS: Glucose - Point of Care 154 mg/dl (70-99)
[2025-05-18 22:36] VITALS: BP 139/72
[2025-05-19] VITALS (7 sets, daily range): BP systolic 101–142; BP diastolic 59–83; PULSE 82; O2SAT 96
[2025-05-19 05:41] LABS: Hematocrit 37.3 % (39.0-52.0); Hemoglobin 13.2 g/dL (13.0-18.0); Mean Corp Hgb Conc. 35.4 g/dL (33.0-37.0); Mean Corpuscular Volume 98.9 fL (80.0-94.0); Nucleated Red Blood Cells % 0 % (-); Platelet Count 125 10^3/uL (130-400); Red Cell Dist. Width 13.3 % (11.5-14.5)
[2025-05-19 06:45] LABS: ALT (SGPT) 116 U/L (0-50); AST (SGOT) 82 U/L (17-59); Albumin 3.1 g/dl (3.5-5.0); Alkaline Phosphatase 100 U/L (38-126); Blood Urea Nitrogen 20 mg/dl (9-20); Calcium 8.4 mg/dl (8.4-10.2); Carbon Dioxide 21 mmol/L (22-30); Chloride 108 mmol/L (98-107); Estimated Creatinine Clearance 45 ml/min; Glucose 126 mg/dl (70-99); Potassium 3.5 mmol/L (3.5-5.1); Sodium 139 mmol/L (135-145); Total Protein 6.0 g/dl (6.3-8.2); eGFR > 60.00
[2025-05-19 07:57] LABS: Glucose - Point of Care 121 mg/dl (70-99)
[2025-05-19] MEDS: NOVOLOG FLEXPEN-LOW RESISTANCE SC ×3 (09:37→17:32)
[2025-05-19] MEDS: CIPRO 500 MG PO ×2 (09:38→20:47)
[2025-05-19] MEDS: HEPARIN 5000 UNITS SC (09:39)
[2025-05-19] MEDS: LOPRESSOR 50 MG PO ×2 (09:39→20:48)
[2025-05-19] MEDS: CRESTOR 40 MG PO (09:39)
[2025-05-19] MEDS: NAMENDA 10 MG PO ×2 (09:40→20:49)
[2025-05-19] MEDS: MIRALAX PO (09:40)
[2025-05-19] MEDS: SENOKOT-S PO (09:40)
[2025-05-19] MEDS: VITAMIN B-12 1000 MCG PO (09:41)
[2025-05-19] MEDS: THERAGRAN 1 TABLET PO (09:41)
[2025-05-19] MEDS: ZETIA 10 MG PO (09:41)
--- NOTE | 2025-05-19 10:57 | W.PN.ID1 ---
Date of Service
Date of Service: May 19, 2025
Today's Communication
- continue ciprofloxacin to complete a 10 day total course 05/15-05/24
- LFTs are improving
- added cefepime to allergy list
- stable for dc from ID perspective
Assessment / Plan
DILI - possibly due to cefepime
Complicated UTI
Bacteremia with Proteus
- blood culture in progress send a second set to complete the pair
- suspect the proteus is also from the tract
- continue ciprofloxacin to complete a 10 day total course 05/15-05/24
- LFTs are improving
- added cefepime to allergy list
- stable for dc from ID perspective
Chief Complaint
-: UTI and Other (DILI)
Subjective / Review of Systems
afebrile
bp stable
still with some tenderness around the SP tube, reports this is chronic
Vital Signs / Physical Exam
Vital Signs
Vital Signs
Temp Pulse Resp BP Pulse Ox
97.8 F 80 20 142/83 95
05/19/25 07:51 05/19/25 07:51 05/19/25 07:51 05/19/25 07:51 05/19/25 07:51
Physical Exam
Constitutional: No Acute Distress
Cardiovascular: Regular Rate and S1/S2; Negative Murmur or Rub
Pulmonary: Clear and Symmetric; Negative Wheezes or Rales
Gastrointestinal: Soft, Non Tender, Non Distended and Normal Bowel Sounds
Genito-Urinary: Other (some tenderness around the suprapubic tube - reports this is chronic)
Skin: Warm and Dry; Negative Rash or Jaundice
Objective Data
Lab Data
Lab Results
05/19/25 05:25
05/19/25 05:25
PT 15.5 Sec (11.4-14.6) H 05/15/25 13:49
INR 1.20 05/15/25 13:49
APTT 25.9 Sec (23.4-35.0) 05/15/25 13:49
Estimated Creat Clear 45 ml/min 05/19/25 05:25
Total Bilirubin 1.0 mg/dl (0.2-1.3) 05/19/25 05:25
AST 82 U/L (17-59) H 05/19/25 05:25
ALT 116 U/L (0-50) H 05/19/25 05:25
Alkaline Phosphatase 100 U/L (38-126) 05/19/25 05:25
Most recent labs reviewed.
Micro Results:
05/17/25 10:30 Blood Culture - Preliminary
Blood/Venous No Growth in 48 hours- Final report to follow
05/15/25 17:37 Blood Culture - Preliminary
Blood/Venous No Growth in 72 hours- Final report to follow
05/18/25 13:16 Blood Culture - Pending
Blood/Venous
05/15/25 17:22 Blood Culture - Final
Blood/Venous Proteus mirabilis
Gram Stain - Final
05/15/25 17:22 Urine Culture - Final
Urine Providencia rettgeri
05/15/25 14:52 Urine Culture - Final
Urine Providencia rettgeri
--- NOTE | 2025-05-19 11:18 | W.PN.HOSP.TC ---
Today's Communication/Plan
-
Medically stable for discharge to SNF
Assessment / Plan
Assessment / Plan
General: No Apparent Distress, Comfortable and Conversant
HEENT: NormoCephalic, Moist mucous membranes, Atraumatic
Respiratory: Clear and Non Labored Respirations
Cardiac: S1/S2 and Regular Rhythm; No Rub or Gallop
GI: Soft, normal bowel sounds
Musculoskeletal: No Edema, no deformity
Skin: Warm and dry
: suprapubic catheter in place draining clear yellow urine
Neuro: Awake, Alert, Nonfocal/grossly intact
Psych: Calm and cooperative
84-year-old male with dementia and long-standing bladder dysfunction and suprapubic tube presented with c/o abdominal pain
#Sepsis 2/2 symptomatic UTI from clogged suprapubic catheter
#Complicated UTI with Proteus bacteremia
#History of neurogenic bladder with chronic suprapubic tube
#History E. coli, Klebsiella oxytoca 05/18/2024
Recent suprapubic catheter changed on 05/08/[address] Hoang
- Change antibiotics from cefepime to ciprofloxacin to continue through 05/24
- Cefepime listed as a allergy due to drug-induced liver injury
- LFTs resolving
- Appreciate guidance from infectious disease team
- Medically stable for discharge to SNF
- S/p change of suprapubic catheter by urology on admission
- Afebrile and hemodynamically stable;improving WBC
CT abdomen pelvis:Moderate bilateral hydroureteronephrosis. Distended urinary bladder.
Small calcification in the urinary bladder near the tip of the suprapubic catheter, concerning for obstruction of
the suprapubic catheter drainage.
Urinary bladder wall thickening and fat stranding. Recommend correlation with a urinalysis.
Bilateral nephrolithiasis.
Mild stool distention of the rectum and mild circumferential rectal wall thickening suggesting for stercoral colitis.
#ARINA secondary to clogged suprapubic catheter/moderate bilateral hydroureteronephrosis/distended bladder
-Creat 2.7/bun 34 on presentation
-Resolved
# Thrombocytopenia-suspected sepsis
- Follow for now, hold subcu heparin, change DVT prophylaxis to SCDs
#Stercoral colitis
- Continue with MiraLAX, Senokot
#Acute hyperkalemia secondary to ARINA
- resolved
#DM2 with hyperglycemia
HgbA1c 6.2
- Blood sugars mostly controlled
-Accu-Cheks with SSI
#History subdural hematoma 04/07/2025
#Dementia
Oriented to name, place but not year, president, history
- Continue Namenda, donepezil
#Alcohol use
Drinks 1 to 2 glasses of wine a day
#CAD/CABG times 09/17/1994
Continue metoprolol 50 mg twice daily with hold parameters, Crestor, Zetia
#HTN
-controlled
-Continue metoprolol 50 mg twice daily with hold parameters
#HLD
-Continue Crestor and Zetia
DVT prophylaxis
SCDs
DNR
Anticipated Discharge: 24 - 48 hours
Subjective/Interval History
-
Date of Service: May 19, 2025
Patient was seen and examined at bedside this morning. Feeling well, no complaints. LFTs improving.
Objective Data
-
Labs:
Laboratory Results
05/19/25
05:25
WBC 12.4 H
Hgb 13.2
Hct 37.3 L
Plt Count 125 L
Sodium 139
Potassium 3.5
Chloride 108 H
Carbon Dioxide 21 L
BUN 20
Creatinine 1.1
Glucose 126 H
Calcium 8.4
Total Bilirubin 1.0
AST 82 H
ALT 116 H
Alkaline Phosphatase 100
Vital Signs:
Vital Signs
Temp Pulse Resp BP Pulse Ox
97.8 F 80 20 142/83 95
05/19/25 07:51 05/19/25 07:51 05/19/25 07:51 05/19/25 07:51 05/19/25 07:51
I&O
05/18/25 05/19/25 05/20/25
06:59 06:59 06:59
Intake Total 2880 / 2880 800 / 800
Output Total 2600 / 2600 2350 / 2350
Balance 280 / 280 -1550 / -1550
Review of Systems
-
History Source: Patient
All other systems: Reviewed and negative
Physical Exam
-
General: No Apparent Distress
[2025-05-19 11:56] LABS: Glucose - Point of Care 139 mg/dl (70-99)
--- NOTE | 2025-05-19 12:06 | CON.NEURO4 ---
Addendum entered and electronically signed by William Truong MD 05/19/25 17:46:
Studies reviewed.
I have personally examined the patient. I reviewed and agree with the SUCTION DREDGE DUMPING SUPERVISOR's Note.
My addenda:
Awake, alert, interactive. No acute distress.
Speech intact.
Follows 2-step requests w/o difficulty. No tremor.
Extra-ocular movements grossly intact.
Facial movements full and symmetric. Hearing intact to normal conversational volume.
Normal UE movements bilaterally.
Neck: full ROM.
Chest: no dyspnea
Heart: no JVD
Ext: (-) Clubbing, (-) Cyanosis, (-) Edema
GCS 14
IMPRESSIONS/RECOMMENDATIONS:
Abrupt onset of worsening aphasia, not evident currently
CT of the head demonstrates acute changes to the patient's known left hemispheric subdural hematoma therefore would request evaluation by neurosurgery
Repeat CT of the head in 6 hours to determine if there is worsening
Would not at this time check EEG
Would not at this time initiate antiseizure medication as the patient is not clearly demonstrating seizure activity
Total Critical Care Time= 40 minutes.
The neurological system is affected and the action required by me to prevent further deterioration or potential was control over the item listed first in the Impressions and Recommendations section of this note.
I was present and personally examined the patient. I discussed patient care with other professional health care providers.
Will continue to follow patient.
Original Note:
Documented by User: Radha Danielle NP 05/19/25 13:26
Consultation - Neurology 4
-
CONSULTING PHYSICIAN: William Truong MD
REFERRING PHYSICIAN: Hospitalists/Dr. Payan
DICTATED BY: MIN Pearson
DATE/TIME OF REQUEST: 05/19/25
DATE/TIME OF CONSULTATION: 05/19/25
Reason for Consultation: Stroke Alert
History of Present Illness:
This is an 84-year-old male who has presented to the hospital on 05/15/25 with report of rectal and suprapubic area pain. Workup revealed sepsis secondary to UTI. Patient has dementia and also notably was found to have a left-sided subdural
hematoma as an outpatient in 03/2025, he has yet to see Neurosurgery as an outpatient. His home aspirin 81mg daily was stopped when the subdural hematoma was discovered. Today (05/19/25), patient's family and friends were visiting and report that his
speech sounds significantly garbled compared to yesterday. Nursing staff report that per shift report his speech has been garbled as it is now since at least 1999 last evening, if not for days. CT head was obtained and is negative for any new acute
abnormalities except for slight evolution of known subdural hematoma. NIHSS is 3 for inability to answer orientation questions and slight dysarthria. He is not a candidate for TNK/IAT due to low NIHSS, outside of time window, low concern for acute
stroke.
Past Medical History: Subdural hematoma 03/2025, HTN, HLD, [place], CAD, dementia, NIDDM, neurogenic bladder, suprapubic catheter
Surgical History: Suprapubic catheter, CABG, cardiac stents, b/l cataract extraction, lens implant, L hip repair
Family History: Reviewed and noncontributory.
Social History: Denies tobacco and illicit drug use. Daily alcohol.
Allergies: Cefepime.
Home Medications: See below.
Review of Symptoms:
Patient denies any fever, headache, chest pain, shortness of breath, GI or symptoms.
�Per the HPI.�All systems are reviewed negative except above.
Physical Exam:
The patient is afebrile, abdomen is nondistended, breathing is unlabored, skin is warm and dry, no edema.
NIH Stroke Scale:
I performed the NIH stroke scale on the patient on 05/19/25 at 1200. The patient scored 3 points on the NIH stroke scale assessment, which were assigned as follows: See below.
Neurologic Examination:
The patient is awake, alert and oriented to name, place, and year. He is able to follow commands and answer questions appropriately. There is no aphasia or dysarthria. On cranial nerve assessment, pupils are 3 mm bilateral, round and reactive to
light and accommodation. Visual mckeon are full. Extraocular movements are intact. Facial sensations are intact and bilaterally symmetrical, there is no facial asymmetry. Hearing is intact bilaterally to normal conversation volume. Tongue palate
and uvula are midline. Sternocleidomastoid strengths are full bilaterally. Motor strengths are 5/5 bilateral upper and lower extremities on medical research Vilas scale. There is no drift or involuntary movement noted. Deep tendon reflexes are 2+
bilateral upper and lower extremities and Babinski is absent bilaterally. There was no extinction noted on double simultaneous stimulation. Coordination is intact by finger to nose bilaterally.
Lab Results: See below.
Neuro Imaging:
1. CT Head : Slight evolution of now predominantly subacute left-sided subdural hematoma, although SMALL VOLUME SUPERIMPOSED RECENT LEFT FRONTAL COMPONENT is noted and questionable small volume superimposed recent left high frontoparietal
component, as detailed above. Minor midline shift from left to right without significant change. ASPECT score: 10.
Differentials for the patient's presentation include:
1. Garbled speech; likely due to toxic metabolic encephalopathy in the setting of UTI and dementia. Low concern for stroke.
2. Subacute subdural hematoma, stable.
Patient has the following risk factors for their symptoms: Dementia, UTI, SDH
IV Tenecteplase/IAT candidacy: He is not a candidate for TNK/IAT due to low NIHSS, outside of time window, low concern for acute stroke.
Recommendations:
-Outpatient neurosurgical evaluation as scheduled.
-Supportive care.
-Would avoid restarting antiplatelet medications until follow-up with Neurosurgery.
-Provide patient/family with a stroke education packet.
Discussed patient care with: Dr. Truong, the patient
Vital Signs and Labs
-
Vital Signs and Labs:
Vital Signs
Temp Pulse Resp BP Pulse Ox
97.8 F 80 20 142/83 95
05/19/25 07:51 05/19/25 07:51 05/19/25 07:51 05/19/25 07:51 05/19/25 07:51
Lab Results
05/19/25 05:25
05/19/25 05:25
PT 15.5 Sec (11.4-14.6) H 05/15/25 13:49
INR 1.20 05/15/25 13:49
APTT 25.9 Sec (23.4-35.0) 05/15/25 13:49
Sodium 139 mmol/L (135-145) 05/19/25 05:25
Potassium 3.5 mmol/L (3.5-5.1) 05/19/25 05:25
BUN 20 mg/dl (9-20) 05/19/25 05:25
Glucose 126 mg/dl (70-99) H 05/19/25 05:25
Calcium 8.4 mg/dl (8.4-10.2) 05/19/25 05:25
Phosphorus 3.6 mg/dl (2.5-4.5) 05/15/25 13:49
Medications
-
Active Medications
Generic Name Dose Route Start Last Admin
Trade Name Freq PRN Reason Stop Dose Admin
Acetaminophen 650 mg 05/15/25 18:20
Acetaminophen 325 Mg Tablet PO 06/12/25 18:19
Q4HPRN PRN
mild pain/ANNE/temp> 100.4F
Ciprofloxacin 500 mg 05/18/25 20:00 05/19/25 09:38
Ciprofloxacin 500 Mg Tablet PO 05/22/25 23:55 500 mg
BID NOEMI Administration
Cyanocobalamin 1,000 mcg 05/16/25 08:00 05/19/25 09:41
Cyanocobalamin (Vitamin B-12) 500 Mcg Tablet PO 06/13/25 07:59 1,000 mcg
DAILY NOEMI Administration
Dextrose 12.5 grams 05/15/25 18:20
Dextrose 50% (0.5 Grams/Ml) 50 Ml Syringe IV 06/12/25 18:19
[id number] PRN
hypoglycemia
Protocol
Donepezil HCl 20 mg 05/15/25 22:00 05/18/25 21:13
Donepezil Hcl 10 Mg Tablet PO 06/12/25 21:59 20 mg
HS NOEMI Administration
Ezetimibe 10 mg 05/16/25 08:00 05/19/25 09:41
Ezetimibe (Zetia) 10 Mg Tablet PO 06/13/25 07:59 10 mg
DAILY NOEMI Administration
Glucagon 1 mg 05/15/25 18:20
Glucagon 1 Mg Vial IM 06/12/25 18:19
PRN PRN
hypoglycemia
Protocol
Insulin Aspart 0 units 05/16/25 07:30 05/19/25 12:55
Insulin Aspart Low Resistance 300 Units/3 Ml Pen.Injctr SC 06/13/25 07:29 Not Given
AC NOEMI
Protocol
Memantine 10 mg 05/15/25 20:00 05/19/25 09:40
Memantine 10 Mg Tablet PO 06/12/25 19:59 10 mg
BID NOEMI Administration
Metoprolol Tartrate 50 mg 05/15/25 20:00 05/19/25 09:39
Metoprolol 50 Mg Regular Release Tablet PO 06/12/25 19:59 50 mg
BID NOEMI Administration
Multivitamins Therapeutic 1 tablet 05/16/25 08:00 05/19/25 09:41
Multivitamin Tablet PO 06/13/25 07:59 1 tablet
DAILY NOEMI Administration
Polyethylene Glycol 17 grams 05/16/25 08:00 05/19/25 09:40
Polyethylene Glycol Powder 17 Grams Packet PO 06/13/25 07:59 Not Given
DAILY NOEMI
Rosuvastatin Calcium 40 mg 05/16/25 08:00 05/19/25 09:39
Rosuvastatin (Crestor) 20 Mg Tablet PO 06/13/25 07:59 40 mg
DAILY NOEMI Administration
Senna/Docusate Sodium 1 tablet 05/15/25 20:00 05/19/25 09:40
Docusate W/Senna (Mary-Colace) Tablet PO 06/12/25 19:59 Not Given
BID NOEMI
Sodium Chloride 0 flush 05/15/25 19:00
Sodium Chloride 0.9% (Flush) Syringe IV 06/12/25 18:59
PER PROTOCOL NOEMI
Home Medications
�Medication �Instructions �Recorded
donepezil 10 mg tablet 20 mg PO HS memory 12/08/20
ezetimibe 10 mg tablet 10 mg PO DAILY High cholesterol 12/08/20
memantine 10 mg tablet 10 mg PO BID memory 05/13/21
metformin 500 mg tablet 500 mg PO DAILY Diabetes 05/13/21
Folic Acid 667 Dfe Folate 1 tab PO DAILY Supplement 06/23/23
cyanocobalamin (vitamin B-12) 1,000 mcg PO DAILY Supplement 06/23/23
1,000 mcg tablet
metoprolol tartrate 50 mg tablet 50 mg PO BID Blood Pressure 06/23/23
therapeutic multivitamin 1 tab PO DAILY Supplement 06/23/23
rosuvastatin 40 mg tablet 40 mg PO DAILY High Cholesterol 04/07/25
NIH Stroke Score
Subsequent NIH Scale
Date of Subsequent NIH Scale: 05/19/25
Time of Subsequent NIH Scale: 12:00
NIH Stroke Score
Level of Consciousness: 0 - Alert
LOC Questions: 2-Neither correct
LOC Commands: 0-Performs both correctly
Best Horizontal Gaze: 0-Normal
Visual Mckeon: 0=Normal, no visual loss
Facial Palsy: 0=Normal, symmetrical
Motor - Right Arm: 0=No drift 10 seconds
Motor - Left Arm: 0=No drift 10 seconds
Motor - Right Le-No drift 5 seconds
Motor - Left Le-No drift 5 seconds
Limb Ataxia: 0-Absent
Sensation: 0-Normal
Best Language: 0-No aphasia
Dysarthria: 1-Mild slurring
Extinction and Inattention: 0-No abnormality
NIH Total Score:: 3
Modified Roel (mRS) Score
Modified Roel Scale (mRS): No significant disability. Able to carry out usual activities.
Score: 1
Alteplase Contraindication
Inclusion and Exclusion criteria reviewed: Yes

Documented by User: William Truong MD 05/19/25 17:41
NIH Stroke Score
NIH Stroke Score
NIH Total Score:: 3
Modified Roel (mRS) Score
Score: 1
--- NOTE | 2025-05-19 12:10 | RR ---
A Rapid Response was called on this patient, please see Rapid Response form.
Friend visiting patient reported to nurse that pt's mental status seemed 'far off from his normal'. When prompted for specifics, friend focused on confusion and garbled speech, reported he saw patient yesterday and speech was clear. Stroke alert
called. NIH scored 5 for confusion, aphasia, dysarthria and RUE ataxia. VSS. BS 139. EKG NSR.
[2025-05-19] MEDS: KEPPRA 1000 MG IV (13:21)
--- NOTE | 2025-05-19 15:59 | CM ---
Pt with stroke alert
Anticipated plan for transfer to [facility] for neurosurgery eval
Awaiting acceptance from transfer center
CM will continue to follow for dc planning
Discharge Disposition- anticipate transfer to [facility]
--- NOTE | 2025-05-19 16:09 | W.PN.UPDATE ---
Update Note
Progress Note Update
Stroke alert was called for abrupt change in mental status noted by family member. CT brain showed acute on chronic subdural hematoma. Case was discussed with neurology and neurosurgery. Neurosurgical recommendations are for Keppra loading and
transferred to ICU at [facility]. Patient's , Italo, was made aware and is agreeable with the plan. Subcutaneous heparin is being held. He remains hemodynamically stable. Will continue neurochecks. On telemetry. Transfer pending
bed availability at [facility].
--- NOTE | 2025-05-19 16:26 | W.DCSUMMARY ---
Discharge Summary
Discharge Data
Date of Admission: 05/15/25
Date of Discharge: 05/19/25
-
Pending Results: No
Hospital Course
Mr. Benoit is an 84-year-old male with a medical history of longstanding bladder dysfunction (suprapubic catheter in place), dementia, recent spontaneous subdural hematoma (04/07/2025), vsi-vpodkfz-urxzztyaw diabetes mellitus, CAD (CABG x 2 in
1994), and hypertension who presented with abdominal pain. He was found to have a clogged suprapubic catheter despite recent catheter exchange. Catheter was replaced at bedside by urology on 05/15 with subsequent improvement in symptoms. He was
found to have bilateral hydroureteronephrosis which is expected to improve now that his suprapubic catheter is functioning appropriately. He also had an ARINA initially which has since resolved. He was treated with antibiotics for urinary tract
infection with clinical improvement. He was subsequently found to have Proteus bacteremia and developed a drug-induced liver injury believed to be due to treatment with IV cefepime. Antibiotic treatment was changed to ciprofloxacin and cefepime
was listed as an allergy in his chart. His subsequent blood cultures have remained sterile. The plan is to continue treatment with ciprofloxacin through 05/24/2025.
On 05/19/2025 he had an acute mental status change for which a stroke alert was called. CT imaging at that time showed acute on chronic subdural hematoma. Of note, he was recently found to have a spontaneous subdural hematoma on 04/07/2025 after his
outpatient neurologist recommended a routine CT brain for ongoing monitoring of his dementia. No specific intervention was required at that time however his low-dose aspirin was discontinued. He had been on prophylactic subcu heparin during this
admission which was discontinued after the acute on chronic subdural hematoma. The CT findings from 05/19/2025 were discussed with neurology and neurosurgery. Neurosurgical recommendation was for loading with IV Keppra and transfer to [facility] for closer neurosurgical evaluation and intervention if needed. He has remained hemodynamically stable. Patient's , Italo, has been updated about his care and is in agreement with the plan. Ambulance transport to [facility] has been arranged for 2100.
Discharge Plan
-
Patient Disposition: Acute Care Hospital
Discharge Orders:
Discharge Patient (As Directed); Ordered 05/19/25
Ordered By: Michael Payan
Discharge Date and Time
Print Language: LAO
[2025-05-19 17:16] LABS: Glucose - Point of Care 101 mg/dl (70-99)
--- NOTE | 2025-05-19 19:24 | PTCARENOTE ---
Attempted to call report x 2 to [facility] [phone]. First was answered, then put on hold until line went . Second time, no answer. 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 Transfer packet ready. Pt aware of plan.
[2025-05-19] MEDS: SENOKOT-S 1 TABLET PO (20:49)
[2025-05-19] MEDS: ARICEPT 20 MG PO (21:00)
== END 2025-05-20 01:00 | disposition short-term general hospital (02) | DRG 698 ==
LOC: 3 WEST ACU 16:59
PROVIDERS: Clinical Nurse Specialist Family Health; ADMITTING PHYSICIAN Hospitalist; ATTENDING PHYSICIAN Internal Medicine; CONSULT PHYSICIAN Specialist; CONSULT PHYSICIAN Student in an Organized Health Care Education/Training Program; EMERGENCY PHYSICIAN Student in an Organized Health Care Education/Training Program; FAMILY PHYSICIAN Family Medicine
DX: T83.510A Infection and inflammatory reaction due to cystostomy catheter, initial encounter (principal); A41.89 Other specified sepsis; I62.02 Nontraumatic subacute subdural hemorrhage; N13.30 Unspecified hydronephrosis; N17.9 Acute kidney failure, unspecified; Y73.2 Prosthetic and other implants, materials and accessory gastroenterology and urology devices associated with adverse incidents; Y84.8 Other medical procedures as the cause of abnormal reaction of the patient, or of later complication, without mention of misadventure at the time of the procedure; B96.4 Proteus (mirabilis) (morganii) as the cause of diseases classified elsewhere; E11.65 Type 2 diabetes mellitus with hyperglycemia; K52.89 Other specified noninfective gastroenteritis and colitis; E87.5 Hyperkalemia; F03.90 Unspecified dementia, unspecified severity, without behavioral disturbance, psychotic disturbance, mood disturbance, and anxiety; I25.10 Atherosclerotic heart disease of native coronary artery without angina pectoris; Z95.1 Presence of aortocoronary bypass graft; I10 Essential (primary) hypertension; K71.9 Toxic liver disease, unspecified; T36.1X5A Adverse effect of cephalosporins and other beta-lactam antibiotics, initial encounter; N31.9 Neuromuscular dysfunction of bladder, unspecified; D69.6 Thrombocytopenia, unspecified; Z66 Do not resuscitate; N39.490 Overflow incontinence; Z79.4 Long term (current) use of insulin; Z79.82 Long term (current) use of aspirin; Z79.899 Other long term (current) drug therapy
CPT/HCPCS: 70450; 74176; 80053; 81003; 81015; 82248; 82962; 83036; 83735; 84100; 85025; 85610; 85730; 86850; 86900; 86901; 87040; 87077; 87086; 87154; 87186; 87205; 93005; 96361; 96374; 97116; 97163; 97167; 97530; 99285

== ENCOUNTER 2025-07-17 11:55 | Emergency (ER) | payer OTHER, SELFPAY ==
[2025-07-17 12:08] VITALS: BP 166/94
[2025-07-17 12:27] LABS: Hematocrit 43.7 % (39.0-52.0); Hemoglobin 14.8 g/dL (13.0-18.0); Mean Corp Hgb Conc. 33.9 g/dL (33.0-37.0); Mean Corpuscular Volume 99.8 fL (80.0-94.0); Nucleated Red Blood Cells % 0 % (-); Platelet Count 205 10^3/uL (130-400); Red Cell Dist. Width 14.1 % (11.5-14.5)
[2025-07-17 12:43] LABS: AST (SGOT) 27 U/L (17-59); Albumin 4.5 g/dl (3.5-5.0); Alkaline Phosphatase 71 U/L (38-126); Blood Urea Nitrogen 19 mg/dl (9-20); Calcium 9.6 mg/dl (8.4-10.2); Carbon Dioxide 23 mmol/L (22-30); Chloride 105 mmol/L (98-107); Glucose 208 mg/dl (70-99); Potassium 4.4 mmol/L (3.5-5.1); Sodium 141 mmol/L (135-145); Total Protein 7.9 g/dl (6.3-8.2); eGFR 54.17
[2025-07-17 12:49] LABS: ALT (SGPT) 31 U/L (0-50)
--- NOTE | 2025-07-17 15:45 | ED.GENMED ---
History of Present Illness
General
Chief Complaint: Change in Mental Status
Source: patient and other (Friend)
Exam Limitations: none
Time Seen by Provider: 07/17/25 15:36
History of Present Illness
History of Present Illness:
See MDM
Past History
Past History
ED Past Medical History: CAD, HTN, Hypercholesterolemia, NIDDM, ID and Other (cardiac)
ED Past Surgical History: Cardiac (CABG x 2 1994)
Social History
Tobacco: Non-smoker
Alcohol: None
Personal: Partner
Living: other
Employment: Retired
Family History
Family History: Other
Phy Exam
Physical Exam
Physical Exam:
See MDM
Course
Orders/Labs/Results
Orders:
Orders
07/17/25 12:09
CT Head W/o Iv Contrast Urgent
Comment:
Reason For Exam: confusion, hx of brain bleed
07/17/25 12:18
Complete Blood Count/With Diff Urgent
Comprehensive Metabolic Panel Urgent
07/17/25 16:02
Ciprofloxacin HCl [Cipro] 500 mg PO ONCE ONE
07/17/25 16:07
Urine Culture Urgent
MAURO Source: Urine
Specimen Description:
Obtained by: Suprapubic
Date Specimen was Collected: 07/17/25
Time Specimen was Collected: 16:02
07/17/25 16:11
Speech Screening from Rickey Routine
Abnormal Lab Results
07/17/25
12:18
WBC 15.8 H 10^3/uL
(4.8-10.8)
RBC 4.38 L 10^6/uL
(4.70-6.10)
MCV 99.8 H fL
(80.0-94.0)
MCH 33.8 H pg
(27.0-31.0)
Abs Immat Gran (auto) 0.1 H 10^3/uL
(0-0.05)
Absolute Neuts (auto) 13.5 H 10^3/uL
(1.4-6.5)
Absolute Monos (auto) 0.8 H 10^3/uL
(0.1-0.6)
Neutrophils % 85.0 H %
(42.2-75.2)
Lymphocytes % 9.2 L %
(20.5-51.1)
Glucose 208 H mg/dl
(70-99)
07/17/25 12:18
07/17/25 12:18
Vital Signs
Initial and Last Documented VS:
Initial Vital Signs
Temp Pulse Resp BP Pulse Ox
97.5 F 90 19 166/94 99
07/17/25 12:08 07/17/25 12:08 07/17/25 12:08 07/17/25 12:08 07/17/25 12:08
Last Documented Vital Signs
Temp Pulse Resp BP Pulse Ox
97.5 F 97 17 154/87 98
07/17/25 12:08 07/17/25 16:00 07/17/25 16:00 07/17/25 16:00 07/17/25 16:00
MDM/Problems Addressed
Differential Diagnosis Includes:
Note:
CHIEF COMPLAINT(S)
Confusion
HISTORY OF PRESENT ILLNESS
The patient is an 84-year-old male presenting with confusion. The onset of symptoms occurred yesterday around 5:30 PM with significant bowel movement, and he has not passed stool since then. The patient reported feeling 'a little off,' which
suggests altered mental status or confusion. He has a history of urinary tract infections, though none recent, and is noted to have a suprapubic catheter in place. During examination, there was noted bloating with urine leaking around the suprapubic
catheter site. Welch bag was empty. Nurse did a bedside ultrasound showing greater than 600 mL in his bladder which confirmed discomfort for catheter. Will change his catheter
CHRONIC MEDICAL CONDITIONS SIGNIFICANTLY AFFECTING CARE
Chronic conditions affecting care include a history of urinary tract infections.
PHYSICAL EXAM
General: Alert, no acute distress.
Skin: Warm, dry.
Head: Normocephalic, atraumatic
Neck: Appears supple, trachea midline.
Eyes, Ears, Nose, Mouth, and Throat: Moist mucous membranes
Cardiovascular: No signs of cyanosis
Respiratory: Respirations are non-labored.
Abdomen: Mildly distended and palpable bladder. Urine noted leaking around the suprapubic catheter site
Musculoskeletal: No deformities
Neurological: No focal neurological deficit observed.
Psychiatric: Cooperative, appropriate mood and affect.
DIFFERENTIAL DIAGNOSIS
The Differential Diagnosis includes, in no particular order and is not limited to:
- Urinary tract infection
- Bowel obstruction
- Constipation
- Urinary catheter malfunction or blockage
- Electrolyte imbalance
- Dehydration
- Medication side effect
- Confusion secondary to infection
- Bowel perforation
- Fecal impaction
MEDICAL DECISION MAKING
-Complexity of Data Reviewed: Chronic conditions affecting care include a history of urinary tract infections.
-Data:
Category 1:
My independent review of nursing notes and vital signs indicates possible dehydration or bowel obstruction based on patients symptoms of bloating and lack of bowel movement since yesterday.
Category 3:
Discussion of management with the care team about the potential necessity to replace or evaluate the urinary catheter for possible obstruction.
-Risk:
Prescription medication or intervention not explicitly discussed, but management of the patients urinary catheter needs to be evaluated for potential clogging or malfunction.
DIAGNOSIS
- Altered mental status/confusion [R41.0 Disorientation, unspecified]
SUMMARY OF ENCOUNTER
The patient was evaluated in the emergency department for altered mental status. It was identified that the suprapubic catheter was not draining. The catheter was replaced, immediately relieving symptoms with a significant volume of urine being
removed. Urinalysis showed pyuria and sediment presence. The patient remained afebrile and demonstrated clinical improvement post-catheter change. Admission was offered; however, the patient and his spouse preferred discharge with home management.
Return precautions were discussed.
DISPOSITION
Discharge.
ASSESSMENT
The altered mental status was likely secondary to urinary catheter malfunction, possible urinary tract infection due to observed pyuria and sediment.
EMERGENCY TREATMENTS ADMINISTERED
The patient received a dose of ciprofloxacin after the catheter replacement.
PLAN
Continue ciprofloxacin for suspected infection. Monitor for return of symptoms and return to the emergency department if symptoms worsen or do not improve.
INDEPENDENT REVIEW OF LABS AND INTERPRETATION OF TESTS
My independent review of urinalysis indicates pyuria and presence of sediment.
PATIENT EDUCATION AND COUNSELING
The patient and spouse were educated on the signs and symptoms of potential infection recurrence, and the importance of monitoring the catheter for proper drainage. They were advised on return precautions for worsening symptoms.
FOLLOW-UP INSTRUCTIONS
The patient should follow up with their primary care physician for further evaluation and management.
MEDICATION RECONCILIATION
Ciprofloxacin was administered in the emergency department and a prescription was provided for continued use.
MEDICAL DECISION MAKING
-Complexity of Data Reviewed: Chronic conditions affecting care include a history of urinary tract infections. Differential diagnosis includes urinary tract infection, bowel obstruction, constipation, urinary catheter malfunction, electrolyte
imbalance, dehydration, medication side effect, confusion secondary to infection, bowel perforation, and fecal impaction.
-Risk: Prescription medication was prescribed�ciprofloxacin was recommended for managing possible urinary tract infection.
DIAGNOSIS
- Urinary Catheter Malfunction [R39.9 Urinary system disorder, unspecified]
- Possible Urinary Tract Infection [N39.0 Urinary tract infection, site not specified]
*Pulse Oximetry
SaO2: 99
Patient hypoxic: no
*Critical Care Note
Total Time (30-74mins, 75-104mins- exclusive of procedures): Not Applicable
ED Attending Note
-
Portions of this chart may have been created with voice recognition software.� Occasional wrong word or��sound alike� substitutions may have occurred due to the inherent limitations of voice recognition software.
Discharge Plan
Departure
Patient Disposition: Home (Routine Discharge)
Date of Disposition: 07/17/25
Time of Disposition: 17:22
Patient with high blood pressure during this ER visit?: Yes
Discharge Problem:
Acute UTI (urinary tract infection), Suprapubic catheter dysfunction
Instructions: Urinary tract infection in adults - ED (DC)
Prescriptions:
New
levofloxacin 500 mg Tablet
500 mg PO DAILY Qty: 6 0RF
No Action
donepezil 10 MG tablet
20 mg PO HS
ezetimibe 10 MG tablet
10 mg PO DAILY
memantine 10 MG tablet
10 mg PO BID
metformin 500 MG tablet
500 mg PO DAILY
metoprolol tartrate 50 mg Tablet
50 mg PO BID
cyanocobalamin (vitamin B-12) 1,000 mcg Tablet
1,000 mcg PO DAILY
therapeutic multivitamin Tablet
1 tab PO DAILY
Folic Acid 667 Dfe Folate
1 tab PO DAILY
rosuvastatin 40 mg tablet
40 mg PO DAILY
Referrals:
Mauricio Cook MD [Family Provider, Family Practice]
Activity Restrictions/Additional Instructions:
Please return for any worsening symptoms.
You may return at any time if you have further concerns.
Please follow up with your doctor at the first available appointment, preferably this week.
Your Prescriptions were sent to the pharmacy on file.
Thank you for choosing [facility].
Interventions
Interventions:
*General Assessment Last Done: 07/17/25 12:09
*Neglect/Abuse Screening Last Done: 07/17/25 16:10
*ED COVID-19 Vaccine History Last Done: 07/17/25 12:09
*ED Influenza Vaccine History Last Done: 07/17/25 12:09
*Risk Screen - Suicide (C-SSRS) Last Done: 07/17/25 16:10
ED- Neurological Assessment Last Done: 07/17/25 16:10
ED Swallowing Screen Last Done: 07/17/25 16:10
Discharge Date and Time
Print Language: NORWEGIAN
[2025-07-17 15:49] VITALS: BP 159/90
[2025-07-17 16:00] VITALS: BP 154/87
[2025-07-17] MEDS: CIPRO 500 MG PO (16:06)
--- NOTE | 2025-07-17 16:12 | EDRN ---
22f suprapubic catheter exchanged by md mari maria w/ assistance from this RN. patient tolerated procedure. sediment straw/yellow collored urine output into new hair bag. sent for ua and culture
[2025-07-17 17:26] VITALS: BP 108/68
== END 2025-07-17 18:13 | disposition home or self-care (01) ==
LOC: EMR 11:55
PROVIDERS: Emergency Medicine; EMERGENCY PHYSICIAN Student in an Organized Health Care Education/Training Program; FAMILY PHYSICIAN Family Medicine
DX: N39.0 Urinary tract infection, site not specified (principal); T83.010A Breakdown (mechanical) of cystostomy catheter, initial encounter; Y73.2 Prosthetic and other implants, materials and accessory gastroenterology and urology devices associated with adverse incidents; E11.9 Type 2 diabetes mellitus without complications; E78.00 Pure hypercholesterolemia, unspecified; I10 Essential (primary) hypertension; I25.10 Atherosclerotic heart disease of native coronary artery without angina pectoris; Z95.1 Presence of aortocoronary bypass graft
CPT/HCPCS: 99284; 70450; 80053; 85025; 87077; 87086; 87147; 87186